=== PATIENT | female | born 1950 | race Caucasian/White ===

== ENCOUNTER → 2017-02-19 | Outpatient (CLI) | payer OTHER ==
--- NOTE | 2017-02-19 15:19 | MAMMOGRAPHY REPORT ---
BILATERAL DIGITAL SCREENING MAMMOGRAM WITH CAD: 02/19/2017 CLINICAL HISTORY: Routine screening. TECHNIQUE: Current study was also evaluated with a Computer Aided Detection (CAD) system. Bilateral CC and MLO views were obtained. COMPARISON: Comparison is made to exams dated: 02/16/2016 mammogram, 01/03/2015 mammogram, 12/31/2013 m ammogram, 06/10/2011 mammogram, 06/05/2010 mammogram, and 05/26/2009 mammogram - [facility]. BREAST COMPOSITION: There are scattered areas of fibroglandular density in both breasts. FINDINGS: No suspicious masses, calcifications, or areas of architectural distortion are noted in ei ther breast. There has been no significant interval change compared to prior exams. Scattered bilate ral benign-appearing calcifications are not significantly changed. 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 IMPRESSION: ACR BI-RADS CATEGORY 2: BENIGN There is no mammographic evidence of malignancy. A 1 year screening mammogram is recommended. The pa tient will receive written notification of the results. Approximately 10% of breast cancers are not detected with mammography. A negative mammographic report should not delay biopsy if a clinically suggestive mass is present. Gloria Lucio M.D. /:02/19/2017 09:18:55 Photo Technologist: Eyad MARTINEZ(R)(M), [facility] letter sent: Normal 1/2 BI-RADS Code: ACR BI-RADS Category 2: Benign
== END | disposition home or self-care (01) ==
LOC: C.MAMM 08:35
PROVIDERS: ATTEND Family Medicine
DX: Z12.31 Encounter for screening mammogram for malignant neoplasm of breast (principal)

== ENCOUNTER 2020-11-24 10:23 | Inpatient (IN) ==
--- NOTE | 2020-11-24 10:26 | Emergency Department Note ---
Impression & Plan Sepsis, UTI (urinary tract infection), Elevated troponin, MIKE (acute kidney injury), Acute hypoxemic respiratory failure ED Provider Note NAME: ORIN KUMAR AGE: 70 SEX: F : 1950 ARRIVES VIA: Ambulance INFORMANT: Patient, ED PROVIDER(S): Terell Burton MD Chief Complaint: Low blood pressure HPI: Patient does present from home due to concern for lower blood pressure and decreased activity. The patient's had found her in her lift chair this morning but seem to be having some difficulty with weakness and strength. The patient does have a history of Parkinson's and had a fall maybe a couple of days ago. The patient denies any current pains in her head neck chest abdomen pelvis. EMS did report the patient was hypotensive 60s over 40s and did initiate IV fluids. T-max 99.1 per EMS. BSG was normal. The patient denies any acute complaints at the bedside other than feelings of general unwellness. The patient has been vaccinated for Covid. The states that nothing seemed to miss yesterday but this morning she was not quite herself. EMS also reported she seemed to have a strong smell of urine. ROS: See HPI for pertinent positives and negatives. A total of 10 systems were re viewed and otherwise negative. Past medical history: See below Surgical history: See below Social history: See below Physical Exam: GENERAL: Ill in appearance, nasal cannula in place and wearing glasses. EYE EXAM: Normal conjunctiva. PERRL, no anisocoria and EOM's grossly intact w/o pain. OROPHARYNX: Dry mucus membranes. Grossly normal dentition. NECK: Supple, no nuchal rigidity, no adenopathy, non-tender. No signs of meningismus. LUNGS: Clear to auscultation. Normal chest wall mechanics. HEART: NSR, no MRG. ABDOMEN: Abdomen soft, non-tender, normo-active bowel sounds, no masses, no rebo und or guarding. BACK: No CVA TTP. SKIN: No rashes and no bruising. UPPER EXTREMITIES: Upper extremities are grossly normal. LOWER EXTREMITIES: Grossly normal, trace pretibial edema. NEURO EXAM: A&O x3, cranial nerves II-XII grossly intact, normal speech, moves all 4 extremities on command w/o issue. Differential diagnoses: Sepsis, UTI, pneumonia, metabolic, electrolyte abnormalities, cardiac sources, intracerebral event, toxicologic, neurologic, as well as other pathologies. Course: Patient was seen and evaluated the bedside. Full history physical exam was performed. EKG interpreted by me Imaging Studies: See below Cardiac monitoring: An order was placed for continuous cardiac monitoring. The monitor shows a rate of 95 with sinus rhythm. MDM: Given the patient's hypotension sepsis protocols were initiated with Zosyn ordered, MRSA swab and Covid testing. The patient was to be resuscitated with 2 L of IV fluids. Given the T-max of 99 IV Tylenol was ordered. The patient did have mild improvement in her hypotension to 80s over 50s. The patient's blood work was concerning for sepsis given the patient's elevated white counts acute renal failure and urinalysis that appears grossly positive for infection. Covid and nasal MRSA screen negative. Chest x-ray does not show obvious infection. Pro-Pernell was elevated. Patient's initial troponin was positive. Patient denied any chest pains or shortness of breath. Believe this may be demand ischemia given the patient's sepsis. Patient's lactate was elevated. I did speak the on-call hospitalist and a Noni Silverio PA-C. Patient was admitted by Dr. Michel. They did order a CAT scan abdomen pelvis. This did show a 4 mm stone. They did speak with urology. Patient's initial lactate was 4.8 and subsequent was 3.5 after 2 L. The patient was ordered a subsequent 500 which would be approximately 3000 mL for the time EMS had arrived. Given the patient was still hypotensive peripheral Levophed was ordered. Patient was admitted to the intensive care unit. Critical Care: I have personally spent 95 minutes of critical care time in direct management of this patient. This includes bedside care, interpretation of diagnostic studies, and testing, discussion with consultants, patient, and family members, and other require inpatient management activities. This 95 minutes is in excess of all separately billable procedures. Past Med/Surg History Medical History (Updated 11/24/20 @ 16:32 by Terell Burton MD) MIKE (acute kidney injury) Elevated troponin HTN (hypertension) Hyperlipidemia Osteoporosis Parkinsons Sepsis UTI (urinary tract infection) Surgical History History of tubal ligation Family History Father Lung cancer Stroke Mother Hypertension Social History Smoking Status: Never smoker Hx Alcohol Use: No Hx Substance Use: No Preferred Language: Nepali Communication Ability: sedated Operations Mgr Required: No marital status: Current Living Situation: Spouse Feels Safe at Home: Yes Allergies Allergies Allergy/AdvReac Type Severity Reaction Status Date / Time No Known Allergies Allergy Unverified 11/24/20 13:15 Home Meds Home Medications Medication Instructions Recorded Confirmed alendronate 70 mg PO WK 11/24/20 11/24/20 amlodipine 5 mg PO DAILY 11/24/20 11/24/20 atorvastatin 20 mg PO DAILY 11/24/20 11/24/20 carbidopa-levodopa 1 tab PO TID 11/24/20 11/24/20 Results & Data (ED) Vital Signs Vital Signs - 24 hr 11/24/20 10:28 11/24/20 10:30 11/24/20 10:31 Temperature 38.0 C H Temperature Source Rectal Pulse Rate 98 H 98 H 95 H Pulse Rate from SpO2 Sensor 98 H 96 H Pulse Rhythm Regular Pulse Strength Normal Respiratory Rate 15 22 18 Respiratory Effort / Characteristics Non-Labored Spontaneous Respiratory Depth Normal Respiratory Pattern Regular Blood Pressure 146/109 H 146/109 H 71/42 L Blood Pressure Mean 121 121 51 Blood Pressure Position Lying Pulse Oximetry 91 87 L 97 Oxygen Delivery Method Room Air Nasal Cannula Oxygen Flow Rate 4 Sepsis Recent Fever Within 48 Hours Yes Sepsis New/Unexplained Change in Mental Status Yes Sepsis Action Taken by Nursing Physician Notified 11/24/20 10:55 11/24/20 11:00 11/24/20 11:12 Temperature Temperature Source Pulse Rate 96 H 96 H Pulse Rate from SpO2 Sensor 96 H 95 H Pulse Rhythm Pulse Strength Respiratory Rate 18 17 Respiratory Effort / Characteristics Respiratory Depth Respiratory Pattern Blood Pressure 65/42 L 70/41 L Blood Pressure Mean 49 50 Blood Pressure Position Pulse Oximetry 96 95 95 Oxygen Delivery Method Nasal Cannula Nasal Cannula Nasal Cannula Oxygen Flow Rate 4 4 4 Sepsis Recent Fever Within 48 Hours Sepsis New/Unexplained Change in Mental Status Sepsis Action Taken by Nursing 11/24/20 11:13 11/24/20 11:31 11/24/20 11:34 Temperature Temperature Source Pulse Rate 91 H 91 H Pulse Rate from SpO2 Sensor 92 H 91 H Pulse Rhythm Pulse Strength Respiratory Rate 22 17 Respiratory Effort / Characteristics Respiratory Depth Respiratory Pattern Blood Pressure 78/39 L 75/40 L Blood Pressure Mean 52 51 Blood Pressure Position Pulse Oximetry 95 99 98 Oxygen Delivery Method Nasal Cannula Oxygen Flow Rate 4 Sepsis Recent Fever Within 48 Hours Sepsis New/Unexplained Change in Mental Status Sepsis Action Taken by Nursing 11/24/20 11:40 11/24/20 11:50 11/24/20 11:51 Temperature Temperature Source Pulse Rate 90 91 H 91 H Pulse Rate from SpO2 Sensor 90 91 H 90 Pulse Rhythm Pulse Strength Respiratory Rate 19 18 17 Respiratory Effort / Characteristics Respiratory Depth Respiratory Pattern Blood Pressure 67/36 L 72/53 L Blood Pressure Mean 46 59 Blood Pressure Position Pulse Oximetry 98 98 98 Oxygen Delivery Method Oxygen Flow Rate Sepsis Recent Fever Within 48 Hours Sepsis New/Unexplained Change in Mental Status Sepsis Action Taken by Nursing 11/24/20 12:00 11/24/20 12:01 11/24/20 12:10 Temperature Temperature Source Pulse Rate 86 87 88 Pulse Rate from SpO2 Sensor 86 87 88 Pulse Rhythm Pulse Strength Respiratory Rate 16 16 17 Respiratory Effort / Characteristics Respiratory Depth Respiratory Pattern Blood Pressure 74/38 L 71/42 L Blood Pressure Mean 50 51 Blood Pressure Position Pulse Oximetry 99 99 99 Oxygen Delivery Method Oxygen Flow Rate Sepsis Recent Fever Within 48 Hours Sepsis New/Unexplained Change in Mental Status Sepsis Action Taken by Nursing 11/24/20 12:11 11/24/20 12:20 11/24/20 12:21 Temperature Temperature Source Pulse Rate 88 90 91 H Pulse Rate from SpO2 Sensor 88 90 92 H Pulse Rhythm Pulse Strength Respiratory Rate 16 16 16 Respiratory Effort / Characteristics Respiratory Depth Respiratory Pattern Blood Pressure 78/51 L Blood Pressure Mean 60 Blood Pressure Position Pulse Oximetry 99 97 94 Oxygen Delivery Method Oxygen Flow Rate Sepsis Recent Fever Within 48 Hours Sepsis New/Unexplained Change in Mental Status Sepsis Action Taken by Nursing 11/24/20 12:30 11/24/20 12:33 11/24/20 12:41 Temperature Temperature Source Pulse Rate 91 H 90 91 H Pulse Rate from SpO2 Sensor 91 H 90 91 H Pulse Rhythm Pulse Strength Respiratory Rate 18 16 17 Respiratory Effort / Characteristics Respiratory Depth Respiratory Pattern Blood Pressure 61/48 L 80/46 L 81/46 L Blood Pressure Mean 52 57 57 Blood Pressure Position Pulse Oximetry 98 98 93 Oxygen Delivery Method Oxygen Flow Rate Sepsis Recent Fever Within 48 Hours Sepsis New/Unexplained Change in Mental Status Sepsis Action Taken by Nursing 11/24/20 12:51 11/24/20 13:02 11/24/20 13:10 Temperature Temperature Source Pulse Rate 93 H 92 H 92 H Pulse Rate from SpO2 Sensor 93 H 92 H Pulse Rhythm Pulse Strength Respiratory Rate 18 17 21 Respiratory Effort / Characteristics Respiratory Depth Respiratory Pattern Blood Pressure 77/48 L 95/56 L 77/45 L Blood Pressure Mean 57 69 55 Blood Pressure Position Pulse Oximetry 96 95 95 Oxygen Delivery Method Oxygen Flow Rate Sepsis Recent Fever Within 48 Hours Sepsis New/Unexplained Change in Mental Status Sepsis Action Taken by Nursing 11/24/20 13:30 Temperature Temperature Source Pulse Rate Pulse Rate from SpO2 Sensor 92 H Pulse Rhythm Pulse Strength Respiratory Rate 20 Respiratory Effort / Characteristics Respiratory Depth Respiratory Pattern Blood Pressure 74/44 L Blood Pressure Mean 54 Blood Pressure Position Pulse Oximetry 96 Oxygen Delivery Method Oxygen Flow Rate Sepsis Recent Fever Within 48 Hours Sepsis New/Unexplained Change in Mental Status Sepsis Action Taken by Detention Medications Current Medication List: was personally reviewed by me Laboratory Data Attestation: I reviewed the patient's lab results. Result diagrams: 11/24/20 11:17 11/24/20 11:17 Lab Results 11/24/20 11/24/20 11/24/20 Range/Units 10:55 11:17 11:17 WBC 27.92 H (4.8-10.8) K/uL RBC 4.26 (4.2-5.4) M/uL Hgb 12.1 (12.0-16.0) g/dL Hct 36.5 L (37-47) % MCV 85.7 (80-100) fL MCH 28.4 (25-34) pg MCHC 33.2 (32-36) g/dL RDW Std Deviation 49.7 H (36.4-46.3) fL RDW Coeff of Donato 15.8 H (11.5-14.5) % Plt Count 92 L (130-400) K/uL MPV 11.1 H (7.4-10.4) fL Immature Gran % (Auto) 2.3 % Neut % (Auto) 91.9 % Lymph % (Auto) 2.6 % Long % (Auto) 3.1 % Eos % (Auto) 0.0 % Baso % (Auto) 0.1 % Neut # (Auto) 25.66 H (1.4-6.5) K/uL Lymph # (Auto) 0.73 L (1.2-3.4) K/uL Long # (Auto) 0.86 H (0.11-0.59) K/uL Eos # (Auto) 0.01 (0-0.5) K/uL Baso # (Auto) 0.02 (0-0.2) K/uL Immature Gran # (Auto) 0.64 H (0.00-0.02) K/uL Toxic Vacuolation 2+ Platelet Estimate Decreased L (Normal) PT 13.6 H (9.0-12.0) Seconds INR 1.4 H (0.9-1.1) APTT 44.8 H (21.0-31.0) Seconds PTT Ratio 1.7 Sodium (136-145) mmol/L Potassium (3.5-5.1) mmol/L Chloride (98-107) mmol/L Carbon Dioxide (21-32) mmol/L Anion Gap (3-11) BUN (7-18) mg/dl Creatinine (0.6-1.2) mg/dl Est Cr Clr Drug Dosing ml/min Est GFR ( Amer) ml/min Est GFR (Non-Af Amer) ml/min BUN/Creatinine Ratio (10-20) Glucose (70-99) mg/dl Lactate (0.4-2.0) mmol/L Calcium (8.5-10.1) mg/dl Magnesium (1.8-2.4) mg/dl Total Bilirubin (0.2-1) mg/dl AST (15-37) U/L ALT (12-78) U/L Alkaline Phosphatase (45-117) U/L Troponin I (0-0.045) ng/ml Total Protein (6.4-8.2) gm/dl Albumin (3.4-5.0) gm/dl Globulin (2.5-4.0) gm/dl Albumin/Globulin Ratio (0.9-2) Procalcitonin (0-0.5) ng/ml Random Cortisol mcg/dl Urine Color [place] Urine Appearance Turbid A (Clear) Urine pH 7.0 (4.5-7.5) Ur Specific [place] 1.015 (1.000-1.030) Urine Protein 2+ H (Negative) Urine Glucose (UA) Negative (Negative) Urine Ketones Trace H (Negative) Urine Blood 3+ H (Negative) Urine Nitrite Negative (Negative) Urine Bilirubin Negative (Negative) Urine Urobilinogen Negative (Negative) Ur Leukocyte Esterase 3+ H (Negative) Urine WBC (Auto) >30 H (0-5) /hpf Urine RBC (Auto) >30 H (0-4) /hpf U Hyaline Cast (Auto) 10-30 H (0-5) /lpf U Epithel Cells (Auto) >30 H (0-5) /lpf Urine Bacteria (Auto) 4+ H (Negative) Nasal Screen MRSA (PCR) (Negative) COVID-19 Eval Order SARS-CoV-2 (PCR) (Negative) 11/24/20 11/24/20 11/24/20 Range/Units 11:17 11:17 11:17 WBC (4.8-10.8) K/uL RBC (4.2-5.4) M/uL Hgb (12.0-16.0) g/dL Hct (37-47) % MCV (80-100) fL MCH (25-34) pg MCHC (32-36) g/dL RDW Std Deviation (36.4-46.3) fL RDW Coeff of Donato (11.5-14.5) % Plt Count (130-400) K/uL MPV (7.4-10.4) fL Immature Gran % (Auto) % Neut % (Auto) % Lymph % (Auto) % Long % (Auto) % Eos % (Auto) % Baso % (Auto) % Neut # (Auto) (1.4-6.5) K/uL Lymph # (Auto) (1.2-3.4) K/uL Long # (Auto) (0.11-0.59) K/uL Eos # (Auto) (0-0.5) K/uL Baso # (Auto) (0-0.2) K/uL Immature Gran # (Auto) (0.00-0.02) K/uL Toxic Vacuolation Platelet Estimate (Normal) PT (9.0-12.0) Seconds INR (0.9-1.1) APTT (21.0-31.0) Seconds PTT Ratio Sodium 141 (136-145) mmol/L Potassium 3.3 L (3.5-5.1) mmol/L Chloride 108 H (98-107) mmol/L Carbon Dioxide 21 (21-32) mmol/L Anion Gap 13.0 H (3-11) BUN 47 H (7-18) mg/dl Creatinine 3.88 H (0.6-1.2) mg/dl Est Cr Clr Drug Dosing 15.2 ml/min Est GFR ( Amer) 12.7 ml/min Est GFR (Non-Af Amer) 10.9 ml/min BUN/Creatinine Ratio 12.1 (10-20) Glucose 80 (70-99) mg/dl Lactate 4.8 H* (0.4-2.0) mmol/L Calcium 8.1 L (8.5-10.1) mg/dl Magnesium 1.8 (1.8-2.4) mg/dl Total Bilirubin 1.0 (0.2-1) mg/dl AST 131 H (15-37) U/L ALT 67 (12-78) U/L Alkaline Phosphatase 98 (45-117) U/L Troponin I 0.156 H* (0-0.045) ng/ml Total Protein 5.8 L (6.4-8.2) gm/dl Albumin 2.7 L (3.4-5.0) gm/dl Globulin 3.1 (2.5-4.0) gm/dl Albumin/Globulin Ratio 0.9 (0.9-2) Procalcitonin > 200.00 H (0-0.5) ng/ml Random Cortisol mcg/dl Urine Color Urine Appearance (Clear) Urine pH (4.5-7.5) Ur Specific [place] (1.000-1.030) Urine Protein (Negative) Urine Glucose (UA) (Negative) Urine Ketones (Negative) Urine Blood (Negative) Urine Nitrite (Negative) Urine Bilirubin (Negative) Urine Urobilinogen (Negative) Ur Leukocyte Esterase (Negative) Urine WBC (Auto) (0-5) /hpf Urine RBC (Auto) (0-4) /hpf U Hyaline Cast (Auto) (0-5) /lpf U Epithel Cells (Auto) (0-5) /lpf Urine Bacteria (Auto) (Negative) Nasal Screen MRSA (PCR) (Negative) COVID-19 Eval Order SARS-CoV-2 (PCR) (Negative) 11/24/20 11/24/20 11/24/20 Range/Units 11:17 11:20 11:20 WBC (4.8-10.8) K/uL RBC (4.2-5.4) M/uL Hgb (12.0-16.0) g/dL Hct (37-47) % MCV (80-100) fL MCH (25-34) pg MCHC (32-36) g/dL RDW Std Deviation (36.4-46.3) fL RDW Coeff of Donato (11.5-14.5) % Plt Count (130-400) K/uL MPV (7.4-10.4) fL Immature Gran % (Auto) % Neut % (Auto) % Lymph % (Auto) % Long % (Auto) % Eos % (Auto) % Baso % (Auto) % Neut # (Auto) (1.4-6.5) K/uL Lymph # (Auto) (1.2-3.4) K/uL Long # (Auto) (0.11-0.59) K/uL Eos # (Auto) (0-0.5) K/uL Baso # (Auto) (0-0.2) K/uL Immature Gran # (Auto) (0.00-0.02) K/uL Toxic Vacuolation Platelet Estimate (Normal) PT (9.0-12.0) Seconds INR (0.9-1.1) APTT (21.0-31.0) Seconds PTT Ratio Sodium (136-145) mmol/L Potassium (3.5-5.1) mmol/L Chloride (98-107) mmol/L Carbon Dioxide (21-32) mmol/L Anion Gap (3-11) BUN (7-18) mg/dl Creatinine (0.6-1.2) mg/dl Est Cr Clr Drug Dosing ml/min Est GFR ( Amer) ml/min Est GFR (Non-Af Amer) ml/min BUN/Creatinine Ratio (10-20) Glucose (70-99) mg/dl Lactate (0.4-2.0) mmol/L Calcium (8.5-10.1) mg/dl Magnesium (1.8-2.4) mg/dl Total Bilirubin (0.2-1) mg/dl AST (15-37) U/L ALT (12-78) U/L Alkaline Phosphatase (45-117) U/L Troponin I (0-0.045) ng/ml Total Protein (6.4-8.2) gm/dl Albumin (3.4-5.0) gm/dl Globulin (2.5-4.0) gm/dl Albumin/Globulin Ratio (0.9-2) Procalcitonin (0-0.5) ng/ml Random Cortisol 107.18 mcg/dl Urine Color Urine Appearance (Clear) Urine pH (4.5-7.5) Ur Specific [place] (1.000-1.030) Urine Protein (Negative) Urine Glucose (UA) (Negative) Urine Ketones (Negative) Urine Blood (Negative) Urine Nitrite (Negative) Urine Bilirubin (Negative) Urine Urobilinogen (Negative) Ur Leukocyte Esterase (Negative) Urine WBC (Auto) (0-5) /hpf Urine RBC (Auto) (0-4) /hpf U Hyaline Cast (Auto) (0-5) /lpf U Epithel Cells (Auto) (0-5) /lpf Urine Bacteria (Auto) (Negative) Nasal Screen MRSA (PCR) Negative (Negative) COVID-19 Eval Order Covid19 at [facility] SARS-CoV-2 (PCR) (Negative) 11/24/20 Range/Units 11:20 WBC (4.8-10.8) K/uL RBC (4.2-5.4) M/uL Hgb (12.0-16.0) g/dL Hct (37-47) % MCV (80-100) fL MCH (25-34) pg MCHC (32-36) g/dL RDW Std Deviation (36.4-46.3) fL RDW Coeff of Donato (11.5-14.5) % Plt Count (130-400) K/uL MPV (7.4-10.4) fL Immature Gran % (Auto) % Neut % (Auto) % Lymph % (Auto) % Long % (Auto) % Eos % (Auto) % Baso % (Auto) % Neut # (Auto) (1.4-6.5) K/uL Lymph # (Auto) (1.2-3.4) K/uL Long # (Auto) (0.11-0.59) K/uL Eos # (Auto) (0-0.5) K/uL Baso # (Auto) (0-0.2) K/uL Immature Gran # (Auto) (0.00-0.02) K/uL Toxic Vacuolation Platelet Estimate (Normal) PT (9.0-12.0) Seconds INR (0.9-1.1) APTT (21.0-31.0) Seconds PTT Ratio Sodium (136-145) mmol/L Potassium (3.5-5.1) mmol/L Chloride (98-107) mmol/L Carbon Dioxide (21-32) mmol/L Anion Gap (3-11) BUN (7-18) mg/dl Creatinine (0.6-1.2) mg/dl Est Cr Clr Drug Dosing ml/min Est GFR ( Amer) ml/min Est GFR (Non-Af Amer) ml/min BUN/Creatinine Ratio (10-20) Glucose (70-99) mg/dl Lactate (0.4-2.0) mmol/L Calcium (8.5-10.1) mg/dl Magnesium (1.8-2.4) mg/dl Total Bilirubin (0.2-1) mg/dl AST (15-37) U/L ALT (12-78) U/L Alkaline Phosphatase (45-117) U/L Troponin I (0-0.045) ng/ml Total Protein (6.4-8.2) gm/dl Albumin (3.4-5.0) gm/dl Globulin (2.5-4.0) gm/dl Albumin/Globulin Ratio (0.9-2) Procalcitonin (0-0.5) ng/ml Random Cortisol mcg/dl Urine Color Urine Appearance (Clear) Urine pH (4.5-7.5) Ur Specific [place] (1.000-1.030) Urine Protein (Negative) Urine Glucose (UA) (Negative) Urine Ketones (Negative) Urine Blood (Negative) Urine Nitrite (Negative) Urine Bilirubin (Negative) Urine Urobilinogen (Negative) Ur Leukocyte Esterase (Negative) Urine WBC (Auto) (0-5) /hpf Urine RBC (Auto) (0-4) /hpf U Hyaline Cast (Auto) (0-5) /lpf U Epithel Cells (Auto) (0-5) /lpf Urine Bacteria (Auto) (Negative) Nasal Screen MRSA (PCR) (Negative) COVID-19 Eval Order SARS-CoV-2 (PCR) NEGATIVE (Negative) Administered Medications Norepinephrine Bitartrate (Levophed/D5w) 8 mg in 508 mls @ 18.726 mls/hr IV .Q24H CHRISTIAN; Protocol Stop: 12/24/20 13:59 Last Titration: 11/24/20 15:30 Dose: 0 mcg/kg/min, 0 mls/hr Documented by: [id number] Titration: 11/24/20 14:35 Dose: 0.07 mcg/kg/min, 26.2 mls/hr Documented by: [id number] Admin: 11/24/20 14:09 Dose: 0.05 mcg/kg/min, 18.7 mls/hr Documented by: [id number] Cosigned by: [id number] Parenteral Electrolytes (Normosol-R) 1,000 mls @ 200 mls/hr IV .Q5H CHRISTIAN Stop: 12/24/20 15:59 Last Admin: 11/24/20 16:23 Dose: 200 mls/hr Documented by: [id number] Piperacillin Sod/Tazobactam (Sod 3.375 gm/ Dextrose) 115 mls @ 28.75 mls/hr IV Q12H CHRISTIAN; Protocol Stop: 12/03/20 19:59 Last Admin: 11/24/20 16:27 Dose: 28.8 mls/hr Documented by: [id number] Discontinued Medications Sodium Chloride (Nss 1000ml) 1,000 mls @ 999 mls/hr IV .Q1H1M [facility]RISTIAN Stop: 11/24/20 11:34 Last Infusion: 11/24/20 12:03 Dose: 0 mls/hr Documented by: [id number] Admin: 11/24/20 11:02 Dose: 999 mls/hr Documented by: [id number] Sodium Chloride (Nss 1000ml) 1,000 mls @ 999 mls/hr IV .Q1H1M CHRISTIAN Stop: 11/24/20 12:34 Last Infusion: 11/24/20 12:03 Dose: 0 mls/hr Documented by: [id number] Admin: 11/24/20 11:02 Dose: 999 mls/hr Documented by: [id number] Piperacillin Sod/Tazobactam Sod (Zosyn) 4.5 gm in 120 mls @ 240 mls/hr IV NOW ONE Stop: 11/24/20 11:03 Last Infusion: 11/24/20 12:03 Dose: 0 mls/hr Documented by: [id number] Admin: 11/24/20 11:34 Dose: 240 mls/hr Documented by: [id number] Acetaminophen (Ofirmev) 1,000 mg in 100 mls @ 400 mls/hr IV NOW STA Stop: 11/24/20 10:52 Last Infusion: 11/24/20 11:49 Dose: 0 mls/hr Documented by: [id number] Admin: 11/24/20 11:34 Dose: 400 mls/hr Documented by: [id number] Sodium Chloride (Nss 1000ml) 500 mls @ 999 mls/hr IV .Q31M ONE Stop: 11/24/20 14:27 Last Infusion: 11/24/20 14:38 Dose: 0 mls/hr Documented by: [id number] Admin: 11/24/20 13:59 Dose: 999 mls/hr Documented by: [id number] Miscellaneous (Stat Iv Infusion Titration Per Protocol) 1 ea N/A NOW STA Stop: 11/24/20 13:59 Last Admin: 11/24/20 14:39 Dose: Not Given Documented by: [id number] Imaging Data Radiologist's Impression: Chest X-Ray 11/24/20 10:34 XR chest 1V portable CLINICAL HISTORY: SEPSIS COMPARISON STUDY: No previous studies for comparison. FINDINGS: Incidental note is made of deformity of the left humeral head with severe osteoarthritis. Lung volumes are diminished. There may be a trace left pleural effusion. There is mild left basilar opacity. Cardiomegaly is noted. There is vascular congestion. Patient is rotated. Calcified granuloma within the left lower lung is noted. IMPRESSION: 1. Suspected trace left pleural effusion with mild left basilar opacity that favors atelectasis. 2. Cardiomegaly. Pulmonary vascular congestion. ACT 112: Negative or not required by law. Electronically signed by: Prasanna De Santiago M.D. 11/24/2020 11:22 AM Abdomen/Pelvis CT 11/24/20 12:[address] WITHOUT CONTRAST CT DOSE: 1206.15 mGycm HISTORY: Right-sided flank pain. eval for pyelonephritis/renal stone TECHNIQUE: Multiaxial CT images of the abdomen and pelvis were performed without contrast. A dose lowering technique was utilized adhering to the principles of ALARA. COMPARISON STUDY: None. FINDINGS: There are few small right renal calculi with the largest in the lower pole measuring 5 mm. Mild bilateral perinephric edema/fat stranding, right greater the left. There appear to be bilateral peripelvic cysts. There is also a 1.5 cm right exophytic hypodense lesion within the right kidney likely representing a cyst. There is mild to moderate right-sided hydroureteronephrosis secondary to an obstructing 4 mm stone within the distal right ureter best seen on image 388. This is immediately proximal to the right ureterovesical junction. The bladder is decompressed by Victor catheter. No left-sided hydronephrosis. Calcified granuloma seen within the base of the left lower lobe. There are patchy densities within the lungs posteriorly. This favors atelectasis/dependent change. No pneumoperitoneum. No pneumatosis. No suspicious lytic or blastic osseous lesions. There is a small fat-containing umbilical hernia. The uterus and bilateral adnexa are within normal limits. No pelvic free fluid. Suboptimal evaluation for bowel pathology due to the lack of intravenous and oral contrast. However, there is no definite bowel wall thickening or obstruction. Normal appendix. Layering density within the gallbladder favors small stones. The unenhanced liver, spleen, and pancreas are unremarkable. No retroperitoneal lymphadenopathy. Normal right adrenal gland. There is nodular thickening of the left adrenal gland. IMPRESSION: 1. A 4 mm obstructing stone within the distal right ureter resulting in mild to moderate right-sided hydronephrosis. 2. Right-sided nephrolithiasis. 3. No definite bowel wall thickening or obstruction. 4. Consolidation within the lungs posteriorly favors atelectasis. A pneumonia could also have a similar appearance. 4. Possible cholelithiasis. No gallbladder wall thickening. 6. The bladder is decompressed by Victor catheter. ACT 112: Negative or not required by law. Electronically signed by: Brad Langford M.D. 11/24/2020 1:43 PM Discharge Plan Visit Data Chief Complaint: Illness ED Provider: Terell Burton Discharge Problem: Sepsis, UTI (urinary tract infection), Elevated troponin, MIKE (acute kidney injury), Acute hypoxemic respiratory failure Discharge Instructions Interventions: ED Discharge Assessment Last Done: 11/24/20 14:42 Discharge Problem: Sepsis Qualifiers: Sepsis type: sepsis due to unspecified organism Sepsis acute organ dysfunction status: with acute organ dysfunction Severe sepsis acute organ dysfunction type: acute renal failure Acute renal failure type: unspecified Severe sepsis shock status: with septic shock Qualified Code(s): A41.9 - Sepsis, unspecified organism UTI (urinary tract infection) Qualifiers: Urinary tract infection type: site unspecified
[2020-11-24] MEDS ORDERED: PIPERACILL/TAZOBAC CONSULT ACTIVE PRN (10:34)
[2020-11-24] MEDS ORDERED: PIPERACILLIN/TAZOBACTAM 4.5 GM/120 ML BAG IV ONE (10:34)
[2020-11-24] MEDS ORDERED: ACETAMINOPHEN 1,000 MG/100 ML VIAL IV STA (10:38)
[2020-11-24] MEDS ORDERED: SODIUM CHLORIDE 0.9% 1000ML 1,000 ML IV SCH ×2 (10:45→11:34)
--- NOTE | 2020-11-24 11:24 | XRay Report ---
XR chest 1V portable CLINICAL HISTORY: SEPSIS COMPARISON STUDY: No previous studies for comparison. FINDINGS: Incidental note is made of deformity of the left humeral head with severe osteoarthritis. L michelle volumes are diminished. There may be a trace left pleural effusion. There is mild left basilar op acity. Cardiomegaly is noted. There is vascular congestion. Patient is rotated. Calcified granuloma w ithin the left lower lung is noted. IMPRESSION: 1. Suspected trace left pleural effusion with mild left basilar opacity that favors atelectasis. 2. Cardiomegaly. Pulmonary vascular congestion. ACT 112: Negative or not required by law. Electronically signed by: Prasanna De Santiago M.D. 11/24/2020 11:22 AM
[2020-11-24 11:31] LABS: Appearance Urine Turbid (Clear); Bacteria Urine Automated 4+ (Negative); Bilirubin Urine Negative (Negative); Blood Urine 3+ (Negative); Color Urine Orange; Epithelial Cell Urine Auto >30 /lpf (0-5); Glucose Urine UA Negative (Negative); Ketones Urine Trace (Negative); Leukocyte Esterase Urine 3+ (Negative); Nitrite Urine Negative (Negative); Protein Urine 2+ (Negative); RBC Urine Automated >30 /hpf (0-4); Specific Gravity Urine 1.015 (1.000-1.030); Urobilinogen Urine Negative (Negative); WBC Urine Automated >30 /hpf (0-5)
[2020-11-24 11:37] LABS: INR 1.4 (0.9-1.1); Partial Thromboplastin Ratio 1.7; Partial Thromboplastin Time 44.8 Seconds (21.0-31.0); Prothrombin Time 13.6 Seconds (9.0-12.0)
--- NOTE | 2020-11-24 11:42 | Electrocardiogram Report ---
Test Reason : Blood Pressure : / mmHG Vent. Rate : 096 BPM Atrial Rate : 096 BPM P-R Int : 158 ms QRS Dur : 072 ms QT Int : 380 ms P-R-T Axes : 030 005 009 degrees QTc Int : 480 ms Poor data quality, interpretation may be adversely affected Normal sinus rhythm Nonspecific ST and T wave abnormality Abnormal ECG No previous ECGs available Confirmed by Pedro Mayo ([id number]) on 11/24/2020 11:42:37 AM Referred By: REFERRED SELF Confirmed By:Giovanni Mayo
[2020-11-24 11:46] LABS: Albumin Level 2.7 gm/dl (3.4-5.0); BUN Creatinine Ratio 12.1 (10-20); Basophils # (auto) 0.02 K/uL (0-0.2); Basophils % (auto) 0.1 %; Calcium 8.1 mg/dl (8.5-10.1); Creatinine Clr Calc Pharmacy 15.2 ml/min; Eosinophils # (auto) 0.01 K/uL (0-0.5); Est GFR (African American) 12.7 ml/min; Est GFR (Non-African American) 10.9 ml/min; Hematocrit (blood only) 36.5 % (37-47); Hemoglobin 12.1 g/dL (12.0-16.0); Immature Granulocytes # (auto) 0.64 K/uL (0.00-0.02); Immature Granulocytes % (auto) 2.3 %; Lymphocytes # (auto) 0.73 K/uL (1.2-3.4); Lymphocytes % (auto) 2.6 %; Magnesium 1.8 mg/dl (1.8-2.4); Mean Corpuscular Hemoglobin 28.4 pg (25-34); Mean Corpuscular Hgb Conc 33.2 g/dL (32-36); Mean Corpuscular Volume 85.7 fL (80-100); Mean Platelet Volume 11.1 fL (7.4-10.4); Monocytes # (auto) 0.86 K/uL (0.11-0.59); Monocytes % (auto) 3.1 %; Neutrophils # (auto) 25.66 K/uL (1.4-6.5); Neutrophils % (auto) 91.9 %; Platelet Count 92 K/uL (130-400); Platelet Estimate Decreased (Normal); Potassium 3.3 mmol/L (3.5-5.1); RDW Coefficient of Variation 15.8 % (11.5-14.5); RDW Standard Deviation 49.7 fL (36.4-46.3); Red Blood Count 4.26 M/uL (4.2-5.4); Toxic Vacuolation 2+; White Blood Count 27.92 K/uL (4.8-10.8)
[2020-11-24 12:07] LABS: Albumin Globulin Ratio 0.9 (0.9-2); Globulin 3.1 gm/dl (2.5-4.0); Total Protein 5.8 gm/dl (6.4-8.2); Troponin I 0.156 ng/ml (0-0.045)
--- NOTE | 2020-11-24 13:07 | Communication Note ---
Date of Service: November 24, 2020 This is a 70-year-old female with past medical history of hyperlipidemia/hypertension, presented with confusion and altered mental status as generalized weakness, Found to be in severe sepsis with septic shock, source of infection possible UTI/pyelonephritis Patient is very lethargic in the ER information obtained mostly from patient's present at bedside Per , in the evening patient was found to be very weak and lethargic, found her on the chair, alf between falling down to floor, He tried to help the patient get up on the chair, Does not recall whether patient had any fever or chills This morning as her condition worsened brought to SBP was 61/48 And received IV fluid bolus 2 L, Victor catheter was inserted, no urine output noted Marked leukocytosis 27K with left shift, thrombocytopenia Elevated lactic acid of 4, spontaneous coagulopathy with INR 1.4, on no anticoagulation Renal failure with creatinine more than 3 Per prior lab in clinic baseline creatinine 0.6 Patient remains lethargic, opens eyes briefly, and moaning with pain" states her back hurts" Physical exam: General ill-appearing, very lethargic, HEENT very dry oral mucosa Heart: Regular S1 and S2, tachycardia, bilateral +1 edema noted Lungs: No rales or wheeze noted Abdomen: Patient reports of having back pain, could not reproduce flank pain, very lethargic Abdomen soft, nontender bowel sounds active Neuro, difficult to assess, patient does move all limbs,/very lethargic, responding briefly to voice Assessment and plan Severe sepsis with septic shock: Patient meets criteria for severe sepsis, admitted with hypotension/ tachycardia, fever leukocytosis with elevated lactic acid level, acute renal failure Possible source?, UTI versus pyelonephritis Patient was given IV Zosyn in the ER, will continue with IV cefepime CT abdomen pelvis noncontrast to rule out ureteric obstructive stone Admit to ICU as patient remains profoundly hypotensive in spite of getting fluid resuscitation Urine and blood culture ordered Discussed with patient's at bedside, okay for mechanical ventilation/CPR/IV pressors,/dialysis if needed Case discussed briefly over phone with ICU attending Lethargy/metabolic encephalopathy: Secondary to severe sepsis, IV fluid resuscitation antibiotics as above Acute renal failure, anuria/possible ATN with elevated anion gap metabolic acidosis: Possible secondary to uremia, lactic acidosis secondary to hypotension severe sepsis Continue IV fluids, minimum Nephrology consulted, Avoid NSAIDs, CT abdomen pelvis noncontrast studies only With BMP, lactic acid in 4 hours Patient remains critically ill, updated at bedside CODE STATUS full code confirmed with patient's DVT prophylaxis: Pharmacological anticoagulation avoided secondary to thrombocytopenia(to severe sepsis) Patient requires ICU admission
--- NOTE | 2020-11-24 13:17 | History & Physical Report ---
Date of Service November 24, 2020 Assessment & Plan (1) Sepsis: (2) UTI (urinary tract infection): Pt is 70 y/o F with PMH HTN, HLD, Parkinson's, mild cognitive impairment, presented to ER with c/o weakness, lethargy, mental status change since yesterday afternoon. In ER patient febrile with temp 38C rectally, P: 98, RR: 22, BP 71/42, 87% on room air WBC: 27, PLT: 92, INR: 1.4, BUN: 47, Cr: 3.8, lactate: 4.8, pro calcitonin > 200, UA: Consistent with UTI CXR: Suspected trace left pleural effusion with mild left basilar opacity that favors atelectasis. Cardiomegaly. Pulmonary vascular congestion In ER given Zosyn, IV Tylenol. Pt BP at 81/46 after 2L NSS bolus Pt with Victor placed in ER with no urine output -Obtain CT abdomen pelvis to rule out obstructing stone causing urosepsis and MIKE -Pt to ICU. Still hypotensive. May require pressors -IVF -Trend lactate -Continue antibiotics (3) Elevated troponin: Elevated troponin: 0.15. EKG sinus rhythm with nonspecific ST changes Probable demand ischemia -Trend troponin -EKG in am (4) MIKE (acute kidney injury): BUN: 47, Cr: 3.8. Baseline Cr: 0.8 -May be secondary to sepsis, dehydration. Rule out obstructing calculi -Nephrology consult (5) Abnormal coagulation profile: PT: 13.6, INR: 1.4. Probable secondary to sepsis -Monitor coags (6) HTN (hypertension): Currently hypotensive -Hold home amlodipine (7) Parkinsons: [place] [facility] [place] Sinemet currently DVT Prophylaxis SCDs Full Code as per discussion with pt's Follows with Dr Martell for routine care Pt was seen and care coordinated with Dr Michel. See addendum History of Present Illness Chief Complaint: Weakness Primary Care Provider: Konstantin Martell MD Pt is 70 y/o F with PMH HTN, HLD, Parkinson's, mild cognitive impairment, presented to ER with c/o weakness, lethargy, mental status change since yesterday. Majority of history obtained from patient's secondary to patient's current condition. Patient's reports patient was in normal health yesterday morning and went to the [employer]. He states when he came home from work 6 hours later patient was sitting in her chair however was slumped over in chair. He reports that she was slow to respond and he thought she had some slurred speech. He states he tried to get her to the bathroom and she was staggering and having difficulty ambulating. He reports patient does not use any assistive devices for ambulation at baseline. He was able to get patient back in chair where she normally sleeps. Upon awakening this morning patient appeared more lethargic and had continued slow responses and EMS was called. In route EMS reported patient hypotensive. Patient currently complaining of back pain. She is alert to person place and year, and is slow to respond. Denies shortness of breath or chest pain or headache. reports patient with chronic postnasal drip and cough in the mornings however denies any noted increased cough. He is unaware of any fevers or chills or vomiting. He reports her last known BM was yesterday. Patient received second COVID-19 vaccination 4 days ago. Denies any known history of kidney stones in the past. reports patient normally needs to sit on toilet a while before she can urinate, he did not notice any blood in her urine when he took her to the bathroom yesterday. He does not think patient urinated since yesterday evening. Last ate breakfast yesterday. Last medications taken were yesterday morning. Denies recent travel, ill contacts. Allergies Allergy/AdvReac Type Severity Reaction Status Date / Time No Known Allergies Allergy Unverified 11/24/20 13:15 Home Medications Medication Instructions Recorded Confirmed Type alendronate 70 mg PO WK 11/24/20 11/24/20 History amlodipine 5 mg PO DAILY 11/24/20 11/24/20 History atorvastatin 20 mg PO DAILY 11/24/20 11/24/20 History carbidopa-levodopa 1 tab PO TID 11/24/20 11/24/20 History Past Med/Surg History Medical History HTN (hypertension) Hyperlipidemia Osteoporosis Parkinsons Surgical History History of tubal ligation Family History Father Lung cancer Stroke Mother Hypertension Social History Smoking Status: Never smoker Hx Alcohol Use: No Hx Substance Use: No Preferred Language: Azeri marital status: Current Living Situation: Spouse Feels Safe at Home: Yes Review of Systems Review of Systems: Unobtainable due to cognitive status Physical Exam Physical Exam: General: obese elderly female, +ill appearing Head: normocephalic, atraumatic Eyes: PERRL, EOM's intact, conjunctiva non-injected, anicteric ENT: normal inspection external ears, nose, mucous membranes dry Neck: supple, trachea midline Lungs: On 4L oxygen via NC with sat 98%, appear clear, no respiratory distress, no wheezing/rhonchi/rales CV: RRR, rate 98, no murmur, 2+ pretibial edema Abd: normal BS, soft, non-tender, no apparent CVA tenderness to palpation Ext: no cyanosis, no erythema Neuro: Alert, oriented to self, place and year however with slow responses Skin: warm, dry; sacrum with erythema and central eschar Results & Data Results & Data ([facility]) Vital Signs (Past 12 Hours) Vital Signs Temp Pulse Resp BP Pulse Ox 11/24/20 12:41 91 H 17 81/46 L 93 11/24/20 12:33 90 16 80/46 L 98 11/24/20 12:30 91 H 18 61/48 L 98 11/24/20 12:21 91 H 16 78/51 L 94 11/24/20 12:20 90 16 97 11/24/20 12:11 88 16 99 11/24/20 12:10 88 17 71/42 L 99 11/24/20 12:01 87 16 99 11/24/20 12:00 86 16 74/38 L 99 11/24/20 11:51 91 H 17 98 11/24/20 11:50 91 H 18 72/53 L 98 11/24/20 11:40 90 19 67/36 L 98 11/24/20 11:34 91 H 17 75/40 L 98 11/24/20 11:31 91 H 22 78/39 L 99 11/24/20 11:13 95 11/24/20 11:12 95 11/24/20 11:00 96 H 17 70/41 L 95 11/24/20 10:55 96 H 18 65/42 L 96 11/24/20 10:31 95 H 18 71/42 L 97 11/24/20 10:30 38.0 C H 98 H 22 146/109 H 87 L 11/24/20 10:28 98 H 15 146/109 H 91 Laboratory Results Short CBC 11/24/20 Range/Units 11:17 WBC 27.92 H (4.8-10.8) K/uL Hgb 12.1 (12.0-16.0) g/dL Hct 36.5 L (37-47) % Plt Count 92 L (130-400) K/uL BMP 11/24/20 11:17 Sodium 141 Potassium 3.3 L Chloride 108 H Carbon Dioxide 21 BUN 47 H Creatinine 3.88 H Glucose 80 Calcium 8.1 L Cardiac Enzymes 11/24/20 Range/Units 11:17 Troponin I 0.156 H* (0-0.045) ng/ml Liver Function 11/24/20 Range/Units 11:17 Total Bilirubin 1.0 (0.2-1) mg/dl AST 131 H (15-37) U/L ALT 67 (12-78) U/L Alkaline Phosphatase 98 (45-117) U/L Albumin 2.7 L (3.4-5.0) gm/dl Urine 11/24/20 Range/Units 10:55 Urine Color Wal[place] Urine Appearance Turbid A (Clear) Urine pH 7.0 (4.5-7.5) Ur Specific [place] 1.015 (1.000-1.030) Urine Protein 2+ H (Negative) Urine Glucose (UA) Negative (Negative) Diagnostic Findings Chest X-Ray 11/24/20 10:34 XR chest 1V portable CLINICAL HISTORY: SEPSIS COMPARISON STUDY: No previous studies for comparison. FINDINGS: Incidental note is made of deformity of the left humeral head with severe osteoarthritis. Lung volumes are diminished. There may be a trace left pleural effusion. There is mild left basilar opacity. Cardiomegaly is noted. There is vascular congestion. Patient is rotated. Calcified granuloma within the left lower lung is noted. IMPRESSION: 1. Suspected trace left pleural effusion with mild left basilar opacity that favors atelectasis. 2. Cardiomegaly. Pulmonary vascular congestion. ACT 112: Negative or not required by law. Electronically signed by: Prasanna De Santiago M.D. 11/24/2020 11:22 AM ECG Rate (beats per minute): 98 Rhythm: sinus rhythm Findings: + nonspecific-ST abn Supervising Physician Co-Signing Physician Notes This is a 70-year-old female with past medical history of hyperlipidemia/hypertension, presented with confusion and altered mental status as generalized weakness, Found to be in severe sepsis with septic shock, source of infection possible UTI/pyelonephritis Patient is very lethargic in the ER information obtained mostly from patient's present at bedside Per , in the evening patient was found to be very weak and lethargic, found her on the chair, senior living between falling down to floor, He tried to help the patient get up on the chair, Does not recall whether patient had any fever or chills This morning as her condition worsened brought to SBP was 61/48 And received IV fluid bolus 2 L, Victor catheter was inserted, no urine output noted Marked leukocytosis 27K with left shift, thrombocytopenia Elevated lactic acid of 4, spontaneous coagulopathy with INR 1.4, on no antico agulation Renal failure with creatinine more than 3 Per prior lab in clinic baseline creatinine 0.6 Patient remains lethargic, opens eyes briefly, and moaning with pain" states her back hurts" Physical exam: General ill-appearing, very lethargic, HEENT very dry oral mucosa Heart: Regular S1 and S2, tachycardia, bilateral +1 edema noted Lungs: No rales or wheeze noted Abdomen: Patient reports of having back pain, could not reproduce flank pain, very lethargic Abdomen soft, nontender bowel sounds active Neuro, difficult to assess, patient does move all limbs,/very lethargic, responding briefly to voice Assessment and plan Severe sepsis with septic shock: Patient meets criteria for severe sepsis, admitted with hypotension/ tachycardia, fever leukocytosis with elevated lactic acid level, acute renal failure Obstructed 4 mm ureteric stone with pyelonephritis Patient was given IV Zosyn in the ER, will continue with IV cefepime CT abdomen pelvis noncontrast This is a 70-year-old female with past medical history of hyperlipidemia/hypertension, presented with confusion and altered mental status as generalized weakness, Found to be in severe sepsis with septic shock, source of infection possible UTI/pyelonephritis Patient is very lethargic in the ER information obtained mostly from patient's present at bedside Per , in the evening patient was found to be very weak and lethargic, found her on the chair, senior living between falling down to floor, He tried to help the patient get up on the chair, Does not recall whether patient had any fever or chills This morning as her condition worsened brought to SBP was 61/48 And received IV fluid bolus 2 L, Victor catheter was inserted, no urine output noted Marked leukocytosis 27K with left shift, thrombocytopenia Elevated lactic acid of 4, spontaneous coagulopathy with INR 1.4, on no anticoagulation Renal failure with creatinine more than 3 Per prior lab in clinic baseline creatinine 0.6 Patient remains lethargic, opens eyes briefly, and moaning with pain" states her back hurts" Physical exam: General ill-appearing, very lethargic, HEENT very dry oral mucosa Heart: Regular S1 and S2, tachycardia, bilateral +1 edema noted Lungs: No rales or wheeze noted Abdomen: Patient reports of having back pain, could not reproduce flank pain, very lethargic Abdomen soft, nontender bowel sounds active Neuro, difficult to assess, patient does move all limbs,/very lethargic, responding briefly to voice Assessment and plan Severe sepsis with septic shock: Patient meets criteria for severe sepsis, admitted with hypotension/ tachycardia, fever leukocytosis with elevated lactic acid level, acute renal failure Possible source: Obstructed right-sided ureteric stone with pyelonephritis Patient was given IV Zosyn in the ER, will continue with IV cefepime Admit to ICU as patient remains profoundly hypotensive in spite of getting fluid resuscitation Urine and blood culture ordered Discussed with patient's at bedside, okay for mechanical ventilation/CPR/IV pressors,/dialysis if needed CT abdomen pelvis noncontrast 4 mm distal ureteric stone with right-sided hydronephrosis Patient seen in the ER by ICU attending stat urology consult placed, on-call urology aware, patient will be taken to the OR today for emergent ureteric stent placement Lethargy/metabolic encephalopathy: Secondary to severe sepsis, IV fluid resuscitation antibiotics as above Acute renal failure, anuria/possible ATN /due to obstructed ureteric stone CT abdomen pelvis as above/emergent urologic procedure will be done today Continue IV fluids, may need pressor support, 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 Lory Michel MD
--- NOTE | 2020-11-24 13:44 | CT Scan Report ---
ABDOMEN AND PELVIS CT WITHOUT CONTRAST CT DOSE: 1206.15 mGycm HISTORY: Right-sided flank pain. eval for pyelonephritis/renal stone TECHNIQUE: Multiaxial CT images of the abdomen and pelvis were performed without contrast. A dose lo wering technique was utilized adhering to the principles of ALARA. COMPARISON STUDY: None. FINDINGS: There are few small right renal calculi with the largest in the lower pole measuring 5 mm. Mild bilateral perinephric edema/fat stranding, right greater the left. There appear to be bilateral peripelvic cysts. There is also a 1.5 cm right exophytic hypodense lesion within the right kidney lik roberta representing a cyst. There is mild to moderate right-sided hydroureteronephrosis secondary to an obstructing 4 mm stone within the distal right ureter best seen on image 388. This is immediately pro ximal to the right ureterovesical junction. The bladder is decompressed by Victor catheter. No left-si ded hydronephrosis. Calcified granuloma seen within the base of the left lower lobe. There are patchy densities within the lungs posteriorly. This favors atelectasis/dependent change. No pneumoperitoneu m. No pneumatosis. No suspicious lytic or blastic osseous lesions. There is a small fat-containing um bilical hernia. The uterus and bilateral adnexa are within normal limits. No pelvic free fluid. Subop timal evaluation for bowel pathology due to the lack of intravenous and oral contrast. However, there is no definite bowel wall thickening or obstruction. Normal appendix. Layering density within the ga llbladder favors small stones. The unenhanced liver, spleen, and pancreas are unremarkable. No retrop eritoneal lymphadenopathy. Normal right adrenal gland. There is nodular thickening of the left adrena l gland. IMPRESSION: 1. A 4 mm obstructing stone within the distal right ureter resulting in mild to moderate right-sided hydronephrosis. 2. Right-sided nephrolithiasis. 3. No definite bowel wall thickening or obstruction. 4. Consolidation within the lungs posteriorly favors atelectasis. A pneumonia could also have a simil ar appearance. 4. Possible cholelithiasis. No gallbladder wall thickening. 6. The bladder is decompressed by Victor catheter. ACT 112: Negative or not required by law. Electronically signed by: Brad Langford M.D. 11/24/2020 1:43 PM
[2020-11-24 13:54] LABS: Base Excess ABG -7.3 mEq/L (-9-1.8); HCO3 ABG 18 mmol/L (19-24); Oxygen Saturation ABG 96.5 % (90-95); PCO2 ABG 33 mmHg (35-46); PO2 ABG 86 mmHg (80-95); pH ABG 7.34 (7.35-7.45)
[2020-11-24] MEDS ORDERED: SODIUM CHLORIDE 0.9% 1000ML 500 ML IV ONE (13:57)
[2020-11-24] MEDS ORDERED: STAT IV Infusion **Titration per Protocol STA ×2 (13:58→19:08)
[2020-11-24] MEDS: NOREPINEPHRINE/D5W 8 MG/508 ML BAG IV SCH ×2 (14:09→23:34)
[2020-11-24] MEDS ORDERED: KETAMINE 50 MG/5 ML SYRINGE ONE (14:14)
[2020-11-24] MEDS ORDERED: MIDAZOLAM HCL 1 MG/ML 2ML VIAL ONE (14:14)
[2020-11-24 14:15] LABS: Allen Test Pos (Pos)
--- NOTE | 2020-11-24 14:18 | Urology Consultation ---
Date of Consultation November 24, 2020 Assessment & Plan (1) Sepsis: (2) Right ureteral stone: 70 year-old female patient admitted with sepsis, UTI, and obstructing 4 mm obstructing right distal ureteral calculus. -Patient febrile. -Acutely ill. -Labs reviewed - wbc and creatinine elevated. -Urine and blood culture spending. -Continue antibiotic therapy. -Keep NPO Findings reviewed with Dr. Kowalski. Given her sepsis, UTI in the context of an obstructing 4 mm right distal ureteral stone, will proceed with OR for cystoscopy, right retrograde pyelogram and right stent placement. Risks and benefits to be reviewed with patient and by Dr. Kowalski. OR notified. Preoperative CXR and EKG in chart. Patient received IV Zosyn in ER. History of Present Illness Reason for Consultation: Septic stone History of Present Illness 70 year-old female patient, presented to the emergency room with complaints of weakness, lethargy, mental status changes that started yesterday. Urology consulted due to obstructing ureteral stone and sepsis. Chart review: Febrile at 38.0 Hypotensive with most recent blood pressure 73/44 Tachycardic Wbc 27.92 Creatinine 3.88 Hgb 12.1 Urinalysis +3 leukocytes, >30 wbc, >30 rbc 4+ bacteria Blood cultures pending. Urine culture pending. Imaging - CT abd/pelvis IMPRESSION: 1. A 4 mm obstructing stone within the distal right ureter resulting in mild to moderate right-sided hydronephrosis. 2. Right-sided nephrolithiasis. 3. No definite bowel wall thickening or obstruction. 4. Consolidation within the lungs posteriorly favors atelectasis. A pneumonia could also have a similar appearance. 4. Possible cholelithiasis. No gallbladder wall thickening. 6. The bladder is decompressed by Victor catheter. At time of assessment, patient undergoing central line placement. Allergies Allergy/AdvReac Type Severity Reaction Status Date / Time No Known Allergies Allergy Unverified 11/24/20 13:15 Home Medications Medication Instructions Recorded Confirmed Type alendronate 70 mg PO WK 11/24/20 11/24/20 History amlodipine 5 mg PO DAILY 11/24/20 11/24/20 History atorvastatin 20 mg PO DAILY 11/24/20 11/24/20 History carbidopa-levodopa 1 tab PO TID 11/24/20 11/24/20 History Patient History Medical History HTN (hypertension) Hyperlipidemia Osteoporosis Parkinsons Surgical History History of tubal ligation Family History Father Lung cancer Stroke Mother Hypertension Social History Smoking Status: Never smoker Hx Alcohol Use: No Hx Substance Use: No Preferred Language: Polish marital status: Current Living Situation: Spouse Feels Safe at Home: Yes Review of Systems Review of Systems: Unobtainable due to cognitive status Results & Data ([facility]) Vital Signs (Past 12 Hours) Vital Signs Temp Pulse Resp BP Pulse Ox 11/24/20 13:50 20 73/44 L 96 11/24/20 13:40 20 78/49 L 97 11/24/20 13:30 20 74/44 L 96 11/24/20 13:10 92 H 21 77/45 L 95 11/24/20 13:02 92 H 17 95/56 L 95 11/24/20 12:51 93 H 18 77/48 L 96 11/24/20 12:41 91 H 17 81/46 L 93 11/24/20 12:33 90 16 80/46 L 98 11/24/20 12:30 91 H 18 61/48 L 98 11/24/20 12:21 91 H 16 78/51 L 94 11/24/20 12:20 90 16 97 11/24/20 12:11 88 16 99 11/24/20 12:10 88 17 71/42 L 99 11/24/20 12:01 87 16 99 11/24/20 12:00 86 16 74/38 L 99 11/24/20 11:51 91 H 17 98 11/24/20 11:50 91 H 18 72/53 L 98 11/24/20 11:40 90 19 67/36 L 98 11/24/20 11:34 91 H 17 75/40 L 98 11/24/20 11:31 91 H 22 78/39 L 99 11/24/20 11:13 95 11/24/20 11:12 95 11/24/20 11:00 96 H 17 70/41 L 95 11/24/20 10:55 96 H 18 65/42 L 96 11/24/20 10:31 95 H 18 71/42 L 97 11/24/20 10:30 38.0 C H 98 H 22 146/109 H 87 L 11/24/20 10:28 98 H 15 146/109 H 91 PG Care Time/CCT Total # of Minutes Spent Total Time Spent with Patient: Total time spent is greater than 50% in coordination of care (as documented) at patient's floor/unit and/or counseling patient: Coding Diagnoses Sepsis A41.9 Right ureteral stone N20.1
--- NOTE | 2020-11-24 14:23 | Urology Consultation ---
Date of Consultation November 24, 2020 Assessment & Plan (1) Right ureteral stone: (2) Sepsis: Acutely ill with believe source believed to be an obstructing right ureteral calculus and urosepsis Currently under the management of the critical care team I believe intervention is appropriate We will plan for emergent cystoscopy and bilateral ureteral stent placement with subsequent supportive care with rehydration/resuscitation and help to see improvement in her hemodynamic status although currently her prognosis is quite guarded History of Present Illness History of Present Illness 70-year-old female admitted to the emergency room acutely ill with work-up revealing an obstructing right distal ureteral calculus in setting of urosepsis Temperature 38 Celsius, hypotensive, systolic blood pressure 76, elevated lacta te, acute renal failure with a creatinine of 3.88 Imaging showing perinephric stranding and right hydronephrosis; mild dilation of the left renal pelvis - but perhaps most concerning has been her lack of UoP since garcia placement - uncertain duration of hypotensive episode Called for emergent intervention prior to admission to the ICU, already consulted on by the ICU/critical care team Allergies Allergy/AdvReac Type Severity Reaction Status Date / Time No Known Allergies Allergy Unverified 11/24/20 13:15 Home Medications Medication Instructions Recorded Confirmed Type alendronate 70 mg PO WK 11/24/20 11/24/20 History amlodipine 5 mg PO DAILY 11/24/20 11/24/20 History atorvastatin 20 mg PO DAILY 11/24/20 11/24/20 History carbidopa-levodopa 1 tab PO TID 11/24/20 11/24/20 History Patient History Medical History HTN (hypertension) Hyperlipidemia Osteoporosis Parkinsons Surgical History History of tubal ligation Family History Father Lung cancer Stroke Mother Hypertension Social History Smoking Status: Never smoker Hx Alcohol Use: No Hx Substance Use: No Preferred Language: Qatari marital status: Current Living Situation: Spouse Feels Safe at Home: Yes Review of Systems Review of Systems: Limited review of systems secondary to acute illness Physical Exam Constitutional: + acute distress and + ill appearing Neck: neck nontender Respiratory: normal respiratory effort; no respiratory distress and does not use accessory muscles Cardiovascular: Rate/Rhythm: + tachycardic Vessels: radial pulses present Extremities: no edema Gastrointestinal (Abdomen): Inspection/Auscultation: abdomen normal to inspection Percussion/Palpation: abdomen soft; abdomen nontender and no guarding Musculoskeletal: Head/Neck/Chest: normocephalic and head atraumatic Extremities: extremities normal to inspection Skin: no rashes and no lesions Trauma: no evidence of skin trauma Neurologic: awake; not obtunded Speech / Cognition: normal speech Motor/Sensory: no tremor Psychiatric: Orientation: alert and oriented x 3 Lymphatic: no lymphadenopathy Results & Data ([facility]) Vital Signs (Past 12 Hours) Vital Signs Temp Pulse Resp BP Pulse Ox 11/24/20 14:10 76/47 L 98 11/24/20 14:00 95/80 L 97 11/24/20 13:59 76/44 L 97 11/24/20 13:50 20 73/44 L 96 11/24/20 13:40 20 78/49 L 97 11/24/20 13:30 20 74/44 L 96 11/24/20 13:10 92 H 21 77/45 L 95 11/24/20 13:02 92 H 17 95/56 L 95 11/24/20 12:51 93 H 18 77/48 L 96 11/24/20 12:41 91 H 17 81/46 L 93 11/24/20 12:33 90 16 80/46 L 98 11/24/20 12:30 91 H 18 61/48 L 98 11/24/20 12:21 91 H 16 78/51 L 94 11/24/20 12:20 90 16 97 11/24/20 12:11 88 16 99 11/24/20 12:10 88 17 71/42 L 99 11/24/20 12:01 87 16 99 11/24/20 12:00 86 16 74/38 L 99 11/24/20 11:51 91 H 17 98 11/24/20 11:50 91 H 18 72/53 L 98 11/24/20 11:40 90 19 67/36 L 98 11/24/20 11:34 91 H 17 75/40 L 98 11/24/20 11:31 91 H 22 78/39 L 99 11/24/20 11:13 95 11/24/20 11:12 95 11/24/20 11:00 96 H 17 70/41 L 95 11/24/20 10:55 96 H 18 65/42 L 96 11/24/20 10:31 95 H 18 71/42 L 97 11/24/20 10:30 38.0 C H 98 H 22 146/109 H 87 L 11/24/20 10:28 98 H 15 146/109 H 91 PG Care Time/CCT Total # of Minutes Spent Total Time Spent with Patient: Total time spent is greater than 50% in coordination of care (as documented) at patient's floor/unit and/or counseling patient: Coding Level of Care Code 01140 Inpt Consult Level 5 Diagnoses Right ureteral stone N20.1 Sepsis A41.9
--- NOTE | 2020-11-24 14:39 | Anesthesiology Consultation ---
Date of Service November 24, 2020 The patient is a 70 y/o female who presented to the ER with sepsis likely from an obstructing kidney stone. Dr. Kowalski would like to take her to the OR for cystoscopy/stent placement. The patient was in her normal state of health yesterday morning and went to a hair appointment. Yesterday evening her noted that she was not feeling well. She developed rapid breathing overnight. This morning she was too weak to get up out of a chair so she was brought to the ER. PMH includes obesity, HTN, dyslipidemia, and Parkinson's. In the ER, she has been hypotensive and found to have elevated troponin as well as creatinine. Dr. Mueller placed a left subclavian central line and a left radial arterial line. The patient is arousable on command and able to answer questions but appears weak and gets easily confused. She last ate yesterday. Her was able to answer questions and sign consent. Assessment & Plan (1) Encounter for pre-operative examination: Chart Review Chart Review: Acceptable Risk for Surgery (emergency) and Patient NOT seen in Pre Admission Testing Consults Requested none ASA ASA4E History Surgery Operation Date: 11/24/20 07:00 Proposed Procedures p Cystoscopy, Right Retrograde, Right Stent Insertion - Edouard Kowalski MD Height/Weight Height: 5 ft 5 in Weight: 98.3 kg Allergies Allergy/AdvReac Type Severity Reaction Status Date / Time No Known Allergies Allergy Unverified 11/24/20 13:15 Medications Home Medications Medication Instructions Recorded Confirmed Last Taken alendronate 70 mg PO WK 11/24/20 11/24/20 Unknown amlodipine 5 mg PO DAILY 11/24/20 11/24/20 11/23/20 atorvastatin 20 mg PO DAILY 11/24/20 11/24/20 11/23/20 carbidopa-levodopa 1 tab PO TID 11/24/20 11/24/20 11/23/20 Active Medications Generic Name Dose Route Start Last Admin Trade Name Freq PRN Reason Stop Dose Admin Norepinephrine Bitartrate 8 mg in 508 mls @ 18.726 mls/hr 11/24/20 14:00 11/24/20 14:35 Levophed/D5w IV 12/24/20 13:59 0.07 mcg/kg/min .Q24H CHRISTIAN 26.2 mls/hr Titration Protocol 0.05 MCG/KG/MIN Past Medical History Medical History (Updated 11/24/20 @ 14:39 by Brad Bennett MD) MIKE (acute kidney injury) Elevated troponin HTN (hypertension) Hyperlipidemia Osteoporosis Parkinsons Sepsis UTI (urinary tract infection) Past Family History Family History Father Lung cancer Stroke Mother Hypertension Past Surgical History Surgical History History of tubal ligation Social History Smoking Status: Never smoker Hx Alcohol Use: No Hx Substance Use: No Physical Exam Vital Signs Last Vital Signs Temp 38.0 C H 11/24/20 10:30 Pulse 101 H 11/24/20 14:30 Resp 17 11/24/20 14:30 BP 109/53 L 11/24/20 14:30 Pulse Ox 96 11/24/20 14:30 Testing Laboratory Results 11/24/20 11:17 11/24/20 11:17 PT 13.6 Seconds (9.0-12.0) H 11/24/20 11:17 INR 1.4 (0.9-1.1) H 11/24/20 11:17 APTT 44.8 Seconds (21.0-31.0) H 11/24/20 11:17 Urine Color [place] 11/24/20 10:55 Urine Appearance Turbid (Clear) A 11/24/20 10:55 Urine pH 7.0 (4.5-7.5) 11/24/20 10:55 Ur Specific [place] 1.015 (1.000-1.030) 11/24/20 10:55 Urine Protein 2+ (Negative) H 11/24/20 10:55 Urine Glucose (UA) Negative (Negative) 11/24/20 10:55 Urine Ketones Trace (Negative) H 11/24/20 10:55 Urine Nitrite Negative (Negative) 11/24/20 10:55 Ur Leukocyte Esterase 3+ (Negative) H 11/24/20 10:55 Urine WBC (Auto) >30 /hpf (0-5) H 11/24/20 10:55 Urine RBC (Auto) >30 /hpf (0-4) H 11/24/20 10:55 U Hyaline Cast (Auto) 10-30 /lpf (0-5) H 11/24/20 10:55 U Epithel Cells (Auto) >30 /lpf (0-5) H 11/24/20 10:55 Urine Bacteria (Auto) 4+ (Negative) H 11/24/20 10:55 Electrocardiogram Date: 11/24/20 Findings: + NSR @ (96) and + NSST changes Chest X-Ray Date: 11/24/20 XR chest 1V portable CLINICAL HISTORY: SEPSIS COMPARISON STUDY: No previous studies for comparison. FINDINGS: Incidental note is made of deformity of the left humeral head with severe osteoarthritis. Lung volumes are diminished. There may be a trace left pleural effusion. There is mild left basilar opacity. Cardiomegaly is noted. There is vascular congestion. Patient is rotated. Calcified granuloma within the left lower lung is noted. IMPRESSION: 1. Suspected trace left pleural effusion with mild left basilar opacity that favors atelectasis. 2. Cardiomegaly. Pulmonary vascular congestion. ACT 112: Negative or not required by law. Electronically signed by: Prasanna De Santiago M.D. 11/24/2020 11:22 AM Dictated: 11/24/20 1120Transcribed: 11/24/20 1120 Other Testing MEN AND PELVIS CT WITHOUT CONTRAST CT DOSE: 1206.15 mGycm HISTORY: Right-sided flank pain. eval for pyelonephritis/renal stone TECHNIQUE: Multiaxial CT images of the abdomen and pelvis were performed without contrast. A dose lowering technique was utilized adhering to the principles of ALARA. COMPARISON STUDY: None. FINDINGS: There are few small right renal calculi with the largest in the lower pole measuring 5 mm. Mild bilateral perinephric edema/fat stranding, right greater the left. There appear to be bilateral peripelvic cysts. There is also a 1.5 cm right exophytic hypodense lesion within the right kidney likely representing a cyst. There is mild to moderate right-sided hydroureteronephrosis secondary to an obstructing 4 mm stone within the distal right ureter best seen on image 388. This is immediately proximal to the right ureterovesical junction. The bladder is decompressed by Victor catheter. No left-sided hydronephrosis. Calcified granuloma seen within the base of the left lower lobe. There are patchy densities within the lungs posteriorly. This favors atelectasis/dependent change. No pneumoperitoneum. No pneumatosis. No suspicious lytic or blastic osseous lesions. There is a small fat-containing umbilical hernia. The uterus and bilateral adnexa are within normal limits. No pelvic free fluid. Suboptimal evaluation for bowel pathology due to the lack of intravenous and oral contrast. However, there is no definite bowel wall thickening or obstruction. Normal appendix. Layering density within the gallbladder favors small stones. The unenhanced liver, spleen, and pancreas are unremarkable. No retroperitoneal lymphadenopathy. Normal right adrenal gland. There is nodular thickening of the left adrenal gland. IMPRESSION: 1. A 4 mm obstructing stone within the distal right ureter resulting in mild to moderate right-sided hydronephrosis. 2. Right-sided nephrolithiasis. 3. No definite bowel wall thickening or obstruction. 4. Consolidation within the lungs posteriorly favors atelectasis. A pneumonia c ould also have a similar appearance. 4. Possible cholelithiasis. No gallbladder wall thickening. 6. The bladder is decompressed by Victor catheter. ACT 112: Negative or not required by law. Electronically signed by: Brad Langford M.D. 11/24/2020 1:43 PM Dictated: 11/24/20 1338Transcribed: 11/24/20 1338
--- NOTE | 2020-11-24 14:44 | Procedure Note ---
Procedure Note Date of Service November 24, 2020 CENTRAL LINE PROCEDURE NOTE: Procedure: Central Line Placement Provider: Paco Mueller MD Indication: Central Drug Administration, Poor Venous Access, Multiple Lab Draws Necessary, etc. Anesthesia: 5 mL idocaine 1% Site: Left subclavian Verbal consent obtained from the patient. Due to her critical illness, written consent was not available. Risks and benefits were discussed with the patient. A time-out was completed verifying correct patient, procedure, site, positioning, and implants(s) or special equipment if applicable. Patients left clavicular fossa was cleansed and draped in the typical sterile fashion using Chloraprep. The superficial tissue was anesthetized using 5 mL of 1% lidocaine without epinephrine. After adequate anesthetization was achieved, the left subclavian vein was cannulated using an introducer needle on a syringe. Good venous blood return was maintained prior to removal of syringe from introducer needle. Using Seldinger Technique, a guide wire was advanced through the introducer needle without resistance. The introducer needle was removed. A small incision was made in penetrating fashion at the guide wire insertion site utilizing an 11 blade scalpel. The dilator was advanced to the vessel without resistance. The dilator was exchanged for the triple lumen catheter which was advanced into the vessel without resistance. The guide wire was removed intact from the catheter without issue. Claves were placed on each catheter tip with confirmation of good blood flow from each lumen. Each port was easily flushed with sterile saline. The catheter was placed at 22 cm and sutured in place. BioPatch was applied to the catheter and a sterile Tegaderm dressing was applied over the catheter with careful attention to sterility. Patient tolerated procedure well. No immediate complications were met. Post procedure x-ray was completed, placement was appropriate and no pneumothorax was noted. Estimated blood loss, less than 10 mL Coding CPT Codes Tubes, Drains, and Vasc Access - Tubes, Drains, and Vasc Access: [id number] Place catheter in vein superior or inferior vena cava ([id number]) [facility] [place] Codes (Charges) Tubes, Drains, and Vasc Access Procedure 1: Tubes, Drains, and Vasc Access: [id number] Place catheter in vein superior or inferior vena cava
--- NOTE | 2020-11-24 14:45 | Procedure Note ---
Procedure Note Date of Service November 24, 2020 ARTERIAL LINE PROCEDURE NOTE: Procedure: Arterial Line Placement Provider: Paco Mueller MD Indication: Monitoring on Pressors Anesthesia: None Verbal consent was obtained from the patient. Due to critical illness, written consent was not feasible. Indication, risks, and benefits were explained at length. A time-out was completed verifying correct patient, procedure, site, positioning, and implant(s) or special equipment if applicable. Allens test was performed to ensure adequate perfusion. Patients left wrist was prepped and draped in the usual sterile fashion. Ultrasound guidance was used to aid needle placement. A 20g Arrow arterial line was introduced into the left radial artery. Catheter was threaded, and the needle was removed with appropriate blood return. Good waveform was observed. The patient tolerated the procedure well. Blood Loss: Minimal Complications: None Coding CPT Codes Tubes, Drains, and Vasc Access - Tubes, Drains, and Vasc Access: [id number] Insertion Catheter, Artery ([id number]) [facility] [place] Procedure Codes (Charges) Tubes, Drains, and Vasc Access Procedure 1: Tubes, Drains, and Vasc Access: [id number] Insertion Catheter, Artery
--- NOTE | 2020-11-24 14:46 | XRay Report ---
XR chest 1V portable CLINICAL HISTORY: confirm line placement COMPARISON STUDY: Chest radiograph performed earlier today. FINDINGS: Tip of the left subclavian central line is within the SVC. No pneumothorax is identified. C ardiomegaly is unchanged. Interstitial thickening is unchanged. There may be a trace left pleural eff usion. IMPRESSION: 1. No pneumothorax following placement of a left subclavian central line. 2. Interstitial thickening which favors mild pulmonary edema. Trace left pleural effusion. ACT 112: Negative or not required by law. Electronically signed by: Prasanna De Santiago M.D. 11/24/2020 2:44 PM
[2020-11-24] MEDS ORDERED: fentaNYL citrate 100 MCG/2 ML VIAL ONE (14:53)
--- NOTE | 2020-11-24 14:53 | Critical Care Consultation ---
Date of Consultation November 24, 2020 Assessment & Plan (1) Sepsis: (2) Hydronephrosis concurrent with and due to calculi of kidney and ureter: (3) MIKE (acute kidney injury): (4) Lactic acidosis: (5) Coagulopathy: Impression: 70-year-old female with Parkinson's hypertension hyperlipidemia now with pyelonephritis, hydronephrosis, acute renal failure, and a distal right obstructing nephrolithiasis. Patient has been seen in consultation by anesthesia and urology and is going to the OR for stent placement. Recommendations: 1. Neurologic: The patient appears to be mildly encephalopathic likely due to her underlying metabolic issues. She does have a history of Parkinson's disease. We will continue to follow as we correct her metabolic abnormalities. Hopefully this will result in improvement in her mental status. May consider restarting her parkinsonian medications postoperatively. Pain control as needed postoperatively. 2. Cardiovascular: Septic shock: Her lactate is mildly improving with fluid resuscitation. We will get source control. Check random cortisol for relative adrenal insufficiency. She appears adequately fluid resuscitated. May consider monitoring CVP if there are questions about additional fluid responsiveness. Hold her antihypertensives for now. 3. Pulmonary: No current issues. She is on a small amount of supplemental oxygen. Base of the lungs on CT scan did not demonstrate any acute abnormality. Will need pulmonary toilet postoperatively. 4. Renal: Bilateral hydronephrosis right greater than left. Discussed with Dr. Kowalski at bedside. You place a stent on the right and likely a stent on the left to ensure that we have adequately addressed all potential obstructive uropathy. Nephrology consultation has been obtained. Her acid-base status appears to be consistent with lactic acidosis and hopefully will improve with treatment of her sepsis. May need additional bicarb depending on her clinical response. Await formal nephrology consultation. Electrolytes are currently adequate. 5. ID: Pyelonephritis. Continue Zosyn dosed by pharmacy for now. Await cultures. Will follow pro calcitonin white blood cell count. 6. GI: N.p.o. for going to surgery. Will reassess diet postoperatively. 7. Endocrine: Glycemic control per ICU protocol. Await random cortisol. 8. Heme-onc: Marked leukocytosis secondary to sepsis. Hemoglobin hematocrit are currently stable. Platelet count is low at 92 likely secondary to sepsis. We will continue to follow at this point time. No indication for transfusions from my standpoint. Patient is critically ill at this point in time. Case was reviewed with the admitting hospitalist as well as with patient and her at the bedside. Questions were answered to the best of my ability. 50 minutes critical care time exclusive of procedures to this point. History of Present Illness History of Present Illness Asked by hospitalist to assist in critical care management of this patient with acute renal failure, pyelonephritis, and an infected obstructing ureteral stone. History is obtained from review of the EMR and discussion with the patient. Patient is a 70-year-old female with a history of Parkinson's with mild cognitive impairment hypertension hyperlipidemia obesity who was brought to the emergency room with weakness lethargy and mental status changes. In the ER the patient was noted to be febrile and hypotensive with blood pressures in the 70 systolic. Her white count was 27,000. She received IV fluids and was initiated on Zosyn. Her blood pressure failed to improve and she was persistently in the 70-80 systolic range with maps in the 40s to 50s. She was being admitted by the medicine service and I was contacted to assist in evaluation. I presented to the emergency room to evaluate the patient. She got a CT of the abdomen. This demonstrated hydronephrosis on the right with an obstructing distal ureteral stone which I reviewed with radiology. I discussed with the hospitalist and we consulted urology urgently. Dr. Kowalski presented to the bedside and plans on taking her to the OR for stent placement. Given her persistent hypotension and septic shock, I placed subclavian central line and an arterial line in the ER. Discussed with anesthesia. Allergies Allergy/AdvReac Type Severity Reaction Status Date / Time No Known Allergies Allergy Unverified 11/24/20 13:15 Home Medications Medication Instructions Recorded Confirmed Type alendronate 70 mg PO WK 11/24/20 11/24/20 History amlodipine 5 mg PO DAILY 11/24/20 11/24/20 History atorvastatin 20 mg PO DAILY 11/24/20 11/24/20 History carbidopa-levodopa 1 tab PO TID 11/24/20 11/24/20 History Patient History Medical History (Updated 11/24/20 @ 14:49 by Paco Mueller MD) MIKE (acute kidney injury) Elevated troponin HTN (hypertension) Hyperlipidemia Osteoporosis Parkinsons Sepsis UTI (urinary tract infection) Surgical History History of tubal ligation Family History Father Lung cancer Stroke Mother Hypertension Social History Smoking Status: Never smoker Hx Alcohol Use: No Hx Substance Use: No Preferred Language: Kazakh marital status: Current Living Situation: Spouse Feels Safe at Home: Yes Review of Systems Review of Systems: Please refer to admission H&P from the hospitalist. No additions or deletions Results & Data Results & Data ([facility]) Vital Signs (Past 12 Hours) Vital Signs Temp Pulse Resp BP Pulse Ox 11/24/20 14:30 101 H 17 109/53 L 96 11/24/20 14:20 17 103/62 98 11/24/20 14:10 76/47 L 98 11/24/20 14:00 95/80 L 97 11/24/20 13:59 76/44 L 97 11/24/20 13:50 20 73/44 L 96 11/24/20 13:40 20 78/49 L 97 11/24/20 13:30 20 74/44 L 96 11/24/20 13:10 92 H 21 77/45 L 95 11/24/20 13:02 92 H 17 95/56 L 95 11/24/20 12:51 93 H 18 77/48 L 96 11/24/20 12:41 91 H 17 81/46 L 93 11/24/20 12:33 90 16 80/46 L 98 11/24/20 12:30 91 H 18 61/48 L 98 11/24/20 12:21 91 H 16 78/51 L 94 11/24/20 12:20 90 16 97 11/24/20 12:11 88 16 99 11/24/20 12:10 88 17 71/42 L 99 11/24/20 12:01 87 16 99 11/24/20 12:00 86 16 74/38 L 99 11/24/20 11:51 91 H 17 98 11/24/20 11:50 91 H 18 72/53 L 98 11/24/20 11:40 90 19 67/36 L 98 11/24/20 11:34 91 H 17 75/40 L 98 11/24/20 11:31 91 H 22 78/39 L 99 11/24/20 11:13 95 11/24/20 11:12 95 11/24/20 11:00 96 H 17 70/41 L 95 11/24/20 10:55 96 H 18 65/42 L 96 11/24/20 10:31 95 H 18 71/42 L 97 11/24/20 10:30 38.0 C H 98 H 22 146/109 H 87 L 11/24/20 10:28 98 H 15 146/109 H 91 Critical Care Results & Data Vital Signs (Past 12 Hours) Vital Signs Temp Pulse Resp BP Pulse Ox 11/24/20 14:30 101 H 17 109/53 L 96 11/24/20 14:20 17 103/62 98 11/24/20 14:10 76/47 L 98 11/24/20 14:00 95/80 L 97 11/24/20 13:59 76/44 L 97 11/24/20 13:50 20 73/44 L 96 11/24/20 13:40 20 78/49 L 97 11/24/20 13:30 20 74/44 L 96 11/24/20 13:10 92 H 21 77/45 L 95 11/24/20 13:02 92 H 17 95/56 L 95 11/24/20 12:51 93 H 18 77/48 L 96 11/24/20 12:41 91 H 17 81/46 L 93 11/24/20 12:33 90 16 80/46 L 98 11/24/20 12:30 91 H 18 61/48 L 98 11/24/20 12:21 91 H 16 78/51 L 94 11/24/20 12:20 90 16 97 11/24/20 12:11 88 16 99 11/24/20 12:10 88 17 71/42 L 99 11/24/20 12:01 87 16 99 11/24/20 12:00 86 16 74/38 L 99 11/24/20 11:51 91 H 17 98 11/24/20 11:50 91 H 18 72/53 L 98 11/24/20 11:40 90 19 67/36 L 98 11/24/20 11:34 91 H 17 75/40 L 98 11/24/20 11:31 91 H 22 78/39 L 99 11/24/20 11:13 95 11/24/20 11:12 95 11/24/20 11:00 96 H 17 70/41 L 95 11/24/20 10:55 96 H 18 65/42 L 96 11/24/20 10:31 95 H 18 71/42 L 97 11/24/20 10:30 38.0 C H 98 H 22 146/109 H 87 L 11/24/20 10:28 98 H 15 146/109 H 91 Lab & Micro Results (Past 24 Hours) RBC 4.26 M/uL (4.2-5.4) 11/24/20 WBC 27.92 K/uL (4.8-10.8) H 11/24/20 Hgb 12.1 g/dL (12.0-16.0) 11/24/20 Hct 36.5 % (37-47) L 11/24/20 MCV 85.7 fL (80-100) 11/24/20 MCH 28.4 pg (25-34) 11/24/20 MCHC 33.2 g/dL (32-36) 11/24/20 RDW Standard Deviation 49.7 fL (36.4-46.3) H 11/24/20 RDW Coefficient of Variation 15.8 % (11.5-14.5) H 11/24/20 Plt Count 92 K/uL (130-400) L 11/24/20 MPV 11.1 fL (7.4-10.4) H 11/24/20 Neutrophils (%) (Auto) 91.9 % 11/24/20 Lymphocytes (%) (Auto) 2.6 % 11/24/20 Monocytes # (Auto) 0.86 K/uL (0.11-0.59) H 11/24/20 Eosinophils # (Auto) 0.01 K/uL (0-0.5) 11/24/20 Immature Granulocyte % (Auto) 2.3 % 11/24/20 Neutrophils # (Auto) 25.66 K/uL (1.4-6.5) H 11/24/20 Lymphocytes # (Auto) 0.73 K/uL (1.2-3.4) L 11/24/20 Monocytes # (Auto) 0.86 K/uL (0.11-0.59) H 11/24/20 Eosinophils # (Auto) 0.01 K/uL (0-0.5) 11/24/20 Basophils # (Auto) 0.02 K/uL (0-0.2) 11/24/20 Immature Granulocyte # (Auto) 0.64 K/uL (0.00-0.02) H 11/24/20 Toxic Vacuolation 2+ 11/24/20 Na 141 mmol/L (136-145) 11/24/20 K 3.3 mmol/L (3.5-5.1) L 11/24/20 Cl 108 mmol/L (98-107) H 11/24/20 CO2 21 mmol/L (21-32) 11/24/20 Anion Gap 13.0 (3-11) H 11/24/20 BUN 47 mg/dl (7-18) H 11/24/20 Creatinine 3.88 mg/dl (0.6-1.2) H 11/24/20 Estimated GFR ( Amer) 12.7 ml/min 11/24/20 Estimated GFR (Non-Af Amer) 10.9 ml/min 11/24/20 BUN/Creatinine Ratio 12.1 (10-20) 11/24/20 Glu 80 mg/dl (70-99) 11/24/20 Ca 8.1 mg/dl (8.5-10.1) L 11/24/20 Total Bilirubin 1.0 mg/dl (0.2-1) 11/24/20 AST 131 U/L (15-37) H 11/24/20 ALT 67 U/L (12-78) 11/24/20 Alkaline Phosphatase 98 U/L (45-117) 11/24/20 TP 5.8 gm/dl (6.4-8.2) L 11/24/20 Albumin 2.7 gm/dl (3.4-5.0) L 11/24/20 Globulin 3.1 gm/dl (2.5-4.0) 11/24/20 Albumin/Globulin Ratio 0.9 (0.9-2) 11/24/20 Mg 1.8 mg/dl (1.8-2.4) 11/24/20 11:17 11/24/20 Calcium Level 8.1 mg/dl (8.5-10.1) L 11/24/20 11:17 11/24/20 Prothromb Time International Ratio 1.4 (0.9-1.1) H 11/24/20 11:17 11/24/20 Blood Gas Barometric Pressure 743.2 mm/Hg 11/24/20 13:40 11/24/20 Arterial Blood pH 7.34 (7.35-7.45) L 11/24/20 13:40 11/24/20 Arterial Blood Partial Pressure CO2 33 mmHg (35-46) L 11/24/20 13:40 11/24/20 Arterial Blood Partial Pressure O2 86 mmHg (80-95) 11/24/20 13:40 11/24/20 Arterial Blood HCO3 18 mmol/L (19-24) L 11/24/20 13:40 11/24/20 Arterial Blood Base Excess -7.3 mEq/L (-9-1.8) 11/24/20 13:40 11/24/20 Arterial Blood Oxygen Saturation 96.5 % (90-95) H 11/24/20 13:40 11/24/20 Blood Gas Oxygen Given 3L 11/24/20 13:40 11/24/20 Marky Test Pos (Pos) 11/24/20 13:40 11/24/20 Blood Gas Barometric Pressure 743.2 mm/Hg 11/24/20 13:40 11/24/20 Diagnostic Findings (Past 24 Hours) Chest X-Ray 11/24/20 10:34 XR chest 1V portable CLINICAL HISTORY: SEPSIS COMPARISON STUDY: No previous studies for comparison. FINDINGS: Incidental note is made of deformity of the left humeral head with severe osteoarthritis. Lung volumes are diminished. There may be a trace left pleural effusion. There is mild left basilar opacity. Cardiomegaly is noted. Th ere is vascular congestion. Patient is rotated. Calcified granuloma within the left lower lung is noted. IMPRESSION: 1. Suspected trace left pleural effusion with mild left basilar opacity that favors atelectasis. 2. Cardiomegaly. Pulmonary vascular congestion. ACT 112: Negative or not required by law. Electronically signed by: Prasanna De Santiago M.D. 11/24/2020 11:22 AM Abdomen/Pelvis CT 11/24/20 12:[address] WITHOUT CONTRAST CT DOSE: 1206.15 mGycm HISTORY: Right-sided flank pain. eval for pyelonephritis/renal stone TECHNIQUE: Multiaxial CT images of the abdomen and pelvis were performed without contrast. A dose lowering technique was utilized adhering to the principles of ALARA. COMPARISON STUDY: None. FINDINGS: There are few small right renal calculi with the largest in the lower pole measuring 5 mm. Mild bilateral perinephric edema/fat stranding, right greater the left. There appear to be bilateral peripelvic cysts. There is also a 1.5 cm right exophytic hypodense lesion within the right kidney likely representing a cyst. There is mild to moderate right-sided hydroureteronephrosis secondary to an obstructing 4 mm stone within the distal right ureter best seen on image 388. This is immediately proximal to the right ureterovesical junction. The bladder is decompressed by Victor catheter. No left-sided hydronephrosis. Calcified granuloma seen within the base of the left lower lobe. There are p atchy densities within the lungs posteriorly. This favors atelectasis/dependent change. No pneumoperitoneum. No pneumatosis. No suspicious lytic or blastic osseous lesions. There is a small fat-containing umbilical hernia. The uterus and bilateral adnexa are within normal limits. No pelvic free fluid. Suboptimal evaluation for bowel pathology due to the lack of intravenous and oral contrast. However, there is no definite bowel wall thickening or obstruction. Normal appendix. Layering density within the gallbladder favors small stones. The unenhanced liver, spleen, and pancreas are unremarkable. No retroperitoneal lymphadenopathy. Normal right adrenal gland. There is nodular thickening of the left adrenal gland. IMPRESSION: 1. A 4 mm obstructing stone within the distal right ureter resulting in mild to moderate right-sided hydronephrosis. 2. Right-sided nephrolithiasis. 3. No definite bowel wall thickening or obstruction. 4. Consolidation within the lungs posteriorly favors atelectasis. A pneumonia could also have a similar appearance. 4. Possible cholelithiasis. No gallbladder wall thickening. 6. The bladder is decompressed by Victor catheter. ACT 112: Negative or not required by law. Electronically signed by: Brad Langford M.D. 11/24/2020 1:43 PM Chest X-Ray 11/24/20 14:15 XR chest 1V portable CLINICAL HISTORY: confirm line placement COMPARISON STUDY: Chest radiograph performed earlier today. FINDINGS: Tip of the left subclavian central line is within the SVC. No pneumothorax is identified. Cardiomegaly is unchanged. Interstitial thickening is unchanged. There may be a trace left pleural effusion. IMPRESSION: 1. No pneumothorax following placement of a left subclavian central line. 2. Interstitial thickening which favors mild pulmonary edema. Trace left pleural effusion. ACT 112: Negative or not required by law. Electronically signed by: Prasanna De Santiago M.D. 11/24/2020 2:44 PM I & O Totals 24 Hours 11/23/20 11/24/20 11/25/20 06:59 06:59 06:59 Intake Total 2728.103 / 2728.103 Balance 2728.103 / 2728.103 Cumulative 11/24/20 07:00 thru 11/24/20 14:43 Intake Total 2728.103 Balance 2728.103 RT Ventilator Mngmt (Last Documented) Ventilator Ordered Settings Respiratory Rate 17 11/24/20 14:30 Ventilator - PT Measurements Respiratory Rate 17 Coding Level of Care Code Critical Care 1st 30-74 mins Diagnoses Sepsis A41.9 Hydronephrosis concurrent with and due to calculi of kidney and ureter N13.2 MIKE (acute kidney injury) N17.9 Lactic acidosis E87.2 Coagulopathy D68.9 Time Spent (min) 50
--- NOTE | 2020-11-24 15:13 | Operative Report ---
PG Post Operative Report Pre & Post Diagnosis Operation Date: 11/24/20 07:00 Pre-Op Diagnosis: Right ureteral stone; anuric, Sepsis Post-Op Diagnosis: Right ureteral stone; anuric; Sepsis I identified the patient and participated in the time-out.: Yes Procedure Operation Date: 11/24/20 07:00 Actual Procedures p Cystoscopy, Bilateral Stent Insertion(Not Applicable) - Edouard Kowalski MD Surgeon Pedro Kowalski MD Automatic Car Wash Attendant none Estimated Blood Loss 0 Findings Consistent with Post-Op Diagnosis Specimens none Description of Procedure Patient was seen and evaluated in the emergency room and taken immediately to the operative suite. She has been receiving empiric antibiotics as well as pressors and aggressive hydration. She received appropriate sedation was placed in dorsal lithotomy position where she was sterilely prepped and draped. I removed a Victor catheter prior to prep and then passed a 22 Niuean cystoscope per urethra. Inspection revealed healthy appearing bladder without any mucosal abnormalities. There was a stone protruding from the right orifice. It was not distal enough to be able to grasp and withdraw, instead I simply placed a 5 Ni[place]an open-ended catheter and sensor wire into the right ureter and advanced the wire to the kidney before placing a 6 Niuean by 24 cm double-J ureteral stent. Of note, there was minimal discharge of urine from this kidney, the urine that was discharged had a concentrated and somewhat bloody appearance. I then turned my attention to the left UO and performed the same procedure. I was able to place a stent without difficulty and again saw minimal amount of urine, with a concentrated, somewhat bloody appearance consistent with renal failure. I then emptied the bladder and placed a new 16 Ni[place]an Victor catheter without difficulty. She was reversed from anesthesia and taken to the ICU in critical condition. I attest to the content of the Intraoperative Record and any orders documented therein. Any exceptions are noted below.
--- NOTE | 2020-11-24 15:16 | Fluoroscopy Report ---
FL KUB HISTORY: 70 years-old Female CYSTO status post placement of bilateral ureteral stents. Right uretera l calculus. COMPARISON: CT abdomen and pelvis of same day TECHNIQUE: 2 spot fluoroscopic images of the abdomen were obtained utilizing 9.6 seconds fluoroscopy time FINDINGS: Bilateral ureteral stents have been placed, the proximal portions appearing to be in satisfactory pos itioning. No ureteral calculi identified. The distal stents were not imaged. IMPRESSION: Fluoroscopic assistance as above. ACT 112: Negative or not required by law. The above report was generated using voice recognition software. It may contain grammatical, syntax o r spelling errors. Electronically signed by: Dragan Fuller M.D. 11/24/2020 3:15 PM
[2020-11-24] MEDS ORDERED: ACETAMINOPHEN 1,000 MG/100 ML VIAL IV PRN (15:37)
[2020-11-24] MEDS ORDERED: ICU PROTOCOL FOR HYPERGLYCEMIA PRN (15:37)
[2020-11-24] MEDS ORDERED: PROPOFOL IV EMULSION 10 MG/ML 20 ML VIAL IV ONE (15:39)
--- NOTE | 2020-11-24 15:39 | Anesthesiology Progress Note ---
Date of Service November 24, 2020 Anesthesia Post Procedure Vital Signs Vital Signs: Temp Pulse Resp BP Pulse Ox 11/24/20 14:30 101 H 17 109/53 L 96 11/24/20 14:20 17 103/62 98 11/24/20 14:10 76/47 L 98 11/24/20 14:00 95/80 L 97 11/24/20 13:59 76/44 L 97 11/24/20 13:50 20 73/44 L 96 11/24/20 13:40 20 78/49 L 97 11/24/20 13:30 20 74/44 L 96 11/24/20 13:10 92 H 21 77/45 L 95 11/24/20 13:02 92 H 17 95/56 L 95 11/24/20 12:51 93 H 18 77/48 L 96 11/24/20 12:41 91 H 17 81/46 L 93 11/24/20 12:33 90 16 80/46 L 98 11/24/20 12:30 91 H 18 61/48 L 98 11/24/20 12:21 91 H 16 78/51 L 94 11/24/20 12:20 90 16 97 11/24/20 12:11 88 16 99 11/24/20 12:10 88 17 71/42 L 99 11/24/20 12:01 87 16 99 11/24/20 12:00 86 16 74/38 L 99 11/24/20 11:51 91 H 17 98 11/24/20 11:50 91 H 18 72/53 L 98 11/24/20 11:40 90 19 67/36 L 98 11/24/20 11:34 91 H 17 75/40 L 98 11/24/20 11:31 91 H 22 78/39 L 99 11/24/20 11:13 95 11/24/20 11:12 95 11/24/20 11:00 96 H 17 70/41 L 95 11/24/20 10:55 96 H 18 65/42 L 96 11/24/20 10:31 95 H 18 71/42 L 97 11/24/20 10:30 38.0 C H 98 H 22 146/109 H 87 L 11/24/20 10:28 98 H 15 146/109 H 91 Transfer of Care Handoff Completed per policy Notes Mental Status: alert / awake / arousable Patient Amnestic to Procedure: Yes Nausea / Vomiting: adequately controlled Pain: adequately controlled Airway Patency, RR, SpO2: stable & adequate BP & HR: stable & adequate and see Notes below Hydration State: stable & adequate Anesthetic Complications: no major complications apparent and Pt Satisfied with anesthetic care Notes: The patient was given minimal sedation for the procedure. She has been weened off of norepinephrine and is recovering in the ICU. Sign out was given to Dr. Mueller.
[2020-11-24] MEDS ORDERED: CEFEPIME 2,000 MG in SYRINGE 0 ML IV SCH (16:00)
[2020-11-24] MEDS: NORMOSOL-R 1,000 ML IV SCH ×2 (16:23→21:02)
[2020-11-24] MEDS: PIPERACILLIN/TAZOBACTAM 3.375 GM in DEXTROSE 5% 100 ML IV SCH (16:27)
[2020-11-24 16:50] LABS: BUN Creatinine Ratio 12.8 (10-20); Creatinine Clr Calc Pharmacy 16.8 ml/min; Est GFR (African American) 14.2 ml/min; Est GFR (Non-African American) 12.3 ml/min; Troponin I 0.2 ng/ml (0-0.045)
--- NOTE | 2020-11-24 17:45 | Nephrology Consultation ---
Date of Consultation November 24, 2020 Assessment & Plan (1) MIKE (acute kidney injury): anuric Stage 3 MIKE in the setting of septic shock. mild acidosis but chemistries otherwise acceptable. volume status challenging here but she appears to me to be on the verge of volume overload. Creatinine and potassium both slightly better; hyperchloremic metabolic acidosis should improve with change to Normosol; still with lactic acidosis as well -continue to avoid nephrotoxins -continue q 4-8 hr bmp -no indication for emergent dialysis and not likely to tolerate well hemodynamically but cannot rule out need this admission Continue strict I's and O's Present on Admission?: Yes (2) Septic shock: from presumed pyelonephritis; on zosyn, pressor; had 4L NS now on aggressive Normosol; s/p emergent BL ureteral stents. Lactate climbing after procedure/instrumentation; not unexpected -cont abtx, supportive care, f/u cxs -May need to cut back on IV fluids soon and rely on more pressor to support blood pressure; critical care already documents probably adequate fluid resuscitation -low threshold for TTE if hypotension persists Present on Admission?: Yes History of Present Illness Reason for Consultation: anuria, mike Requesting Physician: Dr Michel Attending Physician: Lory Michel MD History of Present Illness 70 y/o F whom I'm asked to evaluate for anuric MIKE was admitted this afternoon with septic shock from pyelonephritis and BL hydronephrosis R > L. her baseline creatinine as of 05/2020 was 0.8. She presented w/ creatinine 3.9, K, 3.3, WBC 28K, plts 92K, lactate 4.8 and rectal temp 38, SBP in 70s as well as hypoxia. She was brought to the ER to evaluate decline in mental status, worsening generalized weakness, and increasing lethargy. her son is at bedside and provides some of the history > pt lives at home w/ her , drove herself to [employer] yesterday. Her family noticed late yesterday that she was having intermittent periods of altered mental status and lethargy the symptoms worsened by this morning. Note no pain no nausea vomiting no change in urine output or gross hematuria. Patient denies history of prior kidney stones. PMH includes Parkinson's w/ mild cognitive impairment, HTN, HL. Critical care and urology were urgently consulted. She was started on pressors after inadequate response to aggressive hydration (had 3 L normal saline in the ER); also given zosyn. Taken emergently to OR for cystoscopy w/ BL stent placement; noted to have stone protruding from R ureteral orifice and to have minimal urine drainage from either ureter after stenting. Had another liter of crystalloid in the OR. She came back from the PACU not on pressors and actually hypertensive but has since then had increasing Levophed requirement and still with maps in the mid 50s. There is about 150 mL of bloody clot free urine in her Victor bag between 6 PM and 3:30 PM. She can answer simple questions and denies shortness of breath or pain or nausea or any other acute concern. Currently on Levophed and Nor mosol at 200 mL hourly Allergies Allergy/AdvReac Type Severity Reaction Status Date / Time No Known Allergies Allergy Unverified 11/24/20 13:15 Home Medications Medication Instructions Recorded Confirmed Type alendronate 70 mg PO WK 11/24/20 11/24/20 History amlodipine 5 mg PO DAILY 11/24/20 11/24/20 History atorvastatin 20 mg PO DAILY 11/24/20 11/24/20 History carbidopa-levodopa 1 tab PO TID 11/24/20 11/24/20 History Patient History Medical History (Updated 11/24/20 @ 17:41 by Carine Joshua MD, PhD) HTN (hypertension) Hyperlipidemia Osteoporosis Parkinsons Surgical History History of tubal ligation Family History Father Lung cancer Stroke Mother Hypertension Social History Smoking Status: Never smoker Hx Alcohol Use: No Hx Substance Use: No Preferred Language: Greenlandic Communication Ability: sedated Electronic Imager Required: No marital status: Current Living Situation: Spouse Feels Safe at Home: Yes Review of Systems Review of Systems: All systems reviewed & are unremarkable except as noted in HPI & below Physical Exam Constitutional: well developed, + obese, comfortable and + lethargic; no acute distress ENMT: Ears: no external ear abnormality Nose: no external nose abnormality Mouth: + dry oral mucous membranes Neck: no nuchal rigidity Respiratory: normal respiratory effort Auscultation: lungs clear to auscultation bilaterally and + diminished lung sounds Cardiovascular: Rate/Rhythm: + tachycardic Extremities: + edema (2+ pretibial bilaterally) Gastrointestinal (Abdomen): Inspection/Auscultation: normal bowel sounds; abdomen not distended Percussion/Palpation: abdomen soft; abdomen nontender Musculoskeletal: Extremities: + abnormal strength (Generalized weakness) Skin: no rashes, warm and dry Neurologic: Limited but appropriate speech, no tremor Psychiatric: Orientation: oriented to person and oriented to place Genitourinary: Victor with bright red bloody urine Results & Data ([facility]) Vital Signs (Past 12 Hours) Vital Signs Temp Pulse Resp BP Pulse Ox 11/24/20 17:15 112 H 19 94 11/24/20 17:01 110 H 20 94 11/24/20 17:00 106 H 20 93/44 L 95 11/24/20 16:45 104 H 20 94 11/24/20 16:30 104 H 19 95 11/24/20 16:15 101 H 18 95 11/24/20 16:10 103 H 19 107/52 L 95 11/24/20 16:01 106 H 19 95 11/24/20 16:00 105 H 21 119/71 95 11/24/20 15:51 105 H 19 95 11/24/20 15:50 106 H 20 128/62 94 11/24/20 15:40 108 H 21 144/78 H 94 11/24/20 15:31 108 H 19 93 11/24/20 15:30 108 H 19 163/85 H 93 11/24/20 15:23 101 H 23 131/66 96 11/24/20 15:21 94 11/24/20 14:30 101 H 17 109/53 L 96 11/24/20 14:20 17 103/62 98 11/24/20 14:10 76/47 L 98 11/24/20 14:00 95/80 L 97 11/24/20 13:59 76/44 L 97 11/24/20 13:50 20 73/44 L 96 11/24/20 13:40 20 78/49 L 97 11/24/20 13:30 20 74/44 L 96 11/24/20 13:10 92 H 21 77/45 L 95 11/24/20 13:02 92 H 17 95/56 L 95 11/24/20 12:51 93 H 18 77/48 L 96 11/24/20 12:41 91 H 17 81/46 L 93 11/24/20 12:33 90 16 80/46 L 98 11/24/20 12:30 91 H 18 61/48 L 98 11/24/20 12:21 91 H 16 78/51 L 94 11/24/20 12:20 90 16 97 11/24/20 12:11 88 16 99 11/24/20 12:10 88 17 71/42 L 99 11/24/20 12:01 87 16 99 11/24/20 12:00 86 16 74/38 L 99 11/24/20 11:51 91 H 17 98 11/24/20 11:50 91 H 18 72/53 L 98 11/24/20 11:40 90 19 67/36 L 98 11/24/20 11:34 91 H 17 75/40 L 98 11/24/20 11:31 91 H 22 78/39 L 99 11/24/20 11:13 95 11/24/20 11:12 95 11/24/20 11:00 96 H 17 70/41 L 95 11/24/20 10:55 96 H 18 65/42 L 96 11/24/20 10:31 95 H 18 71/42 L 97 11/24/20 10:30 38.0 C H 98 H 22 146/109 H 87 L 11/24/20 10:28 98 H 15 146/109 H 91 Laboratory Results 11/24/20 11:17 11/24/20 15:57 ABG 7.34/ 33/ 86/ 18 on 3L UA: turbid orange urine SG 1015, pH 7; 3+ blood, 2+ protein, trace ketones, 3+ LE, >30 wbc/rbc/epi's; 4+ bacteria blood and urine cxs pending Diagnostic Findings CT abd/pelvis non con FINDINGS: There are few small right renal calculi with the largest in the lower pole measuring 5 mm. Mild bilateral perinephric edema/fat stranding, right greater the left. There appear to be bilateral peripelvic cysts. There is also a 1.5 cm right exophytic hypodense lesion within the right kidney likely representing a cyst. There is mild to moderate right-sided hydroureteronephrosis secondary to an obstructing 4 mm stone within the distal right ureter best seen on image 388. This is immediately proximal to the right ureterovesical junction. The bladder is decompressed by Victor catheter. No left-sided hydronephrosis. Pernell cified granuloma seen within the base of the left lower lobe. There are patchy densities within the lungs posteriorly. This favors atelectasis/dependent change. No pneumoperitoneum. No pneumatosis. No suspicious lytic or blastic osseous lesions. There is a small fat-containing umbilical hernia. The uterus and bilateral adnexa are within normal limits. No pelvic free fluid. Suboptimal evaluation for bowel pathology due to the lack of intravenous and oral contrast. However, there is no definite bowel wall thickening or obstruction. Normal appendix. Layering density within the gallbladder favors small stones. The unenhanced liver, spleen, and pancreas are unremarkable. No retroperitoneal lymphadenopathy. Normal right adrenal gland. There is nodular thickening of the left adrenal gland. IMPRESSION: 1. A 4 mm obstructing stone within the distal right ureter resulting in mild to moderate right-sided hydronephrosis. 2. Right-sided nephrolithiasis. 3. No definite bowel wall thickening or obstruction. 4. Consolidation within the lungs posteriorly favors atelectasis. A pneumonia could also have a similar appearance. 4. Possible cholelithiasis. No gallbladder wall thickening. 6. The bladder is decompressed by Victor catheter. CXR admission 1. Suspected trace left pleural effusion with mild left basilar opacity that favors atelectasis. 2. Cardiomegaly. Pulmonary vascular congestion.
[2020-11-24] MEDS: VASOPRESSIN 20 UNITS in 0.9 % SODIUM CHLORIDE 100 ML IV SCH (19:29)
[2020-11-24 20:11] LABS: Base Excess ABG -10.1 mEq/L (-9-1.8); HCO3 ABG 16 mmol/L (19-24); Oxygen Saturation ABG 95.4 % (90-95); PCO2 ABG 34 mmHg (35-46); PO2 ABG 78 mmHg (80-95); pH ABG 7.29 (7.35-7.45)
[2020-11-24 20:22] LABS: Allen Test Pos (Pos)
[2020-11-24 20:25] LABS: BUN Creatinine Ratio 13.1 (10-20); Calcium 6.9 mg/dl (8.5-10.1); Creatinine Clr Calc Pharmacy 15.5 ml/min; Est GFR (African American) 12.9 ml/min; Est GFR (Non-African American) 11.2 ml/min; Potassium 3.9 mmol/L (3.5-5.1)
[2020-11-24] MEDS ORDERED: NORMOSOL-R 500 ML IV ONE (20:53)
[2020-11-24] MEDS ORDERED: CALCIUM GLUCONATE 10% 1,000 MG in SODIUM CHLORIDE 0.9% 50 ML IV ONE (20:54)
[2020-11-24] MEDS ORDERED: ALBUMIN 5% 250 ML IV ONE (22:02)
[2020-11-24] MEDS ORDERED: CALCIUM GLUCONATE 10% 2,000 MG in SODIUM CHLORIDE 0.9% 50 ML IV ONE (22:25)
[2020-11-24] MEDS ORDERED: SODIUM BICARB 8.4% INJ 50 MEQ/50 ML SYR IV STA (22:25)
[2020-11-24] MEDS ORDERED: NORMOSOL-R 1,000 ML IV ONE (22:26)
[2020-11-24 22:44] LABS: Hematocrit (blood only) 36.2 % (37-47); Hemoglobin 11.8 g/dL (12.0-16.0); Mean Corpuscular Hemoglobin 27.7 pg (25-34); Mean Corpuscular Hgb Conc 32.6 g/dL (32-36); Platelet Count 50 K/uL (130-400); RDW Coefficient of Variation 16.2 % (11.5-14.5); RDW Standard Deviation 50.4 fL (36.4-46.3); Red Blood Count 4.26 M/uL (4.2-5.4); White Blood Count 12.79 K/uL (4.8-10.8)
[2020-11-24 22:45] LABS: Platelet Estimate Decreased (Normal)
[2020-11-24] MEDS ORDERED: STAT IV STA (23:03)
[2020-11-24] MEDS ORDERED: ALBUMIN 25% 12.5 GM/50 ML VIAL IV ONE (23:18)
[2020-11-24] MEDS: SODIUM BICARBONATE 8.4% 100 MEQ in DEXTROSE 5% 1,000 ML IV SCH (23:33)
[2020-11-25] LABS: Allen Test Pos (Pos); Base Excess ABG -8.5 mEq/L (-9-1.8); HCO3 ABG 17 mmol/L (19-24); Oxygen Saturation ABG 96.5 % (90-95); PCO2 ABG 34 mmHg (35-46); PO2 ABG 88 mmHg (80-95); pH ABG 7.31 (7.35-7.45)
[2020-11-25 01:49] LABS: BUN Creatinine Ratio 12.8 (10-20); Creatinine Clr Calc Pharmacy 14.9 ml/min; Est GFR (African American) 12.3 ml/min; Est GFR (Non-African American) 10.6 ml/min; Potassium 3.7 mmol/L (3.5-5.1)
[2020-11-25] MEDS: VASOPRESSIN 20 UNITS in 0.9 % SODIUM CHLORIDE 100 ML IV SCH ×3 (02:08→20:26)
[2020-11-25] MEDS: PIPERACILLIN/TAZOBACTAM 3.375 GM in DEXTROSE 5% 100 ML IV SCH (03:18)
[2020-11-25 05:38] LABS: INR 1.7 (0.9-1.1); Partial Thromboplastin Ratio 1.9; Prothrombin Time 16.2 Seconds (9.0-12.0)
[2020-11-25 05:39] LABS: Hemoglobin 11.9 g/dL (12.0-16.0); Mean Corpuscular Hemoglobin 28.1 pg (25-34); Mean Corpuscular Hgb Conc 33.1 g/dL (32-36); Mean Corpuscular Volume 85.1 fL (80-100); Platelet Count 41 K/uL (130-400); RDW Coefficient of Variation 16.2 % (11.5-14.5); RDW Standard Deviation 50.9 fL (36.4-46.3); Red Blood Count 4.23 M/uL (4.2-5.4)
[2020-11-25 05:41] LABS: Partial Thromboplastin Time 49.6 Seconds (21.0-31.0)
[2020-11-25 05:42] LABS: BUN Creatinine Ratio 12.6 (10-20); Creatinine Clr Calc Pharmacy 14.5 ml/min; Est GFR (African American) 11.9 ml/min; Est GFR (Non-African American) 10.3 ml/min; Magnesium 2.1 mg/dl (1.8-2.4); Potassium 3.9 mmol/L (3.5-5.1)
[2020-11-25 05:51] LABS: Phosphorus 6.7 mg/dl (2.5-4.9); Troponin I 0.463 ng/ml (0-0.045)
[2020-11-25] MEDS ORDERED: CALCIUM GLUCONATE 10% 2,000 MG in SODIUM CHLORIDE 0.9% 50 ML IV ONE (06:00)
[2020-11-25] MEDS: NOREPINEPHRINE/D5W 8 MG/508 ML BAG IV SCH ×2 (06:33→22:52)
[2020-11-25 07:07] LABS: Basophils # (auto) 0.01 K/uL (0-0.2); Dohle Bodies 1+; Echinocytes 1+; Immature Granulocytes # (auto) 2.21 K/uL (0.00-0.02); Immature Granulocytes % (auto) 9.2 %; Lymphocytes # (auto) 0.29 K/uL (1.2-3.4); Lymphocytes % (auto) 1.2 %; Monocytes # (auto) 0.46 K/uL (0.11-0.59); Monocytes % (auto) 1.9 %; Neutrophils # (auto) 21.03 K/uL (1.4-6.5); Neutrophils % (auto) 87.7 %; Platelet Estimate Decreased (Normal); Toxic Vacuolation 1+
--- NOTE | 2020-11-25 07:24 | Urology Progress Note ---
Date of Service November 25, 2020 Assessment & Plan (1) Septic shock: (2) Hydronephrosis concurrent with and due to calculi of kidney and ureter: s/p emergent b/l stent placement - overall, remained relatively stable overnight - anticipate a slow recovery - nephrology and critical care team managing - no further planned interventions from , but I will certainly be following along waiting for improvement in condition Admission and Anticipated Discharge Date Admission Date: November 24, 2020 Subjective acutely ill patient admitted through the er yesterday and immediately taken to the OR for b/l stent placement remains quite ill, however, BP and other vitals are slightly improved this AM Cr yesenia again, as was expected remains on pressors - but seems to be responding better fortunately, she had a small amount of UoP overnight - but still quite limited Physical Exam Physical Exam: O2 mask in place minimal interaction with me pressors x2 running BP in the 110's HR ~ 100 abd soft urine within garcia tubing and bag, but low volumes, blood tinged still pitting edema of legs Results & Data ([facility]) Vital Signs (Past 12 Hours) Vital Signs Temp Pulse Resp BP Pulse Ox 11/25/20 06:30 103 H 21 112/50 L 92 11/25/20 06:00 104 H 25 H 109/59 L 92 11/25/20 05:45 104 H 22 110/64 93 11/25/20 05:30 108 H 22 118/61 92 11/25/20 05:15 103 H 24 108/59 L 92 11/25/20 05:00 106 H 23 112/64 92 11/25/20 04:46 107 H 24 126/60 92 11/25/20 04:15 108 H 22 121/62 92 11/25/20 04:00 36.7 C 109 H 24 121/61 92 11/25/20 03:45 109 H 22 117/66 93 11/25/20 03:30 109 H 23 138/61 92 11/25/20 03:15 113 H 23 114/72 92 11/25/20 03:00 114 H 20 127/64 93 11/25/20 02:45 113 H 23 131/71 92 11/25/20 02:30 113 H 20 121/59 L 92 11/25/20 02:15 112 H 20 118/60 92 11/25/20 02:01 116 H 21 92 11/25/20 02:00 117 H 22 127/65 92 11/25/20 01:45 114 H 19 118/59 L 92 11/25/20 01:30 114 H 20 120/58 L 92 11/25/20 01:15 115 H 19 114/61 91 11/25/20 01:01 113 H 23 112/63 92 11/25/20 00:45 117 H 18 92 11/25/20 00:30 113 H 21 92 11/25/20 00:15 115 H 24 132/57 L 93 11/25/20 00:00 36.8 C 117 H 24 136/57 L 93 11/24/20 23:45 119 H 22 133/52 L 93 11/24/20 23:30 118 H 22 129/55 L 11/24/20 23:15 117 H 20 131/57 L 98 11/24/20 23:01 115 H 25 H 141/58 H 99 11/24/20 22:30 117 H 24 143/77 H 96 11/24/20 22:15 121 H 24 135/54 L 93 11/24/20 22:00 116 H 19 139/58 L 95 11/24/20 21:45 108 H 18 113/53 L 95 11/24/20 21:30 107 H 19 95/49 L 95 11/24/20 21:15 111 H 21 103/51 L 95 11/24/20 21:00 112 H 18 100/48 L 94 11/24/20 20:45 111 H 19 105/51 L 93 11/24/20 20:30 109 H 17 101/48 L 93 11/24/20 20:15 113 H 20 107/57 L 94 11/24/20 20:00 36.7 C 113 H 20 110/57 L 94 11/24/20 19:30 112 H 18 90/42 L 94 PG Care Time/CCT Total # of Minutes Spent Total Time Spent with Patient: Total time spent is greater than 50% in coordination of care (as documented) at patient's floor/unit and/or counseling patient: Coding Level of Care Code 64162 Subseq Hosp Care Lvl 2 Diagnoses Septic shock A41.9; R65.21 Hydronephrosis concurrent with and due to calculi of kidney and ureter N13.2
--- NOTE | 2020-11-25 07:31 | Hospitalist Progress Note ---
Date of Service November 25, 2020 Assessment & Plan (1) Sepsis: (2) UTI (urinary tract infection): Urosepsis, septic shock , obstructive uropathy Gram-negative bacteremia/gram-negative sepsis Pt is a 70 y/o F with PMH HTN, HLD, Parkinson's, mild cognitive impairment, presented to ER with c/o weakness, lethargy, mental status change since afternoon day prior admission. In ER patient febrile with temp 38C rectally, P: 98, RR: 22, BP 71/42, 87% on room air WBC: 27, PLT: 92, INR: 1.4, BUN: 47, Cr: 3.8, lactate: 4.8, pro calcitonin > 200, UA: Consistent with UTI CXR: Suspected trace left pleural effusion with mild left basilar opacity that favors atelectasis. Cardiomegaly. Pulmonary vascular congestion In ER given Zosyn, IV Tylenol. Pt BP at 81/46 after 2L NSS bolus Pt with Victor placed in ER with no urine output -Obtain CT abdomen pelvis to rule out obstructing stone causing urosepsis and MIKE CT abdomen/ pelvis IMPRESSION: 1. A 4 mm obstructing stone within the distal right ureter resulting in mild to moderate right-sided hydronephrosis. 2. Right-sided nephrolithiasis. 3. No definite bowel wall thickening or obstruction. 4. Consolidation within the lungs posteriorly favors atelectasis. A pneumonia could also have a similar appearance. 4. Possible cholelithiasis. No gallbladder wall thickening. 6. The bladder is decompressed by Victor catheter. Obstructing ureteral stone A 4 mm obstructing stone within the distal right ureter resulting in mild to moderate right-sided hydronephrosis Urology consulted, for obstructing ureteral stone -Underwent emergent procedure, ureteral stents placed bilaterally (11/24) -She was then taken to ICU -Urine output mildly improved, urine is dark, bloody -Urology and nephrology following -Septic shock, hypotension, received several liters of fluid, started on Levophed in the ED -Overnight, patient on Levophed and vasopressin -Lactic acid still elevated at 4 -care per ICU team - prognosis is guarded at this time Gram-negative bacteremia -Patient is currently on Zosyn -Continue to follow final cultures (3) Elevated troponin: Elevated troponin: 0.15. EKG sinus rhythm with nonspecific ST changes Probable demand ischemia -Trend troponin -EKG in am (4) MIKE (acute kidney injury): BUN: 47, Cr: 3.8. Baseline Cr: 0.8 -secondary to septick shock, dehydration, obstructing calculi, pyonephritis -Nephrology consulted and following Metabolic acidosis, patient started on bicarb (5) Abnormal coagulation profile: PT: 13.6, INR: 1.4. Probable secondary to sepsis -Monitor coags -Patient is thrombocytopenia, INR 1.7 today, care per ICU, no plan for transfusion, FFP, hold chemoprophylaxis for DVT (6) HTN (hypertension): Currently hypotensive -Hold home amlodipine -Currently in ICU, requiring vasopressors (7) Parkinsons: Follows with [facility] [place] Neurology -Held Sinemet on admission - resume per ICU team DVT Prophylaxis SCDs Full Code as per discussion with pt's Follows with Dr Martell for routine care Admission and Anticipated Discharge Date Admission Date: November 24, 2020 Subjective Patient seen in follow-up of urosepsis, septic shock, gram-negative bacteremia Underwent urologic procedure emergently yesterday, ureteral stents placed bilaterally Currently on 2 pressors, Levophed and vaso- She is on bicarb Urine output somewhat improved overnight Patient is lying in bed, in ICU, appears in no acute distress This morning on 6 L of oxygen mask She is somnolent, however able to answer simple questions appropriately if prompted Denies any complaints Victor catheter is placed, dark urine, bloody Review of Systems Review of Systems: All systems reviewed & are unremarkable except as noted in HPI & below Patient has no complaints at this time however she is quite somnolent Physical Exam Physical Exam: General: obese elderly female, +ill appearing Head: normocephalic, atraumatic Eyes: PERRL, EOM's intact, conjunctiva non-injected, anicteric ENT: normal inspection external ears, nose, mucous membranes dry Neck: supple, trachea midline Lungs: On 6L oxygen via NC, + crackles CV: Mild tachycardic, HR low 100, no murmur, 2+ pretibial edema Abd: normal BS, soft, non-tender, no apparent CVA tenderness to palpation Ext: no cyanosis, no erythema Neuro: Somnolent, but able to answer simple questions when prompted Skin: warm, dry; sacrum with erythema and central eschar : Victor catheter, with dark urine, bloody Results & Data Results & Data ([facility]) Vital Signs (Past 12 Hours) Vital Signs Temp Pulse Resp BP Pulse Ox 11/25/20 06:30 103 H 21 112/50 L 92 11/25/20 06:00 104 H 25 H 109/59 L 92 11/25/20 05:45 104 H 22 110/64 93 11/25/20 05:30 108 H 22 118/61 92 11/25/20 05:15 103 H 24 108/59 L 92 11/25/20 05:00 106 H 23 112/64 92 11/25/20 04:46 107 H 24 126/60 92 11/25/20 04:15 108 H 22 121/62 92 11/25/20 04:00 36.7 C 109 H 24 121/61 92 11/25/20 03:45 109 H 22 117/66 93 11/25/20 03:30 109 H 23 138/61 92 11/25/20 03:15 113 H 23 114/72 92 11/25/20 03:00 114 H 20 127/64 93 11/25/20 02:45 113 H 23 131/71 92 11/25/20 02:30 113 H 20 121/59 L 92 11/25/20 02:15 112 H 20 118/60 92 11/25/20 02:01 116 H 21 92 11/25/20 02:00 117 H 22 127/65 92 11/25/20 01:45 114 H 19 118/59 L 92 11/25/20 01:30 114 H 20 120/58 L 92 11/25/20 01:15 115 H 19 114/61 91 11/25/20 01:01 113 H 23 112/63 92 11/25/20 00:45 117 H 18 92 11/25/20 00:30 113 H 21 92 11/25/20 00:15 115 H 24 132/57 L 93 11/25/20 00:00 36.8 C 117 H 24 136/57 L 93 11/24/20 23:45 119 H 22 133/52 L 93 11/24/20 23:30 118 H 22 129/55 L 11/24/20 23:15 117 H 20 131/57 L 98 11/24/20 23:01 115 H 25 H 141/58 H 99 11/24/20 22:30 117 H 24 143/77 H 96 11/24/20 22:15 121 H 24 135/54 L 93 11/24/20 22:00 116 H 19 139/58 L 95 11/24/20 21:45 108 H 18 113/53 L 95 11/24/20 21:30 107 H 19 95/49 L 95 11/24/20 21:15 111 H 21 103/51 L 95 11/24/20 21:00 112 H 18 100/48 L 94 11/24/20 20:45 111 H 19 105/51 L 93 11/24/20 20:30 109 H 17 101/48 L 93 11/24/20 20:15 113 H 20 107/57 L 94 11/24/20 20:00 36.7 C 113 H 20 110/57 L 94 11/24/20 19:30 112 H 18 90/42 L 94 Laboratory Results 11/25/20 11/25/20 11/25/20 Range/Units 05:04 05:02 05:02 WBC (4.8-10.8) K/uL RBC (4.2-5.4) M/uL Hgb (12.0-16.0) g/dL Hct (37-47) % MCV (80-100) fL MCH (25-34) pg MCHC (32-36) g/dL RDW Std Deviation (36.4-46.3) fL RDW Coeff of Donato (11.5-14.5) % Plt Count (130-400) K/uL MPV (7.4-10.4) fL Immature Gran % (Auto) % Neut % (Auto) % Lymph % (Auto) % [place] % (Auto) % Eos % (Auto) % Baso % (Auto) % Neut # (Auto) (1.4-6.5) K/uL Lymph # (Auto) (1.2-3.4) K/uL [place] # (Auto) (0.11-0.59) K/uL Eos # (Auto) (0-0.5) K/uL Baso # (Auto) (0-0.2) K/uL Immature Gran # (Auto) (0.00-0.02) K/uL Toxic Vacuolation Dohle Bodies Platelet Estimate (Normal) Echinocytes PT (9.0-12.0) Seconds INR (0.9-1.1) APTT (21.0-31.0) Seconds PTT Ratio ABG pH (7.35-7.45) ABG pCO2 (35-46) mmHg ABG pO2 (80-95) mmHg ABG HCO3 (19-24) mmol/L ABG O2 Saturation (90-95) % ABG Base Excess (-9-1.8) mEq/L Marky Test (Pos) Barometric Pressure mm/Hg Oxygen Given Sodium 139 (136-145) mmol/L Potassium 3.9 (3.5-5.1) mmol/L Chloride 107 (98-107) mmol/L Carbon Dioxide 18 L (21-32) mmol/L Anion Gap 14.0 H (3-11) BUN 52 H (7-18) mg/dl Creatinine 4.08 H (0.6-1.2) mg/dl Est Cr Clr Drug Dosing 14.5 ml/min Est GFR ( Amer) 11.9 ml/min Est GFR (Non-Af Amer) 10.3 ml/min BUN/Creatinine Ratio 12.6 (10-20) Glucose 177 H (70-99) mg/dl POC Glucose 165 H (70-99) mg/dl POC Glucose (other) (70-99) mg/dl Lactate (0.4-2.0) mmol/L Calcium 7.0 L (8.5-10.1) mg/dl Ionized Calcium 0.89 L (1.12-1.32) mmol/L Phosphorus 6.7 H (2.5-4.9) mg/dl Magnesium 2.1 (1.8-2.4) mg/dl Total Bilirubin (0.2-1) mg/dl AST (15-37) U/L ALT (12-78) U/L Alkaline Phosphatase (45-117) U/L Troponin I 0.463 H* (0-0.045) ng/ml Total Protein (6.4-8.2) gm/dl Albumin (3.4-5.0) gm/dl Globulin (2.5-4.0) gm/dl Albumin/Globulin Ratio (0.9-2) Procalcitonin (0-0.5) ng/ml Random Cortisol mcg/dl Urine Color Urine Appearance (Clear) Urine pH (4.5-7.5) Ur Specific [place] (1.000-1.030) Urine Protein (Negative) Urine Glucose (UA) (Negative) Urine Ketones (Negative) Urine Blood (Negative) Urine Nitrite (Negative) Urine Bilirubin (Negative) Urine Urobilinogen (Negative) Ur Leukocyte Esterase (Negative) Urine WBC (Auto) (0-5) /hpf Urine RBC (Auto) (0-4) /hpf U Hyaline Cast (Auto) (0-5) /lpf U Epithel Cells (Auto) (0-5) /lpf Urine Bacteria (Auto) (Negative) Nasal Screen MRSA (PCR) (Negative) COVID-19 Eval Order SARS-CoV-2 (PCR) (Negative) 11/25/20 11/25/20 11/25/20 Range/Units 05:02 05:02 05:02 WBC 24.00 H D (4.8-10.8) K/uL RBC 4.23 (4.2-5.4) M/uL Hgb 11.9 L (12.0-16.0) g/dL Hct 36.0 L (37-47) % MCV 85.1 (80-100) fL MCH 28.1 (25-34) pg MCHC 33.1 (32-36) g/dL RDW Std Deviation 50.9 H (36.4-46.3) fL RDW Coeff of Donato 16.2 H (11.5-14.5) % Plt Count 41 L (130-400) K/uL MPV (7.4-10.4) fL Immature Gran % (Auto) 9.2 % Neut % (Auto) 87.7 % Lymph % (Auto) 1.2 % Pender % (Auto) 1.9 % Eos % (Auto) 0.0 % Baso % (Auto) 0.0 % Neut # (Auto) 21.03 H (1.4-6.5) K/uL Lymph # (Auto) 0.29 L (1.2-3.4) K/uL [place]ender # (Auto) 0.46 (0.11-0.59) K/uL Eos # (Auto) 0.00 (0-0.5) K/uL Baso # (Auto) 0.01 (0-0.2) K/uL Immature Gran # (Auto) 2.21 H (0.00-0.02) K/uL Toxic Vacuolation 1+ Dohle Bodies 1+ Platelet Estimate Decreased L (Normal) Echinocytes 1+ PT 16.2 H (9.0-12.0) Seconds INR 1.7 H (0.9-1.1) APTT 49.6 H* (21.0-31.0) Seconds PTT Ratio 1.9 ABG pH (7.35-7.45) ABG pCO2 (35-46) mmHg ABG pO2 (80-95) mmHg ABG HCO3 (19-24) mmol/L ABG O2 Saturation (90-95) % ABG Base Excess (-9-1.8) mEq/L Marky Test (Pos) Barometric Pressure mm/Hg Oxygen Given Sodium (136-145) mmol/L Potassium (3.5-5.1) mmol/L Chloride (98-107) mmol/L Carbon Dioxide (21-32) mmol/L Anion Gap (3-11) BUN (7-18) mg/dl Creatinine (0.6-1.2) mg/dl Est Cr Clr Drug Dosing ml/min Est GFR ( Amer) ml/min Est GFR (Non-Af Amer) ml/min BUN/Creatinine Ratio (10-20) Glucose (70-99) mg/dl POC Glucose (70-99) mg/dl POC Glucose (other) (70-99) mg/dl Lactate 4.0 H* (0.4-2.0) mmol/L Calcium (8.5-10.1) mg/dl Ionized Calcium (1.12-1.32) mmol/L Phosphorus (2.5-4.9) mg/dl Magnesium (1.8-2.4) mg/dl Total Bilirubin (0.2-1) mg/dl AST (15-37) U/L ALT (12-78) U/L Alkaline Phosphatase (45-117) U/L Troponin I (0-0.045) ng/ml Total Protein (6.4-8.2) gm/dl Albumin (3.4-5.0) gm/dl Globulin (2.5-4.0) gm/dl Albumin/Globulin Ratio (0.9-2) Procalcitonin (0-0.5) ng/ml Random Cortisol mcg/dl Urine Color Urine Appearance (Clear) Urine pH (4.5-7.5) Ur Specific [place] (1.000-1.030) Urine Protein (Negative) Urine Glucose (UA) (Negative) Urine Ketones (Negative) Urine Blood (Negative) Urine Nitrite (Negative) Urine Bilirubin (Negative) Urine Urobilinogen (Negative) Ur Leukocyte Esterase (Negative) Urine WBC (Auto) (0-5) /hpf Urine RBC (Auto) (0-4) /hpf U Hyaline Cast (Auto) (0-5) /lpf U Epithel Cells (Auto) (0-5) /lpf Urine Bacteria (Auto) (Negative) Nasal Screen MRSA (PCR) (Negative) COVID-19 Eval Order SARS-CoV-2 (PCR) (Negative) 11/25/20 11/24/20 11/24/20 Range/Units 01:26 23:39 23:39 WBC (4.8-10.8) K/uL RBC (4.2-5.4) M/uL Hgb (12.0-16.0) g/dL Hct (37-47) % MCV (80-100) fL MCH (25-34) pg MCHC (32-36) g/dL RDW Std Deviation (36.4-46.3) fL RDW Coeff of Donato (11.5-14.5) % Plt Count (130-400) K/uL MPV (7.4-10.4) fL Immature Gran % (Auto) % Neut % (Auto) % Lymph % (Auto) % [place] % (Auto) % Eos % (Auto) % Baso % (Auto) % Neut # (Auto) (1.4-6.5) K/uL Lymph # (Auto) (1.2-3.4) K/uL [place] # (Auto) (0.11-0.59) K/uL Eos # (Auto) (0-0.5) K/uL Baso # (Auto) (0-0.2) K/uL Immature Gran # (Auto) (0.00-0.02) K/uL Toxic Vacuolation Dohle Bodies Platelet Estimate (Normal) Echinocytes PT (9.0-12.0) Seconds INR (0.9-1.1) APTT (21.0-31.0) Seconds PTT Ratio ABG pH 7.31 L (7.35-7.45) ABG pCO2 34 L (35-46) mmHg ABG pO2 88 (80-95) mmHg ABG HCO3 17 L (19-24) mmol/L ABG O2 Saturation 96.5 H (90-95) % ABG Base Excess -8.5 (-9-1.8) mEq/L Marky Test Pos (Pos) Barometric Pressure mm/Hg Oxygen Given 4L Sodium 141 (136-145) mmol/L Potassium 3.7 (3.5-5.1) mmol/L Chloride 108 H (98-107) mmol/L Carbon Dioxide 18 L (21-32) mmol/L Anion Gap 15.0 H (3-11) BUN 51 H (7-18) mg/dl Creatinine 3.97 H (0.6-1.2) mg/dl Est Cr Clr Drug Dosing 14.9 ml/min Est GFR ( Amer) 12.3 ml/min Est GFR (Non-Af Amer) 10.6 ml/min BUN/Creatinine Ratio 12.8 (10-20) Glucose 153 H (70-99) mg/dl POC Glucose (70-99) mg/dl POC Glucose (other) (70-99) mg/dl Lactate 4.8 H* (0.4-2.0) mmol/L Calcium 7.0 L (8.5-10.1) mg/dl Ionized Calcium (1.12-1.32) mmol/L Phosphorus (2.5-4.9) mg/dl Magnesium (1.8-2.4) mg/dl Total Bilirubin (0.2-1) mg/dl AST (15-37) U/L ALT (12-78) U/L Alkaline Phosphatase (45-117) U/L Troponin I (0-0.045) ng/ml Total Protein (6.4-8.2) gm/dl Albumin (3.4-5.0) gm/dl Globulin (2.5-4.0) gm/dl Albumin/Globulin Ratio (0.9-2) Procalcitonin (0-0.5) ng/ml Random Cortisol mcg/dl Urine Color Urine Appearance (Clear) Urine pH (4.5-7.5) Ur Specific [place] (1.000-1.030) Urine Protein (Negative) Urine Glucose (UA) (Negative) Urine Ketones (Negative) Urine Blood (Negative) Urine Nitrite (Negative) Urine Bilirubin (Negative) Urine Urobilinogen (Negative) Ur Leukocyte Esterase (Negative) Urine WBC (Auto) (0-5) /hpf Urine RBC (Auto) (0-4) /hpf U Hyaline Cast (Auto) (0-5) /lpf U Epithel Cells (Auto) (0-5) /lpf Urine Bacteria (Auto) (Negative) Nasal Screen MRSA (PCR) (Negative) COVID-19 Eval Order SARS-CoV-2 (PCR) (Negative) 11/24/20 11/24/20 11/24/20 Range/Units 23:38 21:55 21:55 WBC 12.79 H D (4.8-10.8) K/uL RBC 4.26 (4.2-5.4) M/uL Hgb 11.8 L (12.0-16.0) g/dL Hct 36.2 L (37-47) % MCV 85.0 (80-100) fL MCH 27.7 (25-34) pg MCHC 32.6 (32-36) g/dL RDW Std Deviation 50.4 H (36.4-46.3) fL RDW Coeff of Donato 16.2 H (11.5-14.5) % Plt Count 50 L (130-400) K/uL MPV (7.4-10.4) fL Immature Gran % (Auto) % Neut % (Auto) % Lymph % (Auto) % [place] % (Auto) % Eos % (Auto) % Baso % (Auto) % Neut # (Auto) (1.4-6.5) K/uL Lymph # (Auto) (1.2-3.4) K/uL [place] # (Auto) (0.11-0.59) K/uL Eos # (Auto) (0-0.5) K/uL Baso # (Auto) (0-0.2) K/uL Immature Gran # (Auto) (0.00-0.02) K/uL Toxic Vacuolation Dohle Bodies Platelet Estimate Decreased L (Normal) Echinocytes PT (9.0-12.0) Seconds INR (0.9-1.1) APTT (21.0-31.0) Seconds PTT Ratio ABG pH (7.35-7.45) ABG pCO2 (35-46) mmHg ABG pO2 (80-95) mmHg ABG HCO3 (19-24) mmol/L ABG O2 Saturation (90-95) % ABG Base Excess (-9-1.8) mEq/L Marky Test (Pos) Barometric Pressure mm/Hg Oxygen Given Sodium (136-145) mmol/L Potassium (3.5-5.1) mmol/L Chloride (98-107) mmol/L Carbon Dioxide (21-32) mmol/L Anion Gap (3-11) BUN (7-18) mg/dl Creatinine (0.6-1.2) mg/dl Est Cr Clr Drug Dosing ml/min Est GFR ( Amer) ml/min Est GFR (Non-Af Amer) ml/min BUN/Creatinine Ratio (10-20) Glucose (70-99) mg/dl POC Glucose 113 H (70-99) mg/dl POC Glucose (other) (70-99) mg/dl Lactate (0.4-2.0) mmol/L Calcium (8.5-10.1) mg/dl Ionized Calcium 0.92 L (1.12-1.32) mmol/L Phosphorus (2.5-4.9) mg/dl Magnesium (1.8-2.4) mg/dl Total Bilirubin (0.2-1) mg/dl AST (15-37) U/L ALT (12-78) U/L Alkaline Phosphatase (45-117) U/L Troponin I (0-0.045) ng/ml Total Protein (6.4-8.2) gm/dl Albumin (3.4-5.0) gm/dl Globulin (2.5-4.0) gm/dl Albumin/Globulin Ratio (0.9-2) Procalcitonin (0-0.5) ng/ml Random Cortisol mcg/dl Urine Color Urine Appearance (Clear) Urine pH (4.5-7.5) Ur Specific [place] (1.000-1.030) Urine Protein (Negative) Urine Glucose (UA) (Negative) Urine Ketones (Negative) Urine Blood (Negative) Urine Nitrite (Negative) Urine Bilirubin (Negative) Urine Urobilinogen (Negative) Ur Leukocyte Esterase (Negative) Urine WBC (Auto) (0-5) /hpf Urine RBC (Auto) (0-4) /hpf U Hyaline Cast (Auto) (0-5) /lpf U Epithel Cells (Auto) (0-5) /lpf Urine Bacteria (Auto) (Negative) Nasal Screen MRSA (PCR) (Negative) COVID-19 Eval Order SARS-CoV-2 (PCR) (Negative) 11/24/20 11/24/20 11/24/20 Range/Units 21:55 19:57 19:57 WBC (4.8-10.8) K/uL RBC (4.2-5.4) M/uL Hgb (12.0-16.0) g/dL Hct (37-47) % MCV (80-100) fL MCH (25-34) pg MCHC (32-36) g/dL RDW Std Deviation (36.4-46.3) fL RDW Coeff of Donato (11.5-14.5) % Plt Count (130-400) K/uL MPV (7.4-10.4) fL Immature Gran % (Auto) % Neut % (Auto) % Lymph % (Auto) % [place] % (Auto) % Eos % (Auto) % Baso % (Auto) % Neut # (Auto) (1.4-6.5) K/uL Lymph # (Auto) (1.2-3.4) K/uL [place] # (Auto) (0.11-0.59) K/uL Eos # (Auto) (0-0.5) K/uL Baso # (Auto) (0-0.2) K/uL Immature Gran # (Auto) (0.00-0.02) K/uL Toxic Vacuolation Dohle Bodies Platelet Estimate (Normal) Echinocytes PT (9.0-12.0) Seconds INR (0.9-1.1) APTT (21.0-31.0) Seconds PTT Ratio ABG pH 7.29 L (7.35-7.45) ABG pCO2 34 L (35-46) mmHg ABG pO2 78 L (80-95) mmHg ABG HCO3 16 L (19-24) mmol/L ABG O2 Saturation 95.4 H (90-95) % ABG Base Excess -10.1 L (-9-1.8) mEq/L Marky Test Pos (Pos) Barometric Pressure 741.6 mm/Hg Oxygen Given 4 Sodium (136-145) mmol/L Potassium (3.5-5.1) mmol/L Chloride (98-107) mmol/L Carbon Dioxide (21-32) mmol/L Anion Gap (3-11) BUN (7-18) mg/dl Creatinine (0.6-1.2) mg/dl Est Cr Clr Drug Dosing ml/min Est GFR ( Amer) ml/min Est GFR (Non-Af Amer) ml/min BUN/Creatinine Ratio (10-20) Glucose (70-99) mg/dl POC Glucose (70-99) mg/dl POC Glucose (other) (70-99) mg/dl Lactate 5.7 H* (0.4-2.0) mmol/L Calcium (8.5-10.1) mg/dl Ionized Calcium (1.12-1.32) mmol/L Phosphorus (2.5-4.9) mg/dl Magnesium (1.8-2.4) mg/dl Total Bilirubin (0.2-1) mg/dl AST (15-37) U/L ALT (12-78) U/L Alkaline Phosphatase (45-117) U/L Troponin I 0.423 H* (0-0.045) ng/ml Total Protein (6.4-8.2) gm/dl Albumin (3.4-5.0) gm/dl Globulin (2.5-4.0) gm/dl Albumin/Globulin Ratio (0.9-2) Procalcitonin (0-0.5) ng/ml Random Cortisol mcg/dl Urine Color Urine Appearance (Clear) Urine pH (4.5-7.5) Ur Specific [place] (1.000-1.030) Urine Protein (Negative) Urine Glucose (UA) (Negative) Urine Ketones (Negative) Urine Blood (Negative) Urine Nitrite (Negative) Urine Bilirubin (Negative) Urine Urobilinogen (Negative) Ur Leukocyte Esterase (Negative) Urine WBC (Auto) (0-5) /hpf Urine RBC (Auto) (0-4) /hpf U Hyaline Cast (Auto) (0-5) /lpf U Epithel Cells (Auto) (0-5) /lpf Urine Bacteria (Auto) (Negative) Nasal Screen MRSA (PCR) (Negative) COVID-19 Eval Order SARS-CoV-2 (PCR) (Negative) 11/24/20 11/24/20 11/24/20 Range/Units 19:57 18:08 16:25 WBC (4.8-10.8) K/uL RBC (4.2-5.4) M/uL Hgb (12.0-16.0) g/dL Hct (37-47) % MCV (80-100) fL MCH (25-34) pg MCHC (32-36) g/dL RDW Std Deviation (36.4-46.3) fL RDW Coeff of Donato (11.5-14.5) % Plt Count (130-400) K/uL MPV (7.4-10.4) fL Immature Gran % (Auto) % Neut % (Auto) % Lymph % (Auto) % [place] % (Auto) % Eos % (Auto) % Baso % (Auto) % Neut # (Auto) (1.4-6.5) K/uL Lymph # (Auto) (1.2-3.4) K/uL [place] # (Auto) (0.11-0.59) K/uL Eos # (Auto) (0-0.5) K/uL Baso # (Auto) (0-0.2) K/uL Immature Gran # (Auto) (0.00-0.02) K/uL Toxic Vacuolation Dohle Bodies Platelet Estimate (Normal) Echinocytes PT (9.0-12.0) Seconds INR (0.9-1.1) APTT (21.0-31.0) Seconds PTT Ratio ABG pH (7.35-7.45) ABG pCO2 (35-46) mmHg ABG pO2 (80-95) mmHg ABG HCO3 (19-24) mmol/L ABG O2 Saturation (90-95) % ABG Base Excess (-9-1.8) mEq/L Marky Test (Pos) Barometric Pressure mm/Hg Oxygen Given Sodium 142 (136-145) mmol/L Potassium 3.9 (3.5-5.1) mmol/L Chloride 111 H (98-107) mmol/L Carbon Dioxide 16 L (21-32) mmol/L Anion Gap 15.0 H (3-11) BUN 50 H (7-18) mg/dl Creatinine 3.81 H (0.6-1.2) mg/dl Est Cr Clr Drug Dosing 15.5 ml/min Est GFR ( Amer) 12.9 ml/min Est GFR (Non-Af Amer) 11.2 ml/min BUN/Creatinine Ratio 13.1 (10-20) Glucose 88 (70-99) mg/dl POC Glucose (70-99) mg/dl POC Glucose (other) 71 (70-99) mg/dl Lactate (0.4-2.0) mmol/L Calcium 6.9 L (8.5-10.1) mg/dl Ionized Calcium (1.12-1.32) mmol/L Phosphorus (2.5-4.9) mg/dl Magnesium (1.8-2.4) mg/dl Total Bilirubin (0.2-1) mg/dl AST (15-37) U/L ALT (12-78) U/L Alkaline Phosphatase (45-117) U/L Troponin I (0-0.045) ng/ml Total Protein (6.4-8.2) gm/dl Albumin (3.4-5.0) gm/dl Globulin (2.5-4.0) gm/dl Albumin/Globulin Ratio (0.9-2) Procalcitonin (0-0.5) ng/ml Random Cortisol mcg/dl Urine Color Urine Appearance (Clear) Urine pH (4.5-7.5) Ur Specific [place] (1.000-1.030) Urine Protein (Negative) Urine Glucose (UA) (Negative) Urine Ketones (Negative) Urine Blood (Negative) Urine Nitrite (Negative) Urine Bilirubin (Negative) Urine Urobilinogen (Negative) Ur Leukocyte Esterase (Negative) Urine WBC (Auto) (0-5) /hpf Urine RBC (Auto) (0-4) /hpf U Hyaline Cast (Auto) (0-5) /lpf U Epithel Cells (Auto) (0-5) /lpf Urine Bacteria (Auto) (Negative) Nasal Screen MRSA (PCR) Negative (Negative) COVID-19 Eval Order SARS-CoV-2 (PCR) (Negative) 05/21/21 05/21/21 05/21/21 Range/Units 15:57 15:57 13:40 WBC (4.8-10.8) K/uL RBC (4.2-5.4) M/uL Hgb (12.0-16.0) g/dL Hct (37-47) % MCV (80-100) fL MCH (25-34) pg MCHC (32-36) g/dL RDW Std Deviation (36.4-46.3) fL RDW Coeff of Donato (11.5-14.5) % Plt Count (130-400) K/uL MPV (7.4-10.4) fL Immature Gran % (Auto) % Neut % (Auto) % Lymph % (Auto) % [place] % (Auto) % Eos % (Auto) % Baso % (Auto) % Neut # (Auto) (1.4-6.5) K/uL Lymph # (Auto) (1.2-3.4) K/uL [place] # (Auto) (0.11-0.59) K/uL Eos # (Auto) (0-0.5) K/uL Baso # (Auto) (0-0.2) K/uL Immature Gran # (Auto) (0.00-0.02) K/uL Toxic Vacuolation Dohle Bodies Platelet Estimate (Normal) Echinocytes PT (9.0-12.0) Seconds INR (0.9-1.1) APTT (21.0-31.0) Seconds PTT Ratio ABG pH 7.34 L (7.35-7.45) ABG pCO2 33 L (35-46) mmHg ABG pO2 86 (80-95) mmHg ABG HCO3 18 L (19-24) mmol/L ABG O2 Saturation 96.5 H (90-95) % ABG Base Excess -7.3 (-9-1.8) mEq/L Marky Test Pos (Pos) Barometric Pressure 743.2 mm/Hg Oxygen Given 3L Sodium 143 (136-145) mmol/L Potassium 4.0 D (3.5-5.1) mmol/L Chloride 113 H (98-107) mmol/L Carbon Dioxide 19 L (21-32) mmol/L Anion Gap 11.0 (3-11) BUN 45 H (7-18) mg/dl Creatinine 3.52 H D (0.6-1.2) mg/dl Est Cr Clr Drug Dosing 16.8 ml/min Est GFR ( Amer) 14.2 ml/min Est GFR (Non-Af Amer) 12.3 ml/min BUN/Creatinine Ratio 12.8 (10-20) Glucose 72 (70-99) mg/dl POC Glucose (70-99) mg/dl POC Glucose (other) (70-99) mg/dl Lactate 5.6 H* (0.4-2.0) mmol/L Calcium 7.0 L (8.5-10.1) mg/dl Ionized Calcium (1.12-1.32) mmol/L Phosphorus (2.5-4.9) mg/dl Magnesium (1.8-2.4) mg/dl Total Bilirubin (0.2-1) mg/dl AST (15-37) U/L ALT (12-78) U/L Alkaline Phosphatase (45-117) U/L Troponin I 0.200 H* (0-0.045) ng/ml Total Protein (6.4-8.2) gm/dl Albumin (3.4-5.0) gm/dl Globulin (2.5-4.0) gm/dl Albumin/Globulin Ratio (0.9-2) Procalcitonin (0-0.5) ng/ml Random Cortisol mcg/dl Urine Color Urine Appearance (Clear) Urine pH (4.5-7.5) Ur Specific [place] (1.000-1.030) Urine Protein (Negative) Urine Glucose (UA) (Negative) Urine Ketones (Negative) Urine Blood (Negative) Urine Nitrite (Negative) Urine Bilirubin (Negative) Urine Urobilinogen (Negative) Ur Leukocyte Esterase (Negative) Urine WBC (Auto) (0-5) /hpf Urine RBC (Auto) (0-4) /hpf U Hyaline Cast (Auto) (0-5) /lpf U Epithel Cells (Auto) (0-5) /lpf Urine Bacteria (Auto) (Negative) Nasal Screen MRSA (PCR) (Negative) COVID-19 Eval Order SARS-CoV-2 (PCR) (Negative) 11/24/20 11/24/20 11/24/20 Range/Units 13:40 11:20 11:20 WBC (4.8-10.8) K/uL RBC (4.2-5.4) M/uL Hgb (12.0-16.0) g/dL Hct (37-47) % MCV (80-100) fL MCH (25-34) pg MCHC (32-36) g/dL RDW Std Deviation (36.4-46.3) fL RDW Coeff of Donato (11.5-14.5) % Plt Count (130-400) K/uL MPV (7.4-10.4) fL Immature Gran % (Auto) % Neut % (Auto) % Lymph % (Auto) % [place] % (Auto) % Eos % (Auto) % Baso % (Auto) % Neut # (Auto) (1.4-6.5) K/uL Lymph # (Auto) (1.2-3.4) K/uL [place] # (Auto) (0.11-0.59) K/uL Eos # (Auto) (0-0.5) K/uL Baso # (Auto) (0-0.2) K/uL Immature Gran # (Auto) (0.00-0.02) K/uL Toxic Vacuolation Dohle Bodies Platelet Estimate (Normal) Echinocytes PT (9.0-12.0) Seconds INR (0.9-1.1) APTT (21.0-31.0) Seconds PTT Ratio ABG pH (7.35-7.45) ABG pCO2 (35-46) mmHg ABG pO2 (80-95) mmHg ABG HCO3 (19-24) mmol/L ABG O2 Saturation (90-95) % ABG Base Excess (-9-1.8) mEq/L Marky Test (Pos) Barometric Pressure mm/Hg Oxygen Given Sodium (136-145) mmol/L Potassium (3.5-5.1) mmol/L Chloride (98-107) mmol/L Carbon Dioxide (21-32) mmol/L Anion Gap (3-11) BUN (7-18) mg/dl Creatinine (0.6-1.2) mg/dl Est Cr Clr Drug Dosing ml/min Est GFR ( Amer) ml/min Est GFR (Non-Af Amer) ml/min BUN/Creatinine Ratio (10-20) Glucose (70-99) mg/dl POC Glucose (70-99) mg/dl POC Glucose (other) (70-99) mg/dl Lactate 3.5 H* (0.4-2.0) mmol/L Calcium (8.5-10.1) mg/dl Ionized Calcium (1.12-1.32) mmol/L Phosphorus (2.5-4.9) mg/dl Magnesium (1.8-2.4) mg/dl Total Bilirubin (0.2-1) mg/dl AST (15-37) U/L ALT (12-78) U/L Alkaline Phosphatase (45-117) U/L Troponin I (0-0.045) ng/ml Total Protein (6.4-8.2) gm/dl Albumin (3.4-5.0) gm/dl Globulin (2.5-4.0) gm/dl Albumin/Globulin Ratio (0.9-2) Procalcitonin (0-0.5) ng/ml Random Cortisol mcg/dl Urine Color Urine Appearance (Clear) Urine pH (4.5-7.5) Ur Specific [place] (1.000-1.030) Urine Protein (Negative) Urine Glucose (UA) (Negative) Urine Ketones (Negative) Urine Blood (Negative) Urine Nitrite (Negative) Urine Bilirubin (Negative) Urine Urobilinogen (Negative) Ur Leukocyte Esterase (Negative) Urine WBC (Auto) (0-5) /hpf Urine RBC (Auto) (0-4) /hpf U Hyaline Cast (Auto) (0-5) /lpf U Epithel Cells (Auto) (0-5) /lpf Urine Bacteria (Auto) (Negative) Nasal Screen MRSA (PCR) (Negative) COVID-19 Eval Order Covid19 at [facility] SARS-CoV-2 (PCR) NEGATIVE (Negative) 11/24/20 11/24/20 11/24/20 Range/Units 11:20 11:17 11:17 WBC (4.8-10.8) K/uL RBC (4.2-5.4) M/uL Hgb (12.0-16.0) g/dL Hct (37-47) % MCV (80-100) fL MCH (25-34) pg MCHC (32-36) g/dL RDW Std Deviation (36.4-46.3) fL RDW Coeff of Donato (11.5-14.5) % Plt Count (130-400) K/uL MPV (7.4-10.4) fL Immature Gran % (Auto) % Neut % (Auto) % Lymph % (Auto) % [place] % (Auto) % Eos % (Auto) % Baso % (Auto) % Neut # (Auto) (1.4-6.5) K/uL Lymph # (Auto) (1.2-3.4) K/uL [place] # (Auto) (0.11-0.59) K/uL Eos # (Auto) (0-0.5) K/uL Baso # (Auto) (0-0.2) K/uL Immature Gran # (Auto) (0.00-0.02) K/uL Toxic Vacuolation Dohle Bodies Platelet Estimate (Normal) Echinocytes PT (9.0-12.0) Seconds INR (0.9-1.1) APTT (21.0-31.0) Seconds PTT Ratio ABG pH (7.35-7.45) ABG pCO2 (35-46) mmHg ABG pO2 (80-95) mmHg ABG HCO3 (19-24) mmol/L ABG O2 Saturation (90-95) % ABG Base Excess (-9-1.8) mEq/L Marky Test (Pos) Barometric Pressure mm/Hg Oxygen Given Sodium (136-145) mmol/L Potassium (3.5-5.1) mmol/L Chloride (98-107) mmol/L Carbon Dioxide (21-32) mmol/L Anion Gap (3-11) BUN (7-18) mg/dl Creatinine (0.6-1.2) mg/dl Est Cr Clr Drug Dosing ml/min Est GFR ( Amer) ml/min Est GFR (Non-Af Amer) ml/min BUN/Creatinine Ratio (10-20) Glucose (70-99) mg/dl POC Glucose (70-99) mg/dl POC Glucose (other) (70-99) mg/dl Lactate (0.4-2.0) mmol/L Calcium (8.5-10.1) mg/dl Ionized Calcium (1.12-1.32) mmol/L Phosphorus (2.5-4.9) mg/dl Magnesium (1.8-2.4) mg/dl Total Bilirubin (0.2-1) mg/dl AST (15-37) U/L ALT (12-78) U/L Alkaline Phosphatase (45-117) U/L Troponin I (0-0.045) ng/ml Total Protein (6.4-8.2) gm/dl Albumin (3.4-5.0) gm/dl Globulin (2.5-4.0) gm/dl Albumin/Globulin Ratio (0.9-2) Procalcitonin > 200.00 H (0-0.5) ng/ml Random Cortisol 107.18 mcg/dl Urine Color Urine Appearance (Clear) Urine pH (4.5-7.5) Ur Specific [place] (1.000-1.030) Urine Protein (Negative) Urine Glucose (UA) (Negative) Urine Ketones (Negative) Urine Blood (Negative) Urine Nitrite (Negative) Urine Bilirubin (Negative) Urine Urobilinogen (Negative) Ur Leukocyte Esterase (Negative) Urine WBC (Auto) (0-5) /hpf Urine RBC (Auto) (0-4) /hpf U Hyaline Cast (Auto) (0-5) /lpf U Epithel Cells (Auto) (0-5) /lpf Urine Bacteria (Auto) (Negative) Nasal Screen MRSA (PCR) Negative (Negative) COVID-19 Eval Order SARS-CoV-2 (PCR) (Negative) 11/24/20 11/24/20 11/24/20 Range/Units 11:17 11:17 11:17 WBC (4.8-10.8) K/uL RBC (4.2-5.4) M/uL Hgb (12.0-16.0) g/dL Hct (37-47) % MCV (80-100) fL MCH (25-34) pg MCHC (32-36) g/dL RDW Std Deviation (36.4-46.3) fL RDW Coeff of Donato (11.5-14.5) % Plt Count (130-400) K/uL MPV (7.4-10.4) fL Immature Gran % (Auto) % Neut % (Auto) % Lymph % (Auto) % [place] % (Auto) % Eos % (Auto) % Baso % (Auto) % Neut # (Auto) (1.4-6.5) K/uL Lymph # (Auto) (1.2-3.4) K/uL [place] # (Auto) (0.11-0.59) K/uL Eos # (Auto) (0-0.5) K/uL Baso # (Auto) (0-0.2) K/uL Immature Gran # (Auto) (0.00-0.02) K/uL Toxic Vacuolation Dohle Bodies Platelet Estimate (Normal) Echinocytes PT 13.6 H (9.0-12.0) Seconds INR 1.4 H (0.9-1.1) APTT 44.8 H (21.0-31.0) Seconds PTT Ratio 1.7 ABG pH (7.35-7.45) ABG pCO2 (35-46) mmHg ABG pO2 (80-95) mmHg ABG HCO3 (19-24) mmol/L ABG O2 Saturation (90-95) % ABG Base Excess (-9-1.8) mEq/L Marky Test (Pos) Barometric Pressure mm/Hg Oxygen Given Sodium 141 (136-145) mmol/L Potassium 3.3 L (3.5-5.1) mmol/L Chloride 108 H (98-107) mmol/L Carbon Dioxide 21 (21-32) mmol/L Anion Gap 13.0 H (3-11) BUN 47 H (7-18) mg/dl Creatinine 3.88 H (0.6-1.2) mg/dl Est Cr Clr Drug Dosing 15.2 ml/min Est GFR ( Amer) 12.7 ml/min Est GFR (Non-Af Amer) 10.9 ml/min BUN/Creatinine Ratio 12.1 (10-20) Glucose 80 (70-99) mg/dl POC Glucose (70-99) mg/dl POC Glucose (other) (70-99) mg/dl Lactate 4.8 H* (0.4-2.0) mmol/L Calcium 8.1 L (8.5-10.1) mg/dl Ionized Calcium (1.12-1.32) mmol/L Phosphorus (2.5-4.9) mg/dl Magnesium 1.8 (1.8-2.4) mg/dl Total Bilirubin 1.0 (0.2-1) mg/dl AST 131 H (15-37) U/L ALT 67 (12-78) U/L Alkaline Phosphatase 98 (45-117) U/L Troponin I 0.156 H* (0-0.045) ng/ml Total Protein 5.8 L (6.4-8.2) gm/dl Albumin 2.7 L (3.4-5.0) gm/dl Globulin 3.1 (2.5-4.0) gm/dl Albumin/Globulin Ratio 0.9 (0.9-2) Procalcitonin (0-0.5) ng/ml Random Cortisol mcg/dl Urine Color Urine Appearance (Clear) Urine pH (4.5-7.5) Ur Specific [place] (1.000-1.030) Urine Protein (Negative) Urine Glucose (UA) (Negative) Urine Ketones (Negative) Urine Blood (Negative) Urine Nitrite (Negative) Urine Bilirubin (Negative) Urine Urobilinogen (Negative) Ur Leukocyte Esterase (Negative) Urine WBC (Auto) (0-5) /hpf Urine RBC (Auto) (0-4) /hpf U Hyaline Cast (Auto) (0-5) /lpf U Epithel Cells (Auto) (0-5) /lpf Urine Bacteria (Auto) (Negative) Nasal Screen MRSA (PCR) (Negative) COVID-19 Eval Order SARS-CoV-2 (PCR) (Negative) 11/24/20 11/24/20 Range/Units 11:17 10:55 WBC 27.92 H (4.8-10.8) K/uL RBC 4.26 (4.2-5.4) M/uL Hgb 12.1 (12.0-16.0) g/dL Hct 36.5 L (37-47) % MCV 85.7 (80-100) fL MCH 28.4 (25-34) pg MCHC 33.2 (32-36) g/dL RDW Std Deviation 49.7 H (36.4-46.3) fL RDW Coeff of Donato 15.8 H (11.5-14.5) % Plt Count 92 L (130-400) K/uL MPV 11.1 H (7.4-10.4) fL Immature Gran % (Auto) 2.3 % Neut % (Auto) 91.9 % Lymph % (Auto) 2.6 % [place] % (Auto) 3.1 % Eos % (Auto) 0.0 % Baso % (Auto) 0.1 % Neut # (Auto) 25.66 H (1.4-6.5) K/uL Lymph # (Auto) 0.73 L (1.2-3.4) K/uL [place] # (Auto) 0.86 H (0.11-0.59) K/uL Eos # (Auto) 0.01 (0-0.5) K/uL Baso # (Auto) 0.02 (0-0.2) K/uL Immature Gran # (Auto) 0.64 H (0.00-0.02) K/uL Toxic Vacuolation 2+ Dohle Bodies Platelet Estimate Decreased L (Normal) Echinocytes PT (9.0-12.0) Seconds INR (0.9-1.1) APTT (21.0-31.0) Seconds PTT Ratio ABG pH (7.35-7.45) ABG pCO2 (35-46) mmHg ABG pO2 (80-95) mmHg ABG HCO3 (19-24) mmol/L ABG O2 Saturation (90-95) % ABG Base Excess (-9-1.8) mEq/L Marky Test (Pos) Barometric Pressure mm/Hg Oxygen Given Sodium (136-145) mmol/L Potassium (3.5-5.1) mmol/L Chloride (98-107) mmol/L Carbon Dioxide (21-32) mmol/L Anion Gap (3-11) BUN (7-18) mg/dl Creatinine (0.6-1.2) mg/dl Est Cr Clr Drug Dosing ml/min Est GFR ( Amer) ml/min Est GFR (Non-Af Amer) ml/min BUN/Creatinine Ratio (10-20) Glucose (70-99) mg/dl POC Glucose (70-99) mg/dl POC Glucose (other) (70-99) mg/dl Lactate (0.4-2.0) mmol/L Calcium (8.5-10.1) mg/dl Ionized Calcium (1.12-1.32) mmol/L Phosphorus (2.5-4.9) mg/dl Magnesium (1.8-2.4) mg/dl Total Bilirubin (0.2-1) mg/dl AST (15-37) U/L ALT (12-78) U/L Alkaline Phosphatase (45-117) U/L Troponin I (0-0.045) ng/ml Total Protein (6.4-8.2) gm/dl Albumin (3.4-5.0) gm/dl Globulin (2.5-4.0) gm/dl Albumin/Globulin Ratio (0.9-2) Procalcitonin (0-0.5) ng/ml Random Cortisol mcg/dl Urine Color [place] Urine Appearance Turbid A (Clear) Urine pH 7.0 (4.5-7.5) Ur Specific [place] 1.015 (1.000-1.030) Urine Protein 2+ H (Negative) Urine Glucose (UA) Negative (Negative) Urine Ketones Trace H (Negative) Urine Blood 3+ H (Negative) Urine Nitrite Negative (Negative) Urine Bilirubin Negative (Negative) Urine Urobilinogen Negative (Negative) Ur Leukocyte Esterase 3+ H (Negative) Urine WBC (Auto) >30 H (0-5) /hpf Urine RBC (Auto) >30 H (0-4) /hpf U Hyaline Cast (Auto) 10-30 H (0-5) /lpf U Epithel Cells (Auto) >30 H (0-5) /lpf Urine Bacteria (Auto) 4+ H (Negative) Nasal Screen MRSA (PCR) (Negative) COVID-19 Eval Order SARS-CoV-2 (PCR) (Negative) Medications Administered Current Inpatient Medications Norepinephrine Bitartrate (Levophed/D5w) 8 mg in 508 mls @ 37.452 mls/hr IV .[id number] [facility]; Protocol Stop: 12/24/20 13:59 Last Admin: 11/25/20 06:33 Dose: 0.1 mcg/kg/min, 37.5 mls/hr Documented by: Pantoprazole Sodium 40 mg/ (Syringe) 10 mls @ 5 mls/min IV DAILY@1100 [facility] Stop: 11/28/20 11:01 Piperacillin Sod/Tazobactam (Sod 3.375 gm/ Dextrose) 115 mls @ 28.75 mls/hr IV Q12H [facility]; Protocol Stop: 12/03/20 19:59 Last Admin: 11/25/20 03:18 Dose: 28.8 mls/hr Documented by: Vasopressin 20 units/ Sodium (Chloride) 101 mls @ 12.12 mls/hr IV .[id number] [facility] Stop: 12/24/20 19:14 Last Admin: 11/25/20 02:08 Dose: 0.04 unit/min, 12.1 mls/hr Documented by: Sodium Bicarbonate 100 meq/ (Dextrose) 1,100 mls @ 125 mls/hr IV .[id number] [facility] Stop: 12/24/20 23:14 Last Admin: 11/24/20 23:33 Dose: 125 mls/hr Documented by: Miscellaneous ([facility] Protocol For Hyperglycemia) 1 ea N/A PRN PRN; Protocol PRN Reason: Hyperglycemia Protocol Stop: 11/26/20 15:36 Miscellaneous Information (Piperacill/Tazobac Consult Active) 1 ea N/A UD PRN PRN Reason: Consult Stop: 12/24/20 10:33 (1) Sepsis Acute renal failure type: unspecified Sepsis acute organ dysfunction status: with acute organ dysfunction Sepsis type: sepsis due to unspecified organism Severe sepsis acute organ dysfunction type: acute renal failure Severe sepsis shock status: with septic shock Qualified Code(s): A41.9 - Sepsis, unspecified organism; R65.21 - Severe sepsis with septic shock; N17.9 - Acute kidney failure, unspecified (2) UTI (urinary tract infection) Urinary tract infection type: site unspecified
--- NOTE | 2020-11-25 08:36 | XRay Report ---
XR chest 1V portable HISTORY: 70 years-old Female hypoxia acute hypoxia COMPARISON: Chest radiograph 11/24/2020 TECHNIQUE: Portable AP view of the chest FINDINGS: Left subclavian [id number] catheter appears unchanged. Cardiomegaly with pulmonary vascular conges tion and bronchovascular crowding. Small pleural effusions with bibasilar opacities and reticular int erstitial densities, progressively worsened. Degenerative changes of the shoulders and spine. IMPRESSION: 1. Cardiomegaly with mildly progressed pulmonary edema. 2. Small pleural effusions with bibasilar opacities suggestive of atelectasis. ACT 112: Negative or not required by law. The above report was generated using voice recognition software. It may contain grammatical, syntax o r spelling errors. Electronically signed by: Dragan Fuller M.D. 11/25/2020 8:35 AM
[2020-11-25] MEDS: SODIUM BICARBONATE 8.4% 100 MEQ in DEXTROSE 5% 1,000 ML IV SCH ×2 (08:44→17:30)
--- NOTE | 2020-11-25 09:10 | Anesthesiology Progress Note ---
Date of Service November 25, 2020 Anesthesia Post Procedure Vital Signs Vital Signs: Temp Pulse Resp BP Pulse Ox 11/25/20 08:01 103 H 24 90 11/25/20 08:00 104 H 24 117/62 90 11/25/20 07:45 103 H 26 H 91 11/25/20 07:31 105 H 22 92 11/25/20 07:30 36.9 C 104 H 24 123/68 92 11/25/20 07:15 106 H 22 92 11/25/20 07:01 105 H 23 92 11/25/20 07:00 102 H 23 122/57 L 92 11/25/20 06:45 103 H 25 H 92 11/25/20 06:30 103 H 21 112/50 L 92 11/25/20 06:00 104 H 25 H 109/59 L 92 11/25/20 05:45 104 H 22 110/64 93 11/25/20 05:30 108 H 22 118/61 92 11/25/20 05:15 103 H 24 108/59 L 92 11/25/20 05:00 106 H 23 112/64 92 11/25/20 04:46 107 H 24 126/60 92 11/25/20 04:15 108 H 22 121/62 92 11/25/20 04:00 36.7 C 109 H 24 121/61 92 11/25/20 03:45 109 H 22 117/66 93 11/25/20 03:30 109 H 23 138/61 92 11/25/20 03:15 113 H 23 114/72 92 11/25/20 03:00 114 H 20 127/64 93 11/25/20 02:45 113 H 23 131/71 92 11/25/20 02:30 113 H 20 121/59 L 92 11/25/20 02:15 112 H 20 118/60 92 11/25/20 02:01 116 H 21 92 11/25/20 02:00 117 H 22 127/65 92 11/25/20 01:45 114 H 19 118/59 L 92 11/25/20 01:30 114 H 20 120/58 L 92 11/25/20 01:15 115 H 19 114/61 91 11/25/20 01:01 113 H 23 112/63 92 11/25/20 00:45 117 H 18 92 11/25/20 00:30 113 H 21 92 05/22/21 00:15 115 H 24 132/57 L 93 11/25/20 00:00 36.8 C 117 H 24 136/57 L 93 11/24/20 23:45 119 H 22 133/52 L 93 11/24/20 23:30 118 H 22 129/55 L 11/24/20 23:15 117 H 20 131/57 L 98 11/24/20 23:01 115 H 25 H 141/58 H 99 11/24/20 22:30 117 H 24 143/77 H 96 11/24/20 22:15 121 H 24 135/54 L 93 11/24/20 22:00 116 H 19 139/58 L 95 11/24/20 21:45 108 H 18 113/53 L 95 11/24/20 21:30 107 H 19 95/49 L 95 11/24/20 21:15 111 H 21 103/51 L 95 11/24/20 21:00 112 H 18 100/48 L 94 11/24/20 20:45 111 H 19 105/51 L 93 11/24/20 20:30 109 H 17 101/48 L 93 11/24/20 20:15 113 H 20 107/57 L 94 11/24/20 20:00 36.7 C 113 H 20 110/57 L 94 11/24/20 19:30 112 H 18 90/42 L 94 11/24/20 19:00 113 H 19 89/48 L 95 11/24/20 17:15 112 H 19 94 11/24/20 17:01 110 H 20 94 11/24/20 17:00 106 H 20 93/44 L 95 11/24/20 16:45 104 H 20 94 11/24/20 16:30 104 H 19 95 11/24/20 16:15 101 H 18 95 11/24/20 16:10 103 H 19 107/52 L 95 11/24/20 16:01 106 H 19 95 11/24/20 16:00 105 H 21 119/71 95 11/24/20 15:51 105 H 19 95 11/24/20 15:50 106 H 20 128/62 94 11/24/20 15:40 108 H 21 144/78 H 94 11/24/20 15:31 108 H 19 93 11/24/20 15:30 108 H 19 163/85 H 93 11/24/20 15:23 101 H 23 131/66 96 11/24/20 15:21 94 11/24/20 14:30 101 H 17 109/53 L 96 11/24/20 14:20 17 103/62 98 11/24/20 14:10 76/47 L 98 11/24/20 14:00 95/80 L 97 11/24/20 13:59 76/44 L 97 11/24/20 13:50 20 73/44 L 96 11/24/20 13:40 20 78/49 L 97 11/24/20 13:30 20 74/44 L 96 11/24/20 13:10 92 H 21 77/45 L 95 11/24/20 13:02 92 H 17 95/56 L 95 11/24/20 12:51 93 H 18 77/48 L 96 11/24/20 12:41 91 H 17 81/46 L 93 11/24/20 12:33 90 16 80/46 L 98 11/24/20 12:30 91 H 18 61/48 L 98 11/24/20 12:21 91 H 16 78/51 L 94 11/24/20 12:20 90 16 97 11/24/20 12:11 88 16 99 11/24/20 12:10 88 17 71/42 L 99 11/24/20 12:01 87 16 99 11/24/20 12:00 86 16 74/38 L 99 11/24/20 11:51 91 H 17 98 11/24/20 11:50 91 H 18 72/53 L 98 11/24/20 11:40 90 19 67/36 L 98 11/24/20 11:34 91 H 17 75/40 L 98 11/24/20 11:31 91 H 22 78/39 L 99 11/24/20 11:13 95 11/24/20 11:12 95 11/24/20 11:00 96 H 17 70/41 L 95 11/24/20 10:55 96 H 18 65/42 L 96 11/24/20 10:31 95 H 18 71/42 L 97 11/24/20 10:30 38.0 C H 98 H 22 146/109 H 87 L 11/24/20 10:28 98 H 15 146/109 H 91 Transfer of Care Handoff Completed per policy Notes Mental Status: alert / awake / arousable and participated in evaluation Nausea / Vomiting: adequately controlled Pain: adequately controlled Airway Patency, RR, SpO2: stable & adequate BP & HR: stable & adequate and see Notes below Hydration State: stable & adequate Anesthetic Complications: no major complications apparent and Pt Satisfied with anesthetic care Notes: Pt remains in ICU on IV fluid, vasopressors and oxygen. Pt satisfied with anesthesia.
[2020-11-25] MEDS ORDERED: ICU PROTOCOL FOR HYPERGLYCEMIA SCH (09:15)
[2020-11-25 09:18] LABS: BUN Creatinine Ratio 12.2 (10-20); Calcium 7.2 mg/dl (8.5-10.1); Creatinine Clr Calc Pharmacy 14.1 ml/min; Est GFR (African American) 11.2 ml/min; Est GFR (Non-African American) 9.7 ml/min; Potassium 4.2 mmol/L (3.5-5.1)
--- NOTE | 2020-11-25 09:22 | Critical Care Progress Note ---
Date of Service November 25, 2020 Assessment & Plan (1) Sepsis: (2) Hydronephrosis concurrent with and due to calculi of kidney and ureter: (3) MIKE (acute kidney injury): (4) Lactic acidosis: (5) Coagulopathy: Impression: 70-year-old female with Parkinson's hypertension hyperlipi demia now with pyelonephritis, hydronephrosis, acute renal failure, and a distal right obstructing nephrolithiasis. Patient has been seen in consultation by anesthesia and urology and is going to the OR for stent placement. 24-hour events: Patient presented to the emergency room. She is admitted by the hospitalist and seen with an urgent critical care consultation. Central lines and arterial lines were placed in the emergency room to the OR and underwent bilateral stent placement. She returned to the ICU. Overnight she developed progressive hemodynamic instability requiring escalating doses of norepinephrine in addition of vasopressin. 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 She has had increasing oxygen requirement overnight with fluid admini stration. Bicarb infusion was initiated due to metabolic acidosis Recommendations: 1. Neurologic: The patient appears to be mildly encephalopathic likely due to her underlying metabolic issues. She does have a history of Parkinson's disease. We will continue to follow as we correct her metabolic abnormalities. Hopefully this will result in improvement in her mental status. May consider restarting her parkinsonian medications when oral medications are feasible. Pain control as needed postoperatively. 2. Cardiovascular: Septic shock due to pyelonephritis and infected nephrolithiasis. Appears adequately fluid resuscitated. Continue to wean pressors. Random cortisol was normal. Check echocardiogram 3. Pulmonary: Increasing oxygen requirement likely secondary to atelectasis as well as is about 8 L positive with her resuscitation. Could consider diuretics but given her kidney function will hold off until nephrology makes recommendations. 4. Renal: Acute renal failure secondary to ATN/hypoperfusion as well as obstructive uropathy status post bilateral stent placement. Defer diuretics to nephrology. She did have progressive metabolic acidosis and was started on a bicarb infusion. Follow-up blood gas this morning this is likely contributing to her volume overload. Awaiting follow-up lab including follow-up lactate 5. ID: Pyelonephritis, gram-negative rods. Continue Zosyn dosed by pharmacy for now. Await cultures. Will follow pro calcitonin white blood cell count. 6. GI: Keep n.p.o. at this point time until her hemodynamics improve 7. Endocrine: Glycemic control per ICU protocol. Random cortisol was appropriate. 8. Heme-onc: Marked leukocytosis secondary to sepsis. Hemoglobin hematocrit are currently stable. Platelet decreasing to 41 likely secondary to sepsis. We will continue to follow at this point time. No indication for transfusions from my standpoint. No evidence of bleeding so we will hold on platelet transfusion. No suspicion for HIT. She is mildly coagulopathic with an elevated INR. We will continue to trend at this point in time. I suspect this is related to her gram-negative sepsis. Again no evidence of bleeding so no indication for FFP currently. We will hold DVT prophylaxis given her low platelets and elevated INR 45 minutes critical care time at this point in time. Patient suffers from potential life and limb threatening illness. Discussed with patient and bedside critical care nurse. Admission and Anticipated Discharge Date Admission Date: November 24, 2020 Subjective Pt seen and examined. Discussed with bedside HEALTHCARE SCIENCE SPECIALIST and patient. She is without complaints this AM. Denies chest pain, abdominal pain or sob. No cough or sputum. Review of Systems Review of Systems: All systems reviewed & are unremarkable except as noted in HPI & below Physical Exam Constitutional: + ill appearing and + lethargic; not in distress Neck: trachea midline, no thyromegaly Respiratory: normal respiratory effort; no respiratory distress Auscu ltation: + crackles Cardiovascular: Rate/Rhythm: + tachycardic Heart Sounds: normal S1 and normal S2; no murmur Extremities: no edema Gastrointestinal (Abdomen): normal bowel sounds, soft, nontender, no hepatosplenomegaly Musculoskeletal: Extremities: extremities normal to inspection Skin: no rashes, warm and dry Neurologic: Nonfocal exam Lymphatic: no cervical lymphadenopathy Results & Data Results & Data ([place]) Vital Signs (Past 12 Hours) Vital Signs Temp Pulse Resp BP Pulse Ox 11/25/20 08:01 103 H 24 90 11/25/20 08:00 104 H 24 117/62 90 11/25/20 07:45 103 H 26 H 91 11/25/20 07:31 105 H 22 92 11/25/20 07:30 36.9 C 104 H 24 123/68 92 11/25/20 07:15 106 H 22 92 11/25/20 07:01 105 H 23 92 11/25/20 07:00 102 H 23 122/57 L 92 11/25/20 06:45 103 H 25 H 92 11/25/20 06:30 103 H 21 112/50 L 92 11/25/20 06:00 104 H 25 H 109/59 L 92 11/25/20 05:45 104 H 22 110/64 93 11/25/20 05:30 108 H 22 118/61 92 11/25/20 05:15 103 H 24 108/59 L 92 11/25/20 05:00 106 H 23 112/64 92 11/25/20 04:46 107 H 24 126/60 92 11/25/20 04:15 108 H 22 121/62 92 11/25/20 04:00 36.7 C 109 H 24 121/61 92 11/25/20 03:45 109 H 22 117/66 93 11/25/20 03:30 109 H 23 138/61 92 11/25/20 03:15 113 H 23 114/72 92 11/25/20 03:00 114 H 20 127/64 93 11/25/20 02:45 113 H 23 131/71 92 11/25/20 02:30 113 H 20 121/59 L 92 11/25/20 02:15 112 H 20 118/60 92 11/25/20 02:01 116 H 21 92 11/25/20 02:00 117 H 22 127/65 92 11/25/20 01:45 114 H 19 118/59 L 92 11/25/20 01:30 114 H 20 120/58 L 92 11/25/20 01:15 115 H 19 114/61 91 11/25/20 01:01 113 H 23 112/63 92 11/25/20 00:45 117 H 18 92 11/25/20 00:30 113 H 21 92 11/25/20 00:15 115 H 24 132/57 L 93 11/25/20 00:00 36.8 C 117 H 24 136/57 L 93 11/24/20 23:45 119 H 22 133/52 L 93 11/24/20 23:30 118 H 22 129/55 L 11/24/20 23:15 117 H 20 131/57 L 98 11/24/20 23:01 115 H 25 H 141/58 H 99 11/24/20 22:30 117 H 24 143/77 H 96 11/24/20 22:15 121 H 24 135/54 L 93 11/24/20 22:00 116 H 19 139/58 L 95 11/24/20 21:45 108 H 18 113/53 L 95 11/24/20 21:30 107 H 19 95/49 L 95 11/24/20 21:15 111 H 21 103/51 L 95 Critical Care Results & Data Vital Signs (Past 12 Hours) Vital Signs Temp Pulse Resp BP Pulse Ox 11/25/20 08:01 103 H 24 90 11/25/20 08:00 104 H 24 117/62 90 11/25/20 07:45 103 H 26 H 91 11/25/20 07:31 105 H 22 92 11/25/20 07:30 36.9 C 104 H 24 123/68 92 11/25/20 07:15 106 H 22 92 11/25/20 07:01 105 H 23 92 11/25/20 07:00 102 H 23 122/57 L 92 11/25/20 06:45 103 H 25 H 92 11/25/20 06:30 103 H 21 112/50 L 92 11/25/20 06:00 104 H 25 H 109/59 L 92 11/25/20 05:45 104 H 22 110/64 93 11/25/20 05:30 108 H 22 118/61 92 11/25/20 05:15 103 H 24 108/59 L 92 11/25/20 05:00 106 H 23 112/64 92 11/25/20 04:46 107 H 24 126/60 92 11/25/20 04:15 108 H 22 121/62 92 11/25/20 04:00 36.7 C 109 H 24 121/61 92 11/25/20 03:45 109 H 22 117/66 93 11/25/20 03:30 109 H 23 138/61 92 11/25/20 03:15 113 H 23 114/72 92 11/25/20 03:00 114 H 20 127/64 93 11/25/20 02:45 113 H 23 131/71 92 11/25/20 02:30 113 H 20 121/59 L 92 11/25/20 02:15 112 H 20 118/60 92 11/25/20 02:01 116 H 21 92 11/25/20 02:00 117 H 22 127/65 92 11/25/20 01:45 114 H 19 118/59 L 92 11/25/20 01:30 114 H 20 120/58 L 92 11/25/20 01:15 115 H 19 114/61 91 11/25/20 01:01 113 H 23 112/63 92 11/25/20 00:45 117 H 18 92 11/25/20 00:30 113 H 21 92 11/25/20 00:15 115 H 24 132/57 L 93 11/25/20 00:00 36.8 C 117 H 24 136/57 L 93 11/24/20 23:45 119 H 22 133/52 L 93 11/24/20 23:30 118 H 22 129/55 L 11/24/20 23:15 117 H 20 131/57 L 98 11/24/20 23:01 115 H 25 H 141/58 H 99 11/24/20 22:30 117 H 24 143/77 H 96 11/24/20 22:15 121 H 24 135/54 L 93 11/24/20 22:00 116 H 19 139/58 L 95 11/24/20 21:45 108 H 18 113/53 L 95 11/24/20 21:30 107 H 19 95/49 L 95 11/24/20 21:15 111 H 21 103/51 L 95 Lab & Micro Results (Past 24 Hours) RBC 4.23 M/uL (4.2-5.4) 11/25/20 WBC 24.00 K/uL (4.8-10.8) H 11/25/20 Hgb 11.9 g/dL (12.0-16.0) L 11/25/20 Hct 36.0 % (37-47) L 11/25/20 MCV 85.1 fL (80-100) 11/25/20 MCH 28.1 pg (25-34) 11/25/20 MCHC 33.1 g/dL (32-36) 11/25/20 RDW Standard Deviation 50.9 fL (36.4-46.3) H 11/25/20 RDW Coefficient of Variation 16.2 % (11.5-14.5) H 11/25/20 Plt Count 41 K/uL (130-400) L 11/25/20 MPV 11.1 fL (7.4-10.4) H 11/24/20 Neutrophils (%) (Auto) 87.7 % 11/25/20 Lymphocytes (%) (Auto) 1.2 % 11/25/20 Monocytes # (Auto) 0.46 K/uL (0.11-0.59) 11/25/20 Eosinophils # (Auto) 0.00 K/uL (0-0.5) 11/25/20 Immature Granulocyte % (Auto) 9.2 % 11/25/20 Neutrophils # (Auto) 21.03 K/uL (1.4-6.5) H 11/25/20 Lymphocytes # (Auto) 0.29 K/uL (1.2-3.4) L 11/25/20 Monocytes # (Auto) 0.46 K/uL (0.11-0.59) 11/25/20 Eosinophils # (Auto) 0.00 K/uL (0-0.5) 11/25/20 Basophils # (Auto) 0.01 K/uL (0-0.2) 11/25/20 Immature Granulocyte # (Auto) 2.21 K/uL (0.00-0.02) H 11/25/20 Echinocytes 1+ 11/25/20 Toxic Vacuolation 1+ 11/25/20 Dohle Bodies 1+ 11/25/20 Na 139 mmol/L (136-145) 11/25/20 K 3.9 mmol/L (3.5-5.1) 11/25/20 Cl 107 mmol/L (98-107) 11/25/20 CO2 18 mmol/L (21-32) L 11/25/20 Anion Gap 14.0 (3-11) H 11/25/20 BUN 52 mg/dl (7-18) H 11/25/20 Creatinine 4.08 mg/dl (0.6-1.2) H 11/25/20 Estimated GFR ( Amer) 11.9 ml/min 11/25/20 Estimated GFR (Non-Af Amer) 10.3 ml/min 11/25/20 BUN/Creatinine Ratio 12.6 (10-20) 11/25/20 Glu 177 mg/dl (70-99) H 11/25/20 Ca 7.0 mg/dl (8.5-10.1) L 11/25/20 Phosphorus Level 6.7 mg/dl (2.5-4.9) H 11/25/20 Total Bilirubin 1.0 mg/dl (0.2-1) 11/24/20 AST 131 U/L (15-37) H 11/24/20 ALT 67 U/L (12-78) 11/24/20 Alkaline Phosphatase 98 U/L (45-117) 11/24/20 TP 5.8 gm/dl (6.4-8.2) L 11/24/20 Albumin 2.7 gm/dl (3.4-5.0) L 11/24/20 Globulin 3.1 gm/dl (2.5-4.0) 11/24/20 Albumin/Globulin Ratio 0.9 (0.9-2) 11/24/20 Mg 2.1 mg/dl (1.8-2.4) 11/25/20 05:02 11/25/20 Calcium Level 7.0 mg/dl (8.5-10.1) L 11/25/20 05:02 11/25/20 Ionized Calcium 0.92 mmol/L (1.12-1.32) L 11/25/20 08:48 11/25/20 Prothromb Time International Ratio 1.7 (0.9-1.1) H 11/25/20 05:02 11/25/20 Blood Gas Barometric Pressure 741.6 mm/Hg 11/24/20 19:57 11/24/20 Arterial Blood pH 7.31 (7.35-7.45) L 11/24/20 23:39 11/24/20 Arterial Blood Partial Pressure CO2 34 mmHg (35-46) L 11/24/20 23:39 11/24/20 Arterial Blood Partial Pressure O2 88 mmHg (80-95) 11/24/20 23:39 11/24/20 Arterial Blood HCO3 17 mmol/L (19-24) L 11/24/20 23:39 11/24/20 Arterial Blood Base Excess -8.5 mEq/L (-9-1.8) 11/24/20 23:39 11/24/20 Arterial Blood Oxygen Saturation 96.5 % (90-95) H 11/24/20 23:39 11/24/20 Blood Gas Oxygen Given 4L 11/24/20 23:39 11/24/20 Marky Test Pos (Pos) 11/24/20 23:39 11/24/20 Blood Gas Barometric Pressure 741.6 mm/Hg 11/24/20 19:57 11/24/20 Microbiology 11/24/20 10:55 Urine Culture - Preliminary Urine,Straight Cath Gram negative bacilli Gram negative bacilli#2 11/24/20 11:28 Aerobic Blood Culture - Preliminary Blood Gram negative bacilli 11/24/20 11:17 Aerobic Blood Culture - Preliminary Blood Gram negative bacilli Anaerobic Blood Culture - Preliminary Gram negative bacilli Diagnostic Findings (Past 24 Hours) Chest X-Ray 11/24/20 10:34 XR chest 1V portable CLINICAL HISTORY: SEPSIS COMPARISON STUDY: No previous studies for comparison. FINDINGS: Incidental note is made of deformity of the left humeral head with severe osteoarthritis. Lung volumes are diminished. There may be a trace left pleural effusion. There is mild left basilar opacity. Cardiomegaly is noted. There is vascular congestion. Patient is rotated. Calcified granuloma within the left lower lung is noted. IMPRESSION: 1. Suspected trace left pleural effusion with mild left basilar opacity that favors atelectasis. 2. Cardiomegaly. Pulmonary vascular congestion. ACT 112: Negative or not required by law. Electronically signed by: Prasanna De Santiago M.D. 11/24/2020 11:22 AM Abdomen/Pelvis CT 11/24/20 12:[address] WITHOUT CONTRAST CT DOSE: 1206.15 mGycm HISTORY: Right-sided flank pain. eval for pyelonephritis/renal stone TECHNIQUE: Multiaxial CT images of the abdomen and pelvis were performed without contrast. A dose lowering technique was utilized adhering to the principles of ALARA. COMPARISON STUDY: None. FINDINGS: There are few small right renal calculi with the largest in the lower pole measuring 5 mm. Mild bilateral perinephric edema/fat stranding, right greater the left. There appear to be bilateral peripelvic cysts. There is also a 1.5 cm right exophytic hypodense lesion within the right kidney likely representing a cyst. There is mild to moderate right-sided hydroureteronephrosis secondary to an obstructing 4 mm stone within the distal right ureter best seen on image 388. This is immediately proximal to the right ureterovesical junction. The bladder is decompressed by Victor catheter. No left-sided hydronephrosis. Calcified granuloma seen within the base of the left lower lobe. There are patchy densities within the lungs posteriorly. This favors atelectasis/dependent change. No pneumoperitoneum. No pneumatosis. No suspicious lytic or blastic osseous lesions. There is a small fat-containing umbilical hernia. The uterus and bilateral adnexa are within normal limits. No pelvic free fluid. Suboptimal evaluation for bowel pathology due to the lack of intravenous and oral contrast. However, there is no definite bowel wall thickening or obstruction. Normal appendix. Layering density within the gallbladder favors small stones. The unenhanced liver, spleen, and pancreas are unremarkable. No retroperitoneal lymphadenopathy. Normal right adrenal gland. There is nodular thickening of the left adrenal gland. IMPRESSION: 1. A 4 mm obstructing stone within the distal right ureter resulting in mild to moderate right-sided hydronephrosis. 2. Right-sided nephrolithiasis. 3. No definite bowel wall thickening or obstruction. 4. Consolidation within the lungs posteriorly favors atelectasis. A pneumonia could also have a similar appearance. 4. Possible cholelithiasis. No gallbladder wall thickening. 6. The bladder is decompressed by Victor catheter. ACT 112: Negative or not required by law. Electronically signed by: Brad Langford M.D. 11/24/2020 1:43 PM Abdomen Fluoroscopy 11/24/20 14:14 FL KUB HISTORY: 70 years-old Female CYSTO status post placement of bilateral ureteral stents. Right ureteral calculus. COMPARISON: CT abdomen and pelvis of same day TECHNIQUE: 2 spot fluoroscopic images of the abdomen were obtained utilizing 9.6 seconds fluoroscopy time FINDINGS: Bilateral ureteral stents have been placed, the proximal portions appearing to be in satisfactory positioning. No ureteral calculi identified. The distal stents were not imaged. IMPRESSION: Fluoroscopic assistance as above. ACT 112: Negative or not required by law. The above report was generated using voice recognition software. It may contain grammatical, syntax or spelling errors. Electronically signed by: Dragan Fuller M.D. 11/24/2020 3:15 PM Chest X-Ray 11/24/20 14:15 XR chest 1V portable CLINICAL HISTORY: confirm line placement COMPARISON STUDY: Chest radiograph performed earlier today. FINDINGS: Tip of the left subclavian central line is within the SVC. No pneumothorax is identified. Cardiomegaly is unchanged. Interstitial thickening is unchanged. There may be a trace left pleural effusion. IMPRESSION: 1. No pneumothorax following placement of a left subclavian central line. 2. Interstitial thickening which favors mild pulmonary edema. Trace left pleural effusion. ACT 112: Negative or not required by law. Electronically signed by: Prasanna De Santiago M.D. 11/24/2020 2:44 PM Chest X-Ray 11/25/20 07:00 XR chest 1V portable HISTORY: 70 years-old Female hypoxia acute hypoxia COMPARISON: Chest radiograph 11/24/2020 TECHNIQUE: Portable AP view of the chest FINDINGS: Left subclavian Falytb-[id number] catheter appears unchanged. Cardiomegaly with pulmonary vascular congestion and bronchovascular crowding. Small pleural effusions with bibasilar opacities and reticular interstitial densities, progressively worsened. Degenerative changes of the shoulders and spine. IMPRESSION: 1. Cardiomegaly with mildly progressed pulmonary edema. 2. Small pleural effusions with bibasilar opacities suggestive of atelectasis. ACT 112: Negative or not required by law. The above report was generated using voice recognition software. It may contain grammatical, syntax or spelling errors. Electronically signed by: Dragan Fuller M.D. 11/25/2020 8:35 AM I & O Totals 24 Hours 11/24/20 11/25/20 11/26/20 06:59 06:59 06:59 Intake Total 7772.477 / 7772.477 1215 / 1215 Output Total 457 / 457 80 / 80 Balance 7315.477 / 7315.477 1135 / 1135 Cumulative 11/24/20 07:00 thru 11/25/20 09:08 Intake Total 8987.477 Output Total 537 Balance 8450.477 RT Ventilator Mngmt (Last Documented) Ventilator Ordered Settings Respiratory Rate 24 11/25/20 08:01 Fraction of Inspired Oxygen 6 11/25/20 07:30 Ventilator - PT Measurements Respiratory Rate 24 Coding Level of Care Code Critical Care 1st 30-74 mins Diagnoses Sepsis A41.9; R65.21; N17.9 Acute renal failure type: unspecified Sepsis acute organ dysfunction status: with acute organ dysfunction Sepsis type: sepsis due to unspecified organism Severe sepsis acute organ dysfunction type: acute renal failure Severe sepsis shock status: with septic shock Hydronephrosis concurrent with and due to calculi of kidney and ureter N13.2 MIKE (acute kidney injury) N17.9 Lactic acidosis E87.2 Coagulopathy D68.9 Time Spent (min) 45 (1) Sepsis Acute renal failure type: unspecified Sepsis acute organ dysfunction status: with acute organ dysfunction Sepsis type: sepsis due to unspecified organism Severe sepsis acute organ dysfunction type: acute renal failure Severe sepsis shock status: with septic shock Qualified Code(s): A41.9 - Sepsis, unspecified organism; R65.21 - Severe sepsis with septic shock; N17.9 - Acute kidney failure, unspecified
[2020-11-25 09:32] LABS: iSTAT Arterial Blood Gas HCO3 20 meg/L (19-24); iSTAT Arterial Blood Gas pCO2 45 mmHg (35-46); iSTAT Arterial Blood Gas pH 7.26 (7.35-7.45); iSTAT Arterial Blood Gas pO2 75 mmHg (80-95); iSTAT Carbon Dioxide 21 mmol/L (24-31)
[2020-11-25] MEDS ORDERED: PROPOFOL IV EMULSION 10 MG/ML 100 ML VIAL IV ONE (10:49)
[2020-11-25] MEDS ORDERED: ETOMIDATE 2 MG/ML 20 ML VIAL IV ONE (10:51)
[2020-11-25 10:57] LABS: iSTAT Arterial Blood Gas HCO3 21 meg/L (19-24); iSTAT Arterial Blood Gas pCO2 47 mmHg (35-46); iSTAT Arterial Blood Gas pH 7.26 (7.35-7.45); iSTAT Arterial Blood Gas pO2 108 mmHg (80-95); iSTAT Carbon Dioxide 22 mmol/L (24-31)
[2020-11-25] MEDS ORDERED: PANTOprazole 40 MG in SYRINGE 0 ML IV SCH (11:00)
[2020-11-25] MEDS ORDERED: SODIUM BICARB 8.4% INJ 50 MEQ/50 ML SYR IV ONE (11:10)
[2020-11-25] MEDS ORDERED: fentaNYL DRIP 1,250 MCG/250 ML BAG IV SCH (11:15)
[2020-11-25] MEDS ORDERED: MIDAZOLAM HCL 125 MG/250 ML BAG IV SCH (11:15)
[2020-11-25] MEDS ORDERED: STAT IV Infusion **Titration per Protocol STA ×2 (11:15→16:26)
[2020-11-25] MEDS ORDERED: MIDAZOLAM BOLUS FROM BAG IV PRN (11:15)
[2020-11-25] MEDS ORDERED: PROPOFOL BOLUS FROM BAG IV PRN (11:15)
[2020-11-25] MEDS ORDERED: CALCIUM CHLORIDE 10% 1,000 MG in SODIUM CHLORIDE 0.9% 50 ML IV STA (11:17)
[2020-11-25] MEDS: propofoL 1,000 MG/100 ML VIAL IV SCH (11:20)
--- NOTE | 2020-11-25 11:21 | Communication Note ---
Date of Service: November 25, 2020 Patient reevaluated with laboratory studies. Her blood gas demonstrated progressive acidosis with both metabolic and respiratory components. She was placed on BiPAP for a period of about 60 minutes and repeat gas was obtained which unfortunately demonstrated no significant improvement in her PCO2 or pH. Decision was made to proceed with intubation. Please see separate note. Unfortunately her lactate remains elevated. Her serum creatinine is increased currently. We will continue the bicarb infusion given her persistent acidosis. Pending nephrology consultation. Family will be updated by phone An additional 45 minutes of critical care time exclusive of procedures to this point Coding Level of Care Code Critical Care ea addt'l 30 min Time Spent (min) 45
--- NOTE | 2020-11-25 11:25 | Procedure Note ---
Procedure Note Date of Service November 25, 2020 INTUBATION PROCEDURE NOTE: Provider: Paco Mueller MD A time-out was completed verifying correct patient, procedure, site, positioning. Patient was evaluated and required intubation for hypercapnic respiratory failure and progressive septic shock. Sedative agent used: Etomidate 40 mg, 5 mL propofol Paralysis agent used: None Emergent consent was implied given patients rapidly declining clinical status and need for airway protection. The patient was prepared in the appropriate fashion. She was preoxygenated on BiPAP. Once sedation had been administered, video laryngoscopy was performed. Vocal cords were easily visualized. A 7.5 Albanian endotracheal tube was placed under video laryngoscopy guidance to 22 cm at the lip. The stylette was removed and balloon was inflated with 10mL of air. Appropriate Colorimetric change was appreciated. Bilateral breath sounds were heard without air sounds in the abdomen. Post procedure chest x-ray is pending Patient did have hypotension transiently with initiation of sedation post procedure which required increase in norepinephrine and administration of 1 amp of bicarb. Coding CPT Codes Resuscitation - Resuscitation: 99046 Endotracheal Intubation, emergency ([id number]) [facility] [place] Procedure Codes ([place]arges) Resuscitation Resuscitation: 53693 Endotracheal Intubation, emergency
--- NOTE | 2020-11-25 12:21 | XRay Report ---
XR chest 1V portable HISTORY: 70 years-old Female resp failure acute respiratory failure COMPARISON: Chest radiograph of same day at 6:34 AM TECHNIQUE: Portable AP view of the chest FINDINGS: Endotracheal tube overlies the midline, 2.3 cm superior to the niya. Cardiac silhouette is enlarged . Pulmonary vascular congestion with persistent pulmonary edema, layering pleural effusions with biba silar consolidation. Status post placement of an enteric tube distal tip terminating below the diaphr agm outside the [id number]. The bones appear grossly intact. Chronic fracture deformity of the pro ximal left humerus. IMPRESSION: 1. Endotracheal tube terminates 2.3 cm superior to the niya. 2. Enteric tube courses below the diaphragm outside the field of view. 3. Cardiomegaly with persistent pulmonary edema. 4. Small pleural effusions with unchanged bibasilar consolidation. ACT 112: Negative or not required by law. The above report was generated using voice recognition software. It may contain grammatical, syntax o r spelling errors. Electronically signed by: Dragan Fuller M.D. 11/25/2020 12:19 PM
[2020-11-25 12:35] LABS: iSTAT Arterial Blood Gas HCO3 19 meg/L (19-24); iSTAT Arterial Blood Gas pCO2 29 mmHg (35-46); iSTAT Arterial Blood Gas pH 7.41 (7.35-7.45); iSTAT Arterial Blood Gas pO2 76 mmHg (80-95); iSTAT Carbon Dioxide 20 mmol/L (24-31)
--- NOTE | 2020-11-25 12:43 | Nephrology Progress Note ---
Date of Service November 25, 2020 Assessment & Plan (1) MIKE (acute kidney injury): anuric Stage 3 MIKE in the setting of septic shock. mild acidosis but chemistries otherwise acceptable. volume overloaded in the setting of septic shock, improving but still scant urine output. Chemistries acceptable. Not surprising to see creatinine worsening in the wake of yesterday's events. Notable hypocalcemia and she has had 5 g of calcium so far in the past 24 hours -continue to avoid nephrotoxins -continue q 4-8 hr bmp > replete calcium as indicated; changing away from bicarb drip when feasible may help improve ca readings -no indication for emergent dialysis and not likely to tolerate well hemo dynamically but cannot rule out need next 24 - 48 hrs Continue strict I's and O's (2) Septic shock: from pyelonephritis w/ gram negative septicemia; on zosyn, 2 pressors; overall 8.4L positive on the admission; s/p emergent BL ureteral stents. Lactate climbing after procedure/instrumentation; not unexpected. coagulopathy noted. -cont abtx, supportive care, f/u cxs -will d/w critical care best fluid mgt strategies -low threshold for TTE if hypotension persists Admission and Anticipated Discharge Date Admission Date: November 24, 2020 Subjective Seen on rounds this morning at 10 AM approximately. She is on 2 pressors and has since 9 AM been on BiPAP also on a bicarb drip (100 mEq/L) at 125 mL hourly. Patient lethargic but answers 2-3 simple questions: Denies pain or shortness of breath; about 35 to 50 mL hourly urine output currently; later this morning I note she was intubated Review of Systems Review of Systems: Limited due to clinical condition and lethargy Physical Exam Constitutional: well developed, + obese, comfortable and + lethargic; no acute distress ENMT: Ears: no external ear abnormality Nose: no external nose abnormality Mouth: + dry oral mucous membranes Neck: no nuchal rigidity Respiratory: normal respiratory effort Auscultation: lungs clear to auscultation bilaterally and + diminished lung sounds On BiPAP Cardiovascular: Rate/Rhythm: + tachycardic Extremities: + edema (2+ pretibial bilaterally, 4+ pedal) Gastrointestinal (Abdomen): Inspection/Auscultation: normal bowel sounds; abdomen not distended Percussion/Palpation: abdomen soft; abdomen nontender Musculoskeletal: Extremities: + abnormal strength (Generalized weakness) Skin: no rashes, warm and dry Neurologic: Moves all extremities, limited speech but answers appropriately, no tremor Psychiatric: Orientation: oriented to person and oriented to place Genitourinary: Victor with scant bloody urine Results & Data ([facility]) Vital Signs (Past 12 Hours) Vital Signs Temp Pulse Resp BP Pulse Ox 11/25/20 11:20 95 H 29 H 95 11/25/20 10:01 101 H 22 94 11/25/20 10:00 101 H 22 114/63 94 11/25/20 09:45 101 H 19 95 11/25/20 09:31 101 H 22 94 11/25/20 09:30 101 H 21 121/64 94 11/25/20 09:15 101 H 24 90 11/25/20 09:01 101 H 24 90 11/25/20 09:00 102 H 23 108/58 L 90 11/25/20 08:45 104 H 26 H 89 L 11/25/20 08:31 105 H 24 90 11/25/20 08:30 104 H 23 121/62 90 11/25/20 08:15 106 H 27 H 90 11/25/20 08:01 103 H 24 90 11/25/20 08:00 104 H 24 117/62 90 11/25/20 07:45 103 H 26 H 91 11/25/20 07:31 105 H 22 92 11/25/20 07:30 36.9 C 104 H 24 123/68 92 11/25/20 07:15 106 H 22 92 11/25/20 07:01 105 H 23 92 11/25/20 07:00 102 H 23 122/57 L 92 11/25/20 06:45 103 H 25 H 92 11/25/20 06:30 103 H 21 112/50 L 92 11/25/20 06:00 104 H 25 H 109/59 L 92 11/25/20 05:45 104 H 22 110/64 93 11/25/20 05:30 108 H 22 118/61 92 11/25/20 05:15 103 H 24 108/59 L 92 11/25/20 05:00 106 H 23 112/64 92 11/25/20 04:46 107 H 24 126/60 92 11/25/20 04:15 108 H 22 121/62 92 11/25/20 04:00 36.7 C 109 H 24 121/61 92 11/25/20 03:45 109 H 22 117/66 93 11/25/20 03:30 109 H 23 138/61 92 11/25/20 03:15 113 H 23 114/72 92 11/25/20 03:00 114 H 20 127/64 93 11/25/20 02:45 113 H 23 131/71 92 11/25/20 02:30 113 H 20 121/59 L 92 11/25/20 02:15 112 H 20 118/60 92 11/25/20 02:01 116 H 21 92 11/25/20 02:00 117 H 22 127/65 92 11/25/20 01:45 114 H 19 118/59 L 92 11/25/20 01:30 114 H 20 120/58 L 92 11/25/20 01:15 115 H 19 114/61 91 11/25/20 01:01 113 H 23 112/63 92 11/25/20 00:45 117 H 18 92 Laboratory Results 11/25/20 05:02 11/25/20 08:48 ABG 9 AM pH 7.26\PCO2 47\PO2 108\bicarb 21
[2020-11-25] MEDS ORDERED: DOBUTamine 500MG / 250ML D5W IV ONE (13:10)
[2020-11-25 13:40] LABS: BUN Creatinine Ratio 12.9 (10-20); Calcium 7.3 mg/dl (8.5-10.1); Creatinine Clr Calc Pharmacy 14.5 ml/min; Est GFR (African American) 11.3 ml/min; Est GFR (Non-African American) 9.7 ml/min
[2020-11-25] MEDS ORDERED: Nursing to Pharmacy Communication SCH (14:45)
[2020-11-25] MEDS: PIPERACILLIN/TAZOBACTAM 4.5 GM in DEXTROSE 5% 100 ML IV SCH (15:34)
[2020-11-25 21:08] LABS: iSTAT Arterial Blood Gas HCO3 21 meg/L (19-24); iSTAT Arterial Blood Gas pCO2 31 mmHg (35-46); iSTAT Arterial Blood Gas pH 7.44 (7.35-7.45); iSTAT Arterial Blood Gas pO2 86 mmHg (80-95); iSTAT Carbon Dioxide 22 mmol/L (24-31)
[2020-11-26] MEDS: NOREPINEPHRINE/D5W 8 MG/508 ML BAG IV SCH ×2 (01:19→06:24)
[2020-11-26] MEDS: SODIUM BICARBONATE 8.4% 100 MEQ in DEXTROSE 5% 1,000 ML IV SCH (03:09)
[2020-11-26] MEDS: propofoL 1,000 MG/100 ML VIAL IV SCH (03:10)
[2020-11-26] MEDS: PIPERACILLIN/TAZOBACTAM 4.5 GM in DEXTROSE 5% 100 ML IV SCH (03:11)
[2020-11-26] MEDS: VASOPRESSIN 20 UNITS in 0.9 % SODIUM CHLORIDE 100 ML IV SCH (04:46)
[2020-11-26 05:16] LABS: INR 1.2 (0.9-1.1); Prothrombin Time 11.8 Seconds (9.0-12.0)
[2020-11-26 05:35] LABS: iSTAT Arterial Blood Gas HCO3 24 meg/L (19-24); iSTAT Arterial Blood Gas pCO2 36 mmHg (35-46); iSTAT Arterial Blood Gas pH 7.43 (7.35-7.45); iSTAT Arterial Blood Gas pO2 72 mmHg (80-95); iSTAT Carbon Dioxide 25 mmol/L (24-31)
[2020-11-26 05:38] LABS: Hematocrit (blood only) 29.7 % (37-47); Hemoglobin 10.4 g/dL (12.0-16.0); Mean Corpuscular Hemoglobin 28.4 pg (25-34); Mean Corpuscular Volume 81.1 fL (80-100); Platelet Count 14 K/uL (130-400); RDW Coefficient of Variation 15.5 % (11.5-14.5); RDW Standard Deviation 46.2 fL (36.4-46.3); Red Blood Count 3.66 M/uL (4.2-5.4); White Blood Count 18.32 K/uL (4.8-10.8)
[2020-11-26 05:55] LABS: BUN Creatinine Ratio 12.7 (10-20); Calcium 6.7 mg/dl (8.5-10.1); Creatinine Clr Calc Pharmacy 13.4 ml/min; Est GFR (African American) 10.3 ml/min; Est GFR (Non-African American) 8.9 ml/min; Magnesium 1.6 mg/dl (1.8-2.4); Phosphorus 3.8 mg/dl (2.5-4.9)
[2020-11-26 05:59] LABS: Basophils # (auto) 0.01 K/uL (0-0.2); Basophils % (auto) 0.1 %; Dohle Bodies 1+; Eosinophils # (auto) 0.06 K/uL (0-0.5); Eosinophils % (auto) 0.3 %; Immature Granulocytes # (auto) 0.29 K/uL (0.00-0.02); Immature Granulocytes % (auto) 1.6 %; Lymphocytes # (auto) 0.39 K/uL (1.2-3.4); Lymphocytes % (auto) 2.1 %; Monocytes # (auto) 0.25 K/uL (0.11-0.59); Monocytes % (auto) 1.4 %; Neutrophils # (auto) 17.32 K/uL (1.4-6.5); Neutrophils % (auto) 94.5 %; Platelet Estimate SIGNIFIC DECREASED (Normal)
[2020-11-26] MEDS ORDERED: POTASSIUM CHLORIDE 20 MEQ/15 ML UDC PO STA (05:59)
--- NOTE | 2020-11-26 06:08 | Electrocardiogram Report ---
Test Reason : Blood Pressure : / mmHG Vent. Rate : 108 BPM Atrial Rate : 108 BPM P-R Int : 158 ms QRS Dur : 094 ms QT Int : 330 ms P-R-T Axes : 053 016 064 degrees QTc Int : 442 ms Sinus tachycardia Otherwise normal ECG When compared with ECG of 24-NOV-2020 10:33, ST no longer depressed in Anterior leads Nonspecific T wave abnormality no longer evident in Inferior leads T wave inversion no longer evident in Anterolateral leads Confirmed by Jonnathan Nielsen ([id number]) on 11/26/2020 6:07:32 AM Referred By: REFERRED SELF Confirmed By:Jonnathan Nielsen
[2020-11-26] MEDS: MAGNESIUM SULFATE / D5W 1 GM/100 ML BAG IV SCH ×2 (06:28→08:21)
--- NOTE | 2020-11-26 08:04 | Hospitalist Progress Note ---
Date of Service November 26, 2020 Assessment & Plan (1) Sepsis: (2) UTI (urinary tract infection): Urosepsis, septic shock , obstructive uropathy Gram-negative bacteremia/gram-negative sepsis Pt is a 70 y/o F with PMH HTN, HLD, Parkinson's, mild cognitive impairment, presented to ER with c/o weakness, lethargy, mental status change since afternoon day prior admission. In ER patient febrile with temp 38C rectally, P: 98, RR: 22, BP 71/42, 87% on room air WBC: 27, PLT: 92, INR: 1.4, BUN: 47, Cr: 3.8, lactate: 4.8, pro calcitonin > 200, UA: Consistent with UTI CXR: Suspected trace left pleural effusion with mild left basilar opacity that favors atelectasis. Cardiomegaly. Pulmonary vascular congestion In ER given Zosyn, IV Tylenol. Pt BP at 81/46 after 2L NSS bolus Pt with Victor placed in ER with no urine output -Obtained CT abdomen pelvis to rule out obstructing stone causing urosepsis and MIKE CT abdomen/ pelvis IMPRESSION: 1. A 4 mm obstructing stone within the distal right ureter resulting in mild to moderate right-sided hydronephrosis. 2. Right-sided nephrolithiasis. 3. No definite bowel wall thickening or obstruction. 4. Consolidation within the lungs posteriorly favors atelectasis. A pneumonia could also have a similar appearance. 4. Possible cholelithiasis. No gallbladder wall thickening. 6. The bladder is decompressed by Victor catheter. Obstructing ureteral stone A 4 mm obstructing stone within the distal right ureter resulting in mild to moderate right-sided hydronephrosis Urology consulted, for obstructing ureteral stone -Underwent emergent procedure, ureteral stents placed bilaterally (11/24) -She was then taken to ICU -Urine output min, urine is dark, bloody -Urology and nephrology following -Septic shock, hypotension, received several liters of fluid, started on Levophed in the ED -patient on Levophed and vasopressin, dobutamine -Lactic acid still elevated at 4 -care per ICU team -prognosis is guarded at this time Gram-negative bacteremia -Patient is currently on Zosyn -Continue to follow final cultures, one of the cultx : Klebsiella pneumoniae (pansensitive) but final cultx not available yet (3) Elevated troponin: Elevated troponin: 0.15. EKG sinus rhythm with nonspecific ST changes Probable demand ischemia -Trend troponin -monitor in ICU (4) MIKE (acute kidney injury): BUN: 47, Cr: 3.8. Baseline Cr: 0.8 -secondary to septick shock, dehydration, obstructing calculi, pyonephritis -Nephrology consulted and following Metabolic acidosis, patient started on bicarb Now off bicarb (11/26) (5) Abnormal coagulation profile: PT: 13.6, INR: 1.4. Probable secondary to sepsis -Monitor coags -Patient w/ thrombocytopenia, INR 1.7 (11/25),now Plt 14K and INR 1.2 (11/26) care per ICU, no plan for transfusion, FFP, hold chemoprophylaxis for DVT (6) HTN (hypertension): Currently hypotensive -Hold home amlodipine -Currently in ICU, requiring vasopressors (7) Parkinsons: Follows with [facility] Neurology -Held Sinemet on admission - resume per ICU team DVT Prophylaxis SCDs Full Code as per discussion with pt's Follows with Dr Martell for routine care Dispo: Transfer to [facility] Urine output minimal overnight and Cr increased to 4.6 ICU contacted enterprise resource planning consultant on-call, who recommends transfer for CRRT [facility] contacted (Dr. Magana) patient, and accepted the patient to their care Admission and Anticipated Discharge Date Admission Date: November 24, 2020 Subjective Patient seen in follow-up of urosepsis, septic shock, gram-negative bacteremia Underwent urologic procedure emergently on admission, ureteral stents placed bilaterally Currently on Levophed and vassopressin, dobutamin Patient was intubated yesterday Victor catheter is placed, dark urine, bloody Urine output minimal and Cr increased to 4.6 ICU contacted enterprise resource planning consultant on-call, who recommends transfer for CRRT [facility] contacted, and accepted the patient for transfer Patient is lying in bed, in ICU, sedated, intubated, sedated, family at the bedside Review of Systems Review of Systems: Unobtainable due to cognitive status and Unobtainable due to endotracheal tube She is intubated and sedated Physical Exam Physical Exam: General: obese elderly female, sedated and intubated Head: normocephalic, atraumatic Eyes: PERRL, EOM's intact, conjunctiva non-injected, anicteric Neck/chest: central line placed Lungs: + crackles, intubated on mech. vent. CV: RRR, no murmur, 2+ pretibial edema Abd: normal BS, soft, Ext:no erythema, edema b/l Neuro: sedated intubated Skin: warm, dry; sacrum with erythema and central eschar : Victor catheter, with dark urine, bloody Results & Data Results & Data ([facility]) Vital Signs (Past 12 Hours) Vital Signs Temp Pulse Resp BP Pulse Ox 11/26/20 07:50 84 20 95 11/26/20 05:30 85 112/58 L 95 11/26/20 05:09 91 H 24 92 11/26/20 05:01 89 11/26/20 05:00 89 129/65 94 11/26/20 04:31 85 93 11/26/20 04:30 84 112/57 L 93 11/26/20 04:00 36.3 C L 88 111/59 L 92 11/26/20 03:31 86 91 11/26/20 03:30 90 123/61 93 11/26/20 03:25 85 21 93 11/26/20 03:01 87 93 11/26/20 03:00 86 115/57 L 93 11/26/20 02:30 88 115/59 L 94 11/26/20 02:01 90 93 11/26/20 02:00 92 H 118/60 93 11/26/20 01:31 91 H 93 11/26/20 01:30 90 118/59 L 93 11/26/20 01:01 94 H 92 11/26/20 01:00 93 H 115/60 92 11/26/20 00:31 91 H 92 11/26/20 00:30 88 112/59 L 93 11/26/20 00:01 93 H 93 11/26/20 00:00 36.6 C 95 H 116/63 93 11/25/20 23:31 95 H 92 11/25/20 23:30 94 H 111/56 L 92 11/25/20 23:01 94 H 92 11/25/20 23:00 91 H 98/58 L 92 11/25/20 22:40 94 H 23 92 11/25/20 22:31 95 H 92 11/25/20 22:30 95 H 110/59 L 92 11/25/20 22:01 96 H 92 11/25/20 22:00 95 H 100/60 92 11/25/20 21:31 96 H 92 11/25/20 21:30 96 H 108/62 92 11/25/20 21:01 95 H 93 11/25/20 21:00 93 H 100/57 L 93 11/25/20 20:59 20 11/25/20 20:31 97 H 93 11/25/20 20:30 97 H 104/59 L 93 Laboratory Results 11/26/20 11/26/20 11/26/20 Range/Units 05:21 04:57 04:49 WBC (4.8-10.8) K/uL RBC (4.2-5.4) M/uL Hgb (12.0-16.0) g/dL Hct (37-47) % MCV (80-100) fL MCH (25-34) pg MCHC (32-36) g/dL RDW Std Deviation (36.4-46.3) fL RDW Coeff of Donato (11.5-14.5) % Plt Count (130-400) K/uL Immature Gran % (Auto) % Neut % (Auto) % Lymph % (Auto) % Davidson % (Auto) % Eos % (Auto) % Baso % (Auto) % Neut # (Auto) (1.4-6.5) K/uL Lymph # (Auto) (1.2-3.4) K/uL Davidson # (Auto) (0.11-0.59) K/uL Eos # (Auto) (0-0.5) K/uL Baso # (Auto) (0-0.2) K/uL Immature Gran # (Auto) (0.00-0.02) K/uL Dohle Bodies Platelet Estimate (Normal) PT (9.0-12.0) Seconds INR (0.9-1.1) POC pH 7.43 (7.35-7.45) POC pCO2 36 (35-46) mmHg POC pO2 72 L (80-95) mmHg POC HCO3 24 (19-24) taylor/L POC Total CO2 25 (24-31) mmol/L POC Base Excess 0.0 (-9-1.8) taylor/L POC ABG O2 Sat 95.0 (90-95) % Sodium 135 L (136-145) mmol/L Potassium 3.0 L D (3.5-5.1) mmol/L Chloride 98 (98-107) mmol/L Carbon Dioxide 25 (21-32) mmol/L Anion Gap 12.0 H (3-11) BUN 59 H (7-18) mg/dl Creatinine 4.61 H* D (0.6-1.2) mg/dl Est Cr Clr Drug Dosing 13.4 ml/min Est GFR ( Amer) 10.3 ml/min Est GFR (Non-Af Amer) 8.9 ml/min BUN/Creatinine Ratio 12.7 (10-20) Glucose 143 H (70-99) mg/dl POC Glucose (70-99) mg/dl POC Glucose (other) 141 H (70-99) mg/dl Lactate (0.4-2.0) mmol/L Calcium 6.7 L (8.5-10.1) mg/dl Ionized Calcium (1.12-1.32) mmol/L Phosphorus 3.8 D (2.5-4.9) mg/dl Magnesium 1.6 L (1.8-2.4) mg/dl Stl C. diff Tox B Gene (Neg) 11/26/20 11/26/20 11/26/20 Range/Units 04:49 04:49 00:36 WBC 18.32 H (4.8-10.8) K/uL RBC 3.66 L (4.2-5.4) M/uL Hgb 10.4 L (12.0-16.0) g/dL Hct 29.7 L (37-47) % MCV 81.1 (80-100) fL MCH 28.4 (25-34) pg MCHC 35.0 (32-36) g/dL RDW Std Deviation 46.2 (36.4-46.3) fL RDW Coeff of Donato 15.5 H (11.5-14.5) % Plt Count 14 L* D (130-400) K/uL Immature Gran % (Auto) 1.6 % Neut % (Auto) 94.5 % Lymph % (Auto) 2.1 % Davidson % (Auto) 1.4 % Eos % (Auto) 0.3 % Baso % (Auto) 0.1 % Neut # (Auto) 17.32 H (1.4-6.5) K/uL Lymph # (Auto) 0.39 L (1.2-3.4) K/uL Davidson # (Auto) 0.25 (0.11-0.59) K/uL Eos # (Auto) 0.06 (0-0.5) K/uL Baso # (Auto) 0.01 (0-0.2) K/uL Immature Gran # (Auto) 0.29 H (0.00-0.02) K/uL Dohle Bodies 1+ Platelet Estimate SIGNIFIC DECREASED (Normal) PT 11.8 (9.0-12.0) Seconds INR 1.2 H (0.9-1.1) POC pH (7.35-7.45) POC pCO2 (35-46) mmHg POC pO2 (80-95) mmHg POC HCO3 (19-24) taylor/L POC Total CO2 (24-31) mmol/L POC Base Excess (-9-1.8) taylor/L POC ABG O2 Sat (90-95) % Sodium (136-145) mmol/L Potassium (3.5-5.1) mmol/L Chloride (98-107) mmol/L Carbon Dioxide (21-32) mmol/L Anion Gap (3-11) BUN (7-18) mg/dl Creatinine (0.6-1.2) mg/dl Est Cr Clr Drug Dosing ml/min Est GFR ( Amer) ml/min Est GFR (Non-Af Amer) ml/min BUN/Creatinine Ratio (10-20) Glucose (70-99) mg/dl POC Glucose (70-99) mg/dl POC Glucose (other) 146 H (70-99) mg/dl Lactate (0.4-2.0) mmol/L Calcium (8.5-10.1) mg/dl Ionized Calcium (1.12-1.32) mmol/L Phosphorus (2.5-4.9) mg/dl Magnesium (1.8-2.4) mg/dl Stl C. diff Tox B Gene (Neg) 11/25/20 11/25/20 11/25/20 Range/Units 20:54 20:05 18:03 WBC (4.8-10.8) K/uL RBC (4.2-5.4) M/uL Hgb (12.0-16.0) g/dL Hct (37-47) % MCV (80-100) fL MCH (25-34) pg MCHC (32-36) g/dL RDW Std Deviation (36.4-46.3) fL RDW Coeff of Donato (11.5-14.5) % Plt Count (130-400) K/uL Immature Gran % (Auto) % Neut % (Auto) % Lymph % (Auto) % Davidson % (Auto) % Eos % (Auto) % Baso % (Auto) % Neut # (Auto) (1.4-6.5) K/uL Lymph # (Auto) (1.2-3.4) K/uL Davidson # (Auto) (0.11-0.59) K/uL Eos # (Auto) (0-0.5) K/uL Baso # (Auto) (0-0.2) K/uL Immature Gran # (Auto) (0.00-0.02) K/uL Dohle Bodies Platelet Estimate (Normal) PT (9.0-12.0) Seconds INR (0.9-1.1) POC pH 7.44 (7.35-7.45) POC pCO2 31 L (35-46) mmHg POC pO2 86 (80-95) mmHg POC HCO3 21 (19-24) taylor/L POC Total CO2 22 L (24-31) mmol/L POC Base Excess -4.0 (-9-1.8) taylor/L POC ABG O2 Sat 97.0 H (90-95) % Sodium (136-145) mmol/L Potassium (3.5-5.1) mmol/L Chloride (98-107) mmol/L Carbon Dioxide (21-32) mmol/L Anion Gap (3-11) BUN (7-18) mg/dl Creatinine (0.6-1.2) mg/dl Est Cr Clr Drug Dosing ml/min Est GFR ( Amer) ml/min Est GFR (Non-Af Amer) ml/min BUN/Creatinine Ratio (10-20) Glucose (70-99) mg/dl POC Glucose (70-99) mg/dl POC Glucose (other) 169 H 176 H (70-99) mg/dl Lactate (0.4-2.0) mmol/L Calcium (8.5-10.1) mg/dl Ionized Calcium (1.12-1.32) mmol/L Phosphorus (2.5-4.9) mg/dl Magnesium (1.8-2.4) mg/dl Stl C. diff Tox B Gene (Neg) 11/25/20 11/25/20 11/25/20 Range/Units 13:06 12:22 12:07 WBC (4.8-10.8) K/uL RBC (4.2-5.4) M/uL Hgb (12.0-16.0) g/dL Hct (37-47) % MCV (80-100) fL MCH (25-34) pg MCHC (32-36) g/dL RDW Std Deviation (36.4-46.3) fL RDW Coeff of Donato (11.5-14.5) % Plt Count (130-400) K/uL Immature Gran % (Auto) % Neut % (Auto) % Lymph % (Auto) % Davidson % (Auto) % Eos % (Auto) % Baso % (Auto) % Neut # (Auto) (1.4-6.5) K/uL Lymph # (Auto) (1.2-3.4) K/uL Davidson # (Auto) (0.11-0.59) K/uL Eos # (Auto) (0-0.5) K/uL Baso # (Auto) (0-0.2) K/uL Immature Gran # (Auto) (0.00-0.02) K/uL Dohle Bodies Platelet Estimate (Normal) PT (9.0-12.0) Seconds INR (0.9-1.1) POC pH 7.41 (7.35-7.45) POC pCO2 29 L (35-46) mmHg POC pO2 76 L (80-95) mmHg POC HCO3 19 (19-24) taylor/L POC Total CO2 20 L (24-31) mmol/L POC Base Excess -6.0 (-9-1.8) taylor/L POC ABG O2 Sat 95.0 (90-95) % Sodium 137 (136-145) mmol/L Potassium 4.0 (3.5-5.1) mmol/L Chloride 103 (98-107) mmol/L Carbon Dioxide 20 L (21-32) mmol/L Anion Gap 14.0 H (3-11) BUN 55 H (7-18) mg/dl Creatinine 4.27 H (0.6-1.2) mg/dl Est Cr Clr Drug Dosing 14.5 ml/min Est GFR ( Amer) 11.3 ml/min Est GFR (Non-Af Amer) 9.7 ml/min BUN/Creatinine Ratio 12.9 (10-20) Glucose 196 H (70-99) mg/dl POC Glucose (70-99) mg/dl POC Glucose (other) 195 H (70-99) mg/dl Lactate (0.4-2.0) mmol/L Calcium 7.3 L (8.5-10.1) mg/dl Ionized Calcium (1.12-1.32) mmol/L Phosphorus (2.5-4.9) mg/dl Magnesium (1.8-2.4) mg/dl Stl C. diff Tox B Gene (Neg) 11/25/20 11/25/20 11/25/20 Range/Units 10:43 09:20 09:19 WBC (4.8-10.8) K/uL RBC (4.2-5.4) M/uL Hgb (12.0-16.0) g/dL Hct (37-47) % MCV (80-100) fL MCH (25-34) pg MCHC (32-36) g/dL RDW Std Deviation (36.4-46.3) fL RDW Coeff of Donato (11.5-14.5) % Plt Count (130-400) K/uL Immature Gran % (Auto) % Neut % (Auto) % Lymph % (Auto) % Davidson % (Auto) % Eos % (Auto) % Baso % (Auto) % Neut # (Auto) (1.4-6.5) K/uL Lymph # (Auto) (1.2-3.4) K/uL Davidson # (Auto) (0.11-0.59) K/uL Eos # (Auto) (0-0.5) K/uL Baso # (Auto) (0-0.2) K/uL Immature Gran # (Auto) (0.00-0.02) K/uL Dohle Bodies Platelet Estimate (Normal) PT (9.0-12.0) Seconds INR (0.9-1.1) POC pH 7.26 L 7.26 L (7.35-7.45) POC pCO2 47 H 45 (35-46) mmHg POC pO2 108 H 75 L (80-95) mmHg POC HCO3 21 20 (19-24) taylor/L POC Total CO2 22 L 21 L (24-31) mmol/L POC Base Excess -6.0 -7.0 (-9-1.8) taylor/L POC ABG O2 Sat 97.0 H 92.0 (90-95) % Sodium (136-145) mmol/L Potassium (3.5-5.1) mmol/L Chloride (98-107) mmol/L Carbon Dioxide (21-32) mmol/L Anion Gap (3-11) BUN (7-18) mg/dl Creatinine (0.6-1.2) mg/dl Est Cr Clr Drug Dosing ml/min Est GFR ( Amer) ml/min Est GFR (Non-Af Amer) ml/min BUN/Creatinine Ratio (10-20) Glucose (70-99) mg/dl POC Glucose 191 H (70-99) mg/dl POC Glucose (other) (70-99) mg/dl Lactate (0.4-2.0) mmol/L Calcium (8.5-10.1) mg/dl Ionized Calcium (1.12-1.32) mmol/L Phosphorus (2.5-4.9) mg/dl Magnesium (1.8-2.4) mg/dl Stl C. diff Tox B Gene (Neg) 11/25/20 11/25/20 11/25/20 Range/Units 08:48 08:48 08:48 WBC (4.8-10.8) K/uL RBC (4.2-5.4) M/uL Hgb (12.0-16.0) g/dL Hct (37-47) % MCV (80-100) fL MCH (25-34) pg MCHC (32-36) g/dL RDW Std Deviation (36.4-46.3) fL RDW Coeff of Donato (11.5-14.5) % Plt Count (130-400) K/uL Immature Gran % (Auto) % Neut % (Auto) % Lymph % (Auto) % Davidson % (Auto) % Eos % (Auto) % Baso % (Auto) % Neut # (Auto) (1.4-6.5) K/uL Lymph # (Auto) (1.2-3.4) K/uL Davidson # (Auto) (0.11-0.59) K/uL Eos # (Auto) (0-0.5) K/uL Baso # (Auto) (0-0.2) K/uL Immature Gran # (Auto) (0.00-0.02) K/uL Dohle Bodies Platelet Estimate (Normal) PT (9.0-12.0) Seconds INR (0.9-1.1) POC pH (7.35-7.45) POC pCO2 (35-46) mmHg POC pO2 (80-95) mmHg POC HCO3 (19-24) taylor/L POC Total CO2 (24-31) mmol/L POC Base Excess (-9-1.8) taylor/L POC ABG O2 Sat (90-95) % Sodium 136 (136-145) mmol/L Potassium 4.2 (3.5-5.1) mmol/L Chloride 103 (98-107) mmol/L Carbon Dioxide 20 L (21-32) mmol/L Anion Gap 13.0 H (3-11) BUN 53 H (7-18) mg/dl Creatinine 4.29 H (0.6-1.2) mg/dl Est Cr Clr Drug Dosing 14.1 ml/min Est GFR ( Amer) 11.2 ml/min Est GFR (Non-Af Amer) 9.7 ml/min BUN/Creatinine Ratio 12.2 (10-20) Glucose 201 H (70-99) mg/dl POC Glucose (70-99) mg/dl POC Glucose (other) (70-99) mg/dl Lactate 3.9 H* (0.4-2.0) mmol/L Calcium 7.2 L (8.5-10.1) mg/dl Ionized Calcium 0.92 L (1.12-1.32) mmol/L Phosphorus (2.5-4.9) mg/dl Magnesium (1.8-2.4) mg/dl Stl C. diff Tox B Gene (Neg) 11/25/20 Range/Units 08:00 WBC (4.8-10.8) K/uL RBC (4.2-5.4) M/uL Hgb (12.0-16.0) g/dL Hct (37-47) % MCV (80-100) fL MCH (25-34) pg MCHC (32-36) g/dL RDW Std Deviation (36.4-46.3) fL RDW Coeff of Donato (11.5-14.5) % Plt Count (130-400) K/uL Immature Gran % (Auto) % Neut % (Auto) % Lymph % (Auto) % Davidson % (Auto) % Eos % (Auto) % Baso % (Auto) % Neut # (Auto) (1.4-6.5) K/uL Lymph # (Auto) (1.2-3.4) K/uL Davidson # (Auto) (0.11-0.59) K/uL Eos # (Auto) (0-0.5) K/uL Baso # (Auto) (0-0.2) K/uL Immature Gran # (Auto) (0.00-0.02) K/uL Dohle Bodies Platelet Estimate (Normal) PT (9.0-12.0) Seconds INR (0.9-1.1) POC pH (7.35-7.45) POC pCO2 (35-46) mmHg POC pO2 (80-95) mmHg POC HCO3 (19-24) taylor/L POC Total CO2 (24-31) mmol/L POC Base Excess (-9-1.8) taylor/L POC ABG O2 Sat (90-95) % Sodium (136-145) mmol/L Potassium (3.5-5.1) mmol/L Chloride (98-107) mmol/L Carbon Dioxide (21-32) mmol/L Anion Gap (3-11) BUN (7-18) mg/dl Creatinine (0.6-1.2) mg/dl Est Cr Clr Drug Dosing ml/min Est GFR ( Amer) ml/min Est GFR (Non-Af Amer) ml/min BUN/Creatinine Ratio (10-20) Glucose (70-99) mg/dl POC Glucose (70-99) mg/dl POC Glucose (other) (70-99) mg/dl Lactate (0.4-2.0) mmol/L Calcium (8.5-10.1) mg/dl Ionized Calcium (1.12-1.32) mmol/L Phosphorus (2.5-4.9) mg/dl Magnesium (1.8-2.4) mg/dl Stl C. diff Tox B Gene Negative Cdiff Gene (Neg) Medications Administered Current Inpatient Medications Fentanyl Citrate (Fentanyl Bolus From Bag) 50 mcg IV Q60M PRN PRN Reason: Pain or Agitation Stop: 12/09/20 11:14 Norepinephrine Bitartrate (Levophed/D5w) 8 mg in 508 mls @ 26.217 mls/hr IV .[id number] [facility]; Protocol Stop: 12/24/20 13:59 Last Titration: 11/26/20 07:09 Dose: 0.07 mcg/kg/min, 26.2 mls/hr Documented by: Pantoprazole Sodium 40 mg/ (Syringe) 10 mls @ 5 mls/min IV DAILY@1100 [facility] Stop: 11/28/20 11:01 Last Admin: 11/25/20 11:31 Dose: 5 mls/min Documented by: Vasopressin 20 units/ Sodium (Chloride) 101 mls @ 12.12 mls/hr IV .[id number] [facility] Stop: 12/24/20 19:14 Last Infusion: 11/26/20 07:09 Dose: 0.04 unit/min, 12.1 mls/hr Documented by: Piperacillin Sod/Tazobactam (Sod 4.5 gm/ Dextrose) 120 mls @ 30 mls/hr IV Q12H [facility]; Protocol Stop: 12/03/20 19:59 Last Infusion: 11/26/20 07:15 Dose: Infused Documented by: Propofol (Diprivan) 1,000 mg in 100 mls @ 9.306 mls/hr IV .[id number] [facility]; Protocol Stop: 11/28/20 11:14 Last Titration: 11/26/20 07:09 Dose: 15 mcg/kg/min, 9.3 mls/hr Documented by: Midazolam HCl (Versed) 125 mg in 250 mls @ 2 mls/hr IV .Q96H [facility]; Protocol Stop: 12/25/20 11:14 Last Admin: 11/25/20 17:12 Dose: Not Given Documented by: Fentanyl Citrate (Fentanyl Drip) 1,250 mcg in 250 mls @ 5 mls/hr IV .Q50H [facility]; Protocol Stop: 12/09/20 11:14 Last Admin: 11/25/20 17:12 Dose: Not Given Documented by: Dobutamine HCl 500 mg/ (Dextrose) 250 mls @ 7.755 mls/hr IV .Q24H [facility]; Protocol Stop: 12/25/20 16:29 Last Titration: 11/26/20 07:09 Dose: 2.5 mcg/kg/min, 7.8 mls/hr Documented by: Magnesium Sulfate/Dextrose (Magnesium Sulfate / D5w) 1 gm in 100 mls @ 50 mls/hr IV Q2H [facility] Stop: 11/26/20 09:58 Last Admin: 11/26/20 06:28 Dose: 50 mls/hr Documented by: Midazolam HCl (Midazolam Bolus From Bag) 2 mg IV Q60M PRN PRN Reason: Sedation Stop: 12/25/20 11:14 Miscellaneous ([facility] Protocol For Hyperglycemia) 1 ea N/A PRN PRN; Protocol PRN Reason: Hyperglycemia Protocol Stop: 11/26/20 15:36 Miscellaneous Information (Piperacill/Tazobac Consult Active) 1 ea N/A UD PRN PRN Reason: Consult Stop: 12/24/20 10:33 Propofol (Propofol Bolus From Bag) 20 mg IV Q5M PRN PRN Reason: Sedation Stop: 11/28/20 11:14 (1) UTI (urinary tract infection) Urinary tract infection type: site unspecified (2) Sepsis Acute renal failure type: unspecified Sepsis acute organ dysfunction status: with acute organ dysfunction Sepsis type: sepsis due to unspecified organism Severe sepsis acute organ dysfunction type: acute renal failure Severe sepsis shock status: with septic shock Qualified Code(s): A41.9 - Sepsis, unspecified organism; R65.21 - Severe sepsis with septic shock; N17.9 - Acute kidney failure, unspecified
--- NOTE | 2020-11-26 08:59 | Discharge Summary ---
Date of Service November 26, 2020 Admission HPI Per Admitting Provider Pt is 70 y/o F with PMH HTN, HLD, Parkinson's, mild cognitive impairment, presented to ER with c/o weakness, lethargy, mental status change since yesterday. Majority of history obtained from patient's secondary to patient's current condition. Patient's reports patient was in normal health yesterday morning and went to the [employer]. He states when he came home from work 6 hours later patient was sitting in her chair however was slumped over in chair. He reports that she was slow to respond and he thought she had some slurred speech. He states he tried to get her to the bathroom and she was staggering and having difficulty ambulating. He reports patient does not use any assistive devices for ambulation at baseline. He was able to get patient back in chair where she normally sleeps. Upon awakening this morning patient appeared more lethargic and had continued slow responses and EMS was called. In route EMS reported patient hypotensive. Patient currently complaining of back pain. She is alert to person place and year, and is slow to respond. Denies shortness of breath or chest pain or headache. reports patient with chronic postnasal drip and cough in the mornings however denies any noted increased cough. He is unaware of any fevers or chills or vomiting. He reports her last known BM was yesterday. Patient received second COVID-19 vaccination 4 days ago. Denies any known history of kidney stones in the past. reports patient normally needs to sit on toilet a while before she can urinate, he did not notice any blood in her urine when he took her to the bathroom yesterday. He does not think patient urinated since yesterday evening. Last ate breakfast yesterday. Last medications taken were yesterday morning. Denies recent travel, ill contacts. Admission Exam Per Admitting Provider General: obese elderly female, +ill appearing Head: normocephalic, atraumatic Eyes: PERRL, EOM's intact, conjunctiva non-injected, anicteric ENT: normal inspection external ears, nose, mucous membranes dry Neck: supple, trachea midline Lungs: On 4L oxygen via NC with sat 98%, appear clear, no respiratory distress, no wheezing/rhonchi/rales CV: RRR, rate 98, no murmur, 2+ pretibial edema Abd: normal BS, soft, non-tender, no apparent CVA tenderness to palpation Ext: no cyanosis, no erythema Neuro: Alert, oriented to self, place and year however with slow responses Skin: warm, dry; sacrum with erythema and central eschar Principal Diagnosis Severe sepsis, septic shock UTI Gram-negative bacteremia Obstructive uropathy MIKE Coagulopathy, elevated INR Thrombocytopenia Discharge Exam General: obese elderly female, sedated and intubated Head: normocephalic, atraumatic Eyes: PERRL, EOM's intact, conjunctiva non-injected, anicteric Neck/chest: central line placed Lungs: + crackles, intubated on mech. vent. CV: RRR, no murmur, 2+ pretibial edema Abd: normal BS, soft, Ext:no erythema, edema b/l Neuro: sedated intubated Skin: warm, dry; sacrum with erythema and central eschar : Victor catheter, with dark urine, bloody Discharge Data Allergies Allergy/AdvReac Type Severity Reaction Status Date / Time No Known Allergies Allergy Unverified 11/24/20 13:15 Consultations 11/24/20 12:37 ED Decision to Admit Stat 11/24/20 15:37 Consult [employer] Manager Routine Consult Nephrology Routine Consult Urology Stat 11/26/20 08:21 Burn CD for patient Stat Procedures Performed Operation Date: 11/24/20 07:00 Actual Procedures p Cystoscopy, Bilateral Stent Insertion(Not Applicable) - Edouard Kowalski MD Ordered Studies 11/24/20 12:55 CT abd pelvis wo con Stat FINDINGS: There are few small right renal calculi with the largest in the lower pole measuring 5 mm. Mild bilateral perinephric edema/fat stranding, right greater the left. There appear to be bilateral peripelvic cysts. There is also a 1.5 cm right exophytic hypodense lesion within the right kidney likely representing a cyst. There is mild to moderate right-sided hydroureteronephrosis secondary to an obstructing 4 mm stone within the distal right ureter best seen on image 388. This is immediately proximal to the right ureterovesical junction. The bladder is decompressed by Victor catheter. No left-sided hydronephrosis. Calcified granuloma seen within the base of the left lower lobe. There are patchy densities within the lungs posteriorly. This favors atelectasis/dependent change. No pneumoperitoneum. No pneumatosis. No suspicious lytic or blastic osseous lesions. There is a small fat-containing umbilical hernia. The uterus and bilateral adnexa are within normal limits. No pelvic free fluid. Suboptimal evaluation for bowel pathology due to the lack of intravenous and oral contrast. However, there is no definite bowel wall thickening or obstruction. Normal appendix. Layering density within the gallbladder favors small stones. The unenhanced liver, spleen, and pancreas are unremarkable. No retroperitoneal lymphadenopathy. Normal right adrenal gland. There is nodular thickening of the left adrenal gland. IMPRESSION: 1. A 4 mm obstructing stone within the distal right ureter resulting in mild to moderate right-sided hydronephrosis. 2. Right-sided nephrolithiasis. 3. No definite bowel wall thickening or obstruction. 4. Consolidation within the lungs posteriorly favors atelectasis. A pneumonia could also have a similar appearance. 4. Possible cholelithiasis. No gallbladder wall thickening. 6. The bladder is decompressed by Victor catheter. 11/24/20 14:14 FL KUB Routine Hospital Course (1) Sepsis: (2) UTI (urinary tract infection): Urosepsis, septic shock , obstructive uropathy Gram-negative bacteremia/gram-negative sepsis Pt is a 70 y/o F with PMH HTN, HLD, Parkinson's, mild cognitive impairment, presented to ER with c/o weakness, lethargy, mental status change since afternoon day prior admission. In ER patient febrile with temp 38C rectally, P: 98, RR: 22, BP 71/42, 87% on room air WBC: 27, PLT: 92, INR: 1.4, BUN: 47, Cr: 3.8, lactate: 4.8, pro calcitonin > 200, UA: Consistent with UTI CXR: Suspected trace left pleural effusion with mild left basilar opacity that favors atelectasis. Cardiomegaly. Pulmonary vascular congestion In ER given Zosyn, IV Tylenol. Pt BP at 81/46 after 2L NSS bolus Pt with Victor placed in ER with no urine output -Obtained CT abdomen pelvis to rule out obstructing stone causing urosepsis and MIKE CT abdomen/ pelvis IMPRESSION: 1. A 4 mm obstructing stone within the distal right ureter resulting in mild to moderate right-sided hydronephrosis. 2. Right-sided nephrolithiasis. 3. No definite bowel wall thickening or obstruction. 4. Consolidation within the lungs posteriorly favors atelectasis. A pneumonia could also have a similar appearance. 4. Possible cholelithiasis. No gallbladder wall thickening. 6. The bladder is decompressed by Victor catheter. Obstructing ureteral stone A 4 mm obstructing stone within the distal right ureter resulting in mild to moderate right-sided hydronephrosis Urology consulted, for obstructing ureteral stone -Underwent emergent procedure, ureteral stents placed bilaterally (11/24) -She was then taken to ICU -Urine output min, urine is dark, bloody -Urology and nephrology following -Septic shock, hypotension, received several liters of fluid, started on Levophed in the ED -patient on Levophed and vasopressin, dobutamine -Lactic acid still elevated at 4 -care per ICU team -prognosis is guarded at this time Gram-negative bacteremia -Patient is currently on Zosyn -Continue to follow final cultures, one of the cultx : Klebsiella pneumoniae (pansensitive) but final cultx not available yet (3) Elevated troponin: Elevated troponin: 0.15. EKG sinus rhythm with nonspecific ST changes Probable demand ischemia -Trend troponin -monitor in ICU (4) MIKE (acute kidney injury): BUN: 47, Cr: 3.8. Baseline Cr: 0.8 -secondary to septick shock, dehydration, obstructing calculi, pyonephritis -Nephrology consulted and following - now Cr 4.6 (11/26/20) Metabolic acidosis, patient started on bicarb Now off bicarb (11/26) (5) Abnormal coagulation profile: PT: 13.6, INR: 1.4. Probable secondary to sepsis -Monitor coags -Patient w/ thrombocytopenia, INR 1.7 (11/25),now Plt 14K and INR 1.2 (11/26) care per ICU, no plan for transfusion, FFP, hold chemoprophylaxis for DVT (6) HTN (hypertension): Currently hypotensive -Hold home amlodipine -Currently in ICU, requiring vasopressors (7) Parkinsons: Follows with [facility] -Held Sinemet on admission - resume per ICU team DVT Prophylaxis SCDs Full Code as per discussion with pt's Follows with Dr Martell for routine care Dispo: Transfer to [facility] Urine output minimal overnight and Cr increased to 4.6 ICU contacted manager learning on-call, who recommends transfer for CRRT [facility] contacted (Dr. Magana) patient, and accepted the patient to their care Total Time Total Time Spent Total Time Spent (In Minutes): 60 Total Time Includes: Examination of the Patient, Discharge Planning, Medication Reconciliation and Communication With Other Providers Discharge Plan Discharge Items Patient Disposition: Transfer Acute Care Hospital Reason For Visit: SEVERE SEPSIS Discharge Diagnosis: Severe sepsis, septic shock UTI Gram-negative bacteremia Obstructive uropathy MIKE Coagulopathy, elevated INR Thrombocytopenia Activity: Per Instructions section Non-emergency contact: Hospitalist and Specialist Call non-emergency contact if: you have any medication questions and your symptoms worsen Follow-up/Referrals: Konstantin Martell MD [Primary Care Provider] - Diet: Other - See Diet Comment Addtl Attending Provider Instructions: Patient admitted with septic shock, urosepsis, underwent ureteral stent placement on admission on November 24. Due to hypotension, required Levophed, now also on vasopressin and dobutamine. She is intubated and sedated. Patient has minimal urine output, and creatinine increased to 4.6. Discussed further with nephrology, and recommend transfer to tertiary care center for CRRT. Contacted [facility], and discussed with Dr. Magana, sales support associate, who accepted the patient to their care. Pending Studies at Discharge: Yes Studies:: Final blood cultures, urine cultures Stand-Alone Forms: My [facility] Skilled Items Patient informed of condition?: No DNR: No Discharge Level of Care: Other Communicable Disease: No Discharge Prognosis: Deteriorating Lines: Peripheral IV Urinary Catheter: Yes Medications and DC Order Prescriptions: Continued atorvastatin 20 mg tablet 20 mg PO DAILY RF: 0 alendronate 70 mg tablet 70 mg PO WK RF: 0 carbidopa-levodopa 25-100 mg tablet 1 tab PO TID RF: 0 Discontinued amlodipine 5 mg tablet 5 mg PO DAILY RF: 0 Discharge Orders: Discharge Order (Routine); Ordered 11/26/20 Ordered By: Pollo Apple Admission Data Admit Date/Time: 11/24/20 13:36 Attending Provider: Pollo Apple Admit Provider: Lory Michel Primary Care Provider: Konstantin Martell Other Providers: Lory Michel ; Edouard Kowalski ; Paco Mueller ; Carine Joshua
--- NOTE | 2020-11-26 09:10 | Critical Care Progress Note ---
Date of Service November 26, 2020 Assessment & Plan (1) Sepsis: (2) Hydronephrosis concurrent with and due to calculi of kidney and ureter: (3) MIKE (acute kidney injury): (4) Lactic acidosis: (5) Coagulopathy: Impression: 70-year-old female with Parkinson's hypertension hyperlipi demia now with pyelonephritis, hydronephrosis, acute renal failure, and a distal right obstructing nephrolithiasis. She has gram-negative rods and severe sepsis with septic shock with acute renal failure 24-hour events: Patient developed progressive metabolic and respiratory acidosis. She was attempted on non.invasive positive pressure ventilation but failed and was subsequently intubated. Echocardiogram was performed which revealed an EF of 35% with global hypokinesis. Dobutamine at 2.5 mics per kilo per minute was initiated. She has been stable with regards to her pressor requirement but unfortunately has not made any significant urine. Recommendations: 1. Neurologic: Continue sedation with propofol, fentanyl, and Versed may con hearing aid repairer restarting her parkinsonian medications when oral medications are feasible. Pain control as needed postoperatively. 2. Cardiovascular: Septic shock due to pyelonephritis and infected nephroli thiasis. Appears adequately fluid resuscitated. Continue to wean pressors. Random cortisol was normal. Check echocardiogram 3. Pulmonary: Intubated due to respiratory acidosis and hypoxemic respiratory failure. Oxygenating and ventilating adequately currently. Continue current vent settings. 4. Renal: Acute renal failure secondary to ATN/hypoperfusion as well as obstructive uropathy status post bilateral stent placement. Discussed with neurology. I think the patient likely requires renal replacement given her acidosis and fluid overload. Given her hemodynamic instability, conventional dialysis is not possible and would recommend CVVH. This is not available at our facility and she will be transferred to a higher level of care. 5. ID: Pyelonephritis, gram-negative carolyn bacteremia. Urine culture growing Klebsiella distant to Macrodantin otherwise sensitive. Continue Zosyn dosed by pharmacy for now. Await blood cultures. Will follow pro calcitonin white blood cell count. Recheck surveillance cultures today 6. GI: Keep n.p.o. at this point time until her hemodynamics improve 7. Endocrine: Glycemic control per ICU protocol. Random cortisol was appropriate. 8. Heme-onc: leukocytosis secondary to sepsis. Hemoglobin hematocrit are currently stable. Platelet likely secondary to sepsis. We will continue to follow at this point time. No indication for transfusions from my standpoint when she drops below 10. No evidence of bleeding so we will hold on platelet transfusion. No suspicion for HIT. She is mildly coagulopathic with an elevated INR. She will likely need an HD cath however will defer as she is being transferred to a higher level of care we will hold DVT prophylaxis given her low platelets and elevated INR Discussed with ICU nurse as well as family at bedside. Also discussed with urology. 40 minutes critical care time at this point in time. Patient suffers from potential life and limb threatening illness. Discussed with patient and bedside critical care nurse. Admission and Anticipated Discharge Date Admission Date: November 24, 2020 Subjective intubated and sedated Review of Systems Review of Systems: Unobtainable due to endotracheal tube Physical Exam Constitutional: + mechanically ventilated Neck: trachea midline, no thyromegaly Respiratory: normal respiratory effort; no respiratory distress Auscultation: + crackles Cardiovascular: Rate/Rhythm: + tachycardic Heart Sounds: normal S1 and normal S2; no murmur Extremities: no edema Gastrointestinal (Abdomen): normal bowel sounds, soft, nontender, no hepatosplenomegaly Musculoskeletal: Extremities: extremities normal to inspection Skin: no rashes, warm and dry Lymphatic: no cervical lymphadenopathy Results & Data Results & Data ([facility]) Vital Signs (Past 12 Hours) Vital Signs Temp Pulse Resp BP Pulse Ox 11/26/20 07:50 84 20 95 11/26/20 05:30 85 112/58 L 95 11/26/20 05:09 91 H 24 92 11/26/20 05:01 89 11/26/20 05:00 89 129/65 94 11/26/20 04:31 85 93 11/26/20 04:30 84 112/57 L 93 11/26/20 04:00 36.3 C L 88 111/59 L 92 11/26/20 03:31 86 91 11/26/20 03:30 90 123/61 93 11/26/20 03:25 85 21 93 11/26/20 03:01 87 93 11/26/20 03:00 86 115/57 L 93 11/26/20 02:30 88 115/59 L 94 11/26/20 02:01 90 93 11/26/20 02:00 92 H 118/60 93 11/26/20 01:31 91 H 93 05/23/21 01:30 90 118/59 L 93 11/26/20 01:01 94 H 92 11/26/20 01:00 93 H 115/60 92 11/26/20 00:31 91 H 92 11/26/20 00:30 88 112/59 L 93 11/26/20 00:01 93 H 93 11/26/20 00:00 36.6 C 95 H 116/63 93 11/25/20 23:31 95 H 92 11/25/20 23:30 94 H 111/56 L 92 11/25/20 23:01 94 H 92 11/25/20 23:00 91 H 98/58 L 92 11/25/20 22:40 94 H 23 92 11/25/20 22:31 95 H 92 11/25/20 22:30 95 H 110/59 L 92 11/25/20 22:01 96 H 92 11/25/20 22:00 95 H 100/60 92 11/25/20 21:31 96 H 92 11/25/20 21:30 96 H 108/62 92 Critical Care Results & Data Vital Signs (Past 12 Hours) Vital Signs Temp Pulse Resp BP Pulse Ox 11/26/20 07:50 84 20 95 11/26/20 05:30 85 112/58 L 95 11/26/20 05:09 91 H 24 92 11/26/20 05:01 89 11/26/20 05:00 89 129/65 94 11/26/20 04:31 85 93 11/26/20 04:30 84 112/57 L 93 11/26/20 04:00 36.3 C L 88 111/59 L 92 11/26/20 03:31 86 91 11/26/20 03:30 90 123/61 93 11/26/20 03:25 85 21 93 11/26/20 03:01 87 93 11/26/20 03:00 86 115/57 L 93 11/26/20 02:30 88 115/59 L 94 11/26/20 02:01 90 93 11/26/20 02:00 92 H 118/60 93 11/26/20 01:31 91 H 93 11/26/20 01:30 90 118/59 L 93 11/26/20 01:01 94 H 92 11/26/20 01:00 93 H 115/60 92 11/26/20 00:31 91 H 92 11/26/20 00:30 88 112/59 L 93 11/26/20 00:01 93 H 93 11/26/20 00:00 36.6 C 95 H 116/63 93 11/25/20 23:31 95 H 92 11/25/20 23:30 94 H 111/56 L 92 11/25/20 23:01 94 H 92 11/25/20 23:00 91 H 98/58 L 92 11/25/20 22:40 94 H 23 92 11/25/20 22:31 95 H 92 11/25/20 22:30 95 H 110/59 L 92 11/25/20 22:01 96 H 92 11/25/20 22:00 95 H 100/60 92 11/25/20 21:31 96 H 92 11/25/20 21:30 96 H 108/62 92 Lab & Micro Results (Past 24 Hours) RBC 3.66 M/uL (4.2-5.4) L 11/26/20 WBC 18.32 K/uL (4.8-10.8) H 11/26/20 Hgb 10.4 g/dL (12.0-16.0) L 11/26/20 Hct 29.7 % (37-47) L 11/26/20 MCV 81.1 fL (80-100) 11/26/20 MCH 28.4 pg (25-34) 11/26/20 MCHC 35.0 g/dL (32-36) 11/26/20 RDW Standard Deviation 46.2 fL (36.4-46.3) 11/26/20 RDW Coefficient of Variation 15.5 % (11.5-14.5) H 11/26/20 Plt Count 14 K/uL (130-400) L* 11/26/20 Neutrophils (%) (Auto) 94.5 % 11/26/20 Lymphocytes (%) (Auto) 2.1 % 11/26/20 Monocytes # (Auto) 0.25 K/uL (0.11-0.59) 11/26/20 Eosinophils # (Auto) 0.06 K/uL (0-0.5) 11/26/20 Immature Granulocyte % (Auto) 1.6 % 11/26/20 Neutrophils # (Auto) 17.32 K/uL (1.4-6.5) H 11/26/20 Lymphocytes # (Auto) 0.39 K/uL (1.2-3.4) L 11/26/20 Monocytes # (Auto) 0.25 K/uL (0.11-0.59) 11/26/20 Eosinophils # (Auto) 0.06 K/uL (0-0.5) 11/26/20 Basophils # (Auto) 0.01 K/uL (0-0.2) 11/26/20 Immature Granulocyte # (Auto) 0.29 K/uL (0.00-0.02) H 11/26/20 Dohle Bodies 1+ 11/26/20 Na 135 mmol/L (136-145) L 11/26/20 K 3.0 mmol/L (3.5-5.1) L 11/26/20 Cl 98 mmol/L (98-107) 11/26/20 CO2 25 mmol/L (21-32) 11/26/20 Anion Gap 12.0 (3-11) H 11/26/20 BUN 59 mg/dl (7-18) H 11/26/20 Creatinine 4.61 mg/dl (0.6-1.2) H* 11/26/20 Estimated GFR ( Amer) 10.3 ml/min 11/26/20 Estimated GFR (Non-Af Amer) 8.9 ml/min 11/26/20 BUN/Creatinine Ratio 12.7 (10-20) 11/26/20 Glu 143 mg/dl (70-99) H 11/26/20 Ca 6.7 mg/dl (8.5-10.1) L 11/26/20 Phosphorus Level 3.8 mg/dl (2.5-4.9) 11/26/20 Mg 1.6 mg/dl (1.8-2.4) L 11/26/20 04:49 11/26/20 Calcium Level 6.7 mg/dl (8.5-10.1) L 11/26/20 04:49 11/26/20 Prothromb Time International Ratio 1.2 (0.9-1.1) H 11/26/20 04:49 11/26/20 Microbiology 11/24/20 10:55 Urine Culture - Preliminary Urine,Straight Cath Klebsiella pneumoniae Gram negative bacilli#2 11/24/20 11:28 Aerobic Blood Culture - Preliminary Blood Gram negative bacilli Anaerobic Blood Culture - Final 11/24/20 11:17 Aerobic Blood Culture - Preliminary Blood Gram negative bacilli Anaerobic Blood Culture - Preliminary Gram negative bacilli Diagnostic Findings (Past 24 Hours) Chest X-Ray 11/25/20 11:15 XR chest 1V portable HISTORY: 70 years-old Female resp failure acute respiratory failure COMPARISON: Chest radiograph of same day at 6:34 AM TECHNIQUE: Portable AP view of the chest FINDINGS: Endotracheal tube overlies the midline, 2.3 cm superior to the niya. Cardiac silhouette is enlarged. Pulmonary vascular congestion with persistent pulmonary edema, layering pleural effusions with bibasilar consolidation. Status post placement of an enteric tube distal tip terminating below the diaphragm outside the [id number]. The bones appear grossly intact. Chronic fracture deformity of the proximal left humerus. IMPRESSION: 1. Endotracheal tube terminates 2.3 cm superior to the niya. 2. Enteric tube courses below the diaphragm outside the field of view. 3. Cardiomegaly with persistent pulmonary edema. 4. Small pleural effusions with unchanged bibasilar consolidation. ACT 112: Negative or not required by law. The above report was generated using voice recognition software. It may contain grammatical, syntax or spelling errors. Electronically signed by: Dragan Fuller M.D. 11/25/2020 12:19 PM I & O Totals 24 Hours 11/25/20 11/26/20 11/27/20 06:59 06:59 06:59 Intake Total 7772.477 / 7772.477 4994.679 / 4994.679 522.507 / 522.507 Output Total 457 / 457 1116 / 1116 Balance 7315.477 / 7315.477 3878.679 / 3878.679 522.507 / 522.507 Cumulative 11/24/20 07:00 thru 11/26/20 08:21 Intake Total 03047.663 Output Total 1573 Balance 81235.663 RT Ventilator Mngmt (Last Documented) Ventilator Ordered Settings Ventilator Support Mode Assist Control 11/26/20 07:51 Respiratory Rate 20 11/26/20 07:50 Ventilator Tidal Volume 425 05/23/21 07:51 Setting Minute Ventilation 8.2 11/26/20 07:50 Positive End Expiratory 5 11/26/20 07:51 Pressure Fraction of Inspired Oxygen 0.4 11/26/20 07:53 Peak Inspiratory Flow 50 11/26/20 07:50 Machine Comment Changes made post ABG. 11/25/20 20:59 Ventilator - PT Measurements Respiratory Rate 20 Exhaled Tidal Volume 425 Minute Ventilation 8.2 Peak Inspiratory Airway 18 Pressure Mean Airway Pressure 9 Plateau Pressure 14 Respiratory Cycle Inspiratory: 1:3.4 Expiratory Ratio Inspiratory Phase Time 0.68 End-Tidal CO2 33 Static Lung Compliance 47.22 Dynamic Lung Compliance 32.69 Normal Static Lung Compliance 47.00 Coding Level of Care Code Critical Care 1st 30-74 mins Diagnoses Sepsis A41.9; R65.21; N17.9 Acute renal failure type: unspecified Sepsis acute organ dysfunction status: with acute organ dysfunction Sepsis type: sepsis due to unspecified organism Severe sepsis acute organ dysfunction type: acute renal failure Severe sepsis shock status: with septic shock Hydronephrosis concurrent with and due to calculi of kidney and ureter N13.2 MIKE (acute kidney injury) N17.9 Lactic acidosis E87.2 Coagulopathy D68.9 Time Spent (min) 40 (1) Sepsis Acute renal failure type: unspecified Sepsis acute organ dysfunction status: with acute organ dysfunction Sepsis type: sepsis due to unspecified organism Severe sepsis acute organ dysfunction type: acute renal failure Severe sepsis shock status: with septic shock Qualified Code(s): A41.9 - Sepsis, unspecified organism; R65.21 - Severe sepsis with septic shock; N17.9 - Acute kidney failure, unspecified
--- NOTE | 2020-11-26 09:17 | XRay Report ---
XR chest 1V portable HISTORY: Respiratory failure. COMPARISON: 11/25/2020. FINDINGS: Endotracheal tube terminates approximately 1 cm from the niya. Nasogastric tube terminate s below the diaphragm. The tip is not included on this study. Left subclavian central venous catheter terminates at the SVC. This remains unchanged. No pneumothorax. Trace bilateral pleural effusions pe rsist. The heart remains mildly enlarged. Chronic fracture deformity at the proximal left humerus. Th ere is mild pulmonary vascular congestion, unchanged. IMPRESSION: 1. The endotracheal tube terminates 1 cm from the niya. This should be pulled back by approximately 1 to 2 cm. 2. No change in the cardiomegaly, pulmonary vascular congestion, and trace bilateral pleural effusion s. 3. This finding was called/faxed to the referring physician following dictation. ACT 112: Negative or not required by law. Electronically signed by: Brad Langford M.D. 11/26/2020 9:16 AM
--- NOTE | 2020-11-26 09:19 | Urology Progress Note ---
Date of Service November 26, 2020 Assessment & Plan (1) Septic shock: Sepsis from infected stone - unfortunately, her condition remains quite critical - plan for transfer to [facility] today to allow CVVH Admission and Anticipated Discharge Date Admission Date: November 24, 2020 Subjective unfortunately, her clinical condition has not greatly improved overnight renal function continues to worsen needs dialysis, but hemodynamic status is still quite tenuous now intubated likely will require CVVH - planned transfer to [facility] to allow for this treatment Physical Exam Physical Exam: Intubated not responding bloody urine - limited output Results & Data ([facility]) Vital Signs (Past 12 Hours) Vital Signs Temp Pulse Resp BP Pulse Ox 11/26/20 07:50 84 20 95 11/26/20 05:30 85 112/58 L 95 11/26/20 05:09 91 H 24 92 11/26/20 05:01 89 11/26/20 05:00 89 129/65 94 11/26/20 04:31 85 93 11/26/20 04:30 84 112/57 L 93 11/26/20 04:00 36.3 C L 88 111/59 L 92 11/26/20 03:31 86 91 11/26/20 03:30 90 123/61 93 11/26/20 03:25 85 21 93 11/26/20 03:01 87 93 11/26/20 03:00 86 115/57 L 93 11/26/20 02:30 88 115/59 L 94 11/26/20 02:01 90 93 11/26/20 02:00 92 H 118/60 93 11/26/20 01:31 91 H 93 11/26/20 01:30 90 118/59 L 93 11/26/20 01:01 94 H 92 11/26/20 01:00 93 H 115/60 92 11/26/20 00:31 91 H 92 11/26/20 00:30 88 112/59 L 93 11/26/20 00:01 93 H 93 11/26/20 00:00 36.6 C 95 H 116/63 93 11/25/20 23:31 95 H 92 11/25/20 23:30 94 H 111/56 L 92 11/25/20 23:01 94 H 92 11/25/20 23:00 91 H 98/58 L 92 11/25/20 22:40 94 H 23 92 11/25/20 22:31 95 H 92 11/25/20 22:30 95 H 110/59 L 92 11/25/20 22:01 96 H 92 11/25/20 22:00 95 H 100/60 92 11/25/20 21:31 96 H 92 11/25/20 21:30 96 H 108/62 92 PG Care Time/CCT Total # of Minutes Spent Total Time Spent with Patient: Total time spent is greater than 50% in coordination of care (as documented) at patient's floor/unit and/or counseling patient: Coding Level of Care Code 34289 Subseq Hosp Care Lvl 2 Diagnoses Septic shock A41.9; R65.21
== END 2020-11-26 10:33 | disposition short-term general hospital (02) | DRG 853 ==
LOC: ED 10:23 → 1E 13:36 → SUATTDRO 13:36 → 1E 14:42